=== PATIENT | female | born 1985 | race Caucasian/White ===

== ENCOUNTER → 2018-05-11 21:24 | Outpatient (CLI) | payer MEDICAID, SELFPAY ==
[2018-05-11 23:01] LABS: Chlamydia Trachomatis by PCR Negative (Negative); Neisserai gonorrhoeae by PCR Negative (Negative); Probe Check PASS; Sample Adequacy Control PASS; Specimen Processing Control PASS
[2018-05-18 15:44] LABS: HPV APTIMA, High Risk Positive (Negative)
== END ==
PROVIDERS: Family Provider Internal Medicine; PCP Internal Medicine; Referring Provider Obstetrics & Gynecology; Visit Provider Obstetrics & Gynecology
DX: Z11.3 Encounter for screening for infections with a predominantly sexual mode of transmission (principal); Z12.4 Encounter for screening for malignant neoplasm of cervix
CPT/HCPCS: 87491; 87591; 88175; G0145

== ENCOUNTER → 2018-05-16 16:24 | Outpatient (CLI) | payer MEDICAID, SELFPAY ==
[2018-05-16 18:26] LABS: HIV - WCH Non-Reactive (Nonreactive)
[2018-05-18 20:07] LABS: HCV Quant. RNA PCR HCV Not Detected IU/mL (.)
[2018-05-19 05:27] LABS: Rapid Plasmin Reagin (RPR) NONREACTIVE (NONREACTIVE)
[2018-05-19 09:08] LABS: HEPATITIS B SURFACE AG Negative (Negative); HSV 1 IgG < 0.91 index (0.00-0.90); HSV 2 IgG < 0.91 index (0.00-0.90)
== END ==
PROVIDERS: Family Provider Internal Medicine; PCP Internal Medicine; Referring Provider Obstetrics & Gynecology; Visit Provider Obstetrics & Gynecology
DX: Z11.3 Encounter for screening for infections with a predominantly sexual mode of transmission (principal)
CPT/HCPCS: 36415; 86592; 86695; 86696; 86703; 87340; 87522

== ENCOUNTER → 2018-06-01 15:20 | Outpatient (CLI) | payer MEDICAID, SELFPAY ==
[2018-06-01 16:40] LABS: Absolute Lymphocyte Count 1.81 X10^3/ul (0.83-4.51); Absolute Neutrophil Count 2.8 X10^3/uL (2.0-7.7); Basophil# 0.02 X10^3/uL; Basophil% 0.4 % (0-1); Eosinophil# 0.08 X10^3/uL; Eosinophils% 1.6 % (0-5); Hematocrit 42.6 % (37-47); Hemoglobin 13.8 g/dl (12.0-15.0); Lymphocyte # 1.81 X10^3/ul (4.0); Lymphocyte % 35.8 % (19-41); Mean Corp Hgb Conc 32.4 g/gl (32-36); Mean Corpuscular Hgb 30.8 pg (27.0-32.0); Mean Corpuscular Volume 95.1 fL (81-99); Mean Platelet Vol. 10.9 fl (6.2-12.0); Monocyte# 0.38 X10^3/uL; Monocyte% 7.5 % (0-10); Neutrophil # 2.76 X10^3/uL (2.7-7.7); Neutrophil % 54.5 % (47-70); Platelet Count 245 K/mm3 (150-450); RBC Distribution Width CV 12.5 % (11.6-14.6); RBC Distribution Width SD 42.5 fl (35.1-43.9); Red Blood Count 4.48 M/mm3 (4.2-5.4); White Blood Count 5.1 K/mm3 (4.4-11.0)
[2018-06-01 16:46] LABS: POSITIVE COUNT NO; POSITIVE DIFFERENTIAL NO; POSITIVE MORPHOLOGY NO
[2018-06-01 16:51] LABS: Thyroid Stim Hormone (TSH) 1.43 uIU/mL (0.358-3.74)
== END ==
PROVIDERS: Family Provider Internal Medicine; PCP Internal Medicine; Referring Provider Internal Medicine; Visit Provider Obstetrics & Gynecology
DX: N93.9 Abnormal uterine and vaginal bleeding, unspecified (principal)
CPT/HCPCS: 36415; 84443; 85025

== ENCOUNTER → 2018-11-22 | Outpatient (CLI) | payer MEDICAID, SELFPAY ==
[2018-11-22 08:09] VITALS: BMI 23.4
--- NOTE | 2018-11-22 08:20 | RAD_ITS ---
STUDY: X-RAY - LEFT WRIST REASON FOR EXAM: Female, 33 years old. Pain, decreased range of motion TECHNIQUE: 3 view(s) of the wrist were obtained. COMPARISON: None. FINDINGS: Normal visualized distal radius and ulna. Normal radiocarpal articulation. Normal distal radioulnar articulation. Normal carpal bones. Normal carpal articulations. Normal carpometacarpal articulation of the thumb. Normal second through fifth carpometacarpal articulations. Normal visualized metacarpal bones. The soft tissue structures are unremarkable. RAD/Wrist min 3 Views IMPRESSION: Normal x-ray examination of the wrist. Electronically Signed: Stew Soriano MD at 8:51 EDT , Service support ,
--- NOTE | 2018-11-22 08:20 | RAD_ITS ---
STUDY: X-RAY - CERVICAL SPINE REASON FOR EXAM: Female, 33 years old. Neck pain and headache TECHNIQUE: 6 view(s) of the cervical spine were obtained. COMPARISON: None FINDINGS: Normal anterior atlantoaxial articulation. Normal odontoid process. Normal cervical lordosis. Normal vertebral bodies and endplates. Normal disc space heights. Normal visualized intervertebral neuroforamina. The soft tissue structures are unremarkable. RAD/Cerv Spine 4 or 5 Views IMPRESSION: Normal x-ray examination of the visualized cervical spine. Electronically Signed: Stew Soriano MD at 8:52 EDT , Service support ,
== END | disposition home or self-care (01) ==
LOC: HPRAD 08:19
PROVIDERS: Family Provider Internal Medicine; PCP Internal Medicine; Referring Provider Physician Assistant; Visit Provider Physician Assistant
DX: M54.12 Radiculopathy, cervical region (principal); M25.512 Pain in left shoulder
CPT/HCPCS: 72050; 73110

== ENCOUNTER → 2019-05-28 16:31 | Outpatient (CLI) | payer MEDICAID, SELFPAY ==
[2019-05-28 16:04] VITALS: BMI 24.3
[2019-06-02 13:43] LABS: HPV APTIMA, High Risk Negative (Negative)
== END ==
PROVIDERS: Family Provider Internal Medicine; PCP Internal Medicine; Referring Provider Obstetrics & Gynecology; Visit Provider Obstetrics & Gynecology
DX: R30.0 Dysuria (principal); R87.810 Cervical high risk human papillomavirus (HPV) DNA test positive; N89.8 Other specified noninflammatory disorders of vagina
CPT/HCPCS: 87070; 87077; 87086; 87205; 87624; 88175; G0145

== ENCOUNTER → 2020-10-22 07:23 | Outpatient (CLI) | payer MEDICAID, SELFPAY ==
--- NOTE | 2020-10-22 07:24 | MRI_ITS ---
STUDY: MRI LEFT KNEE REASON FOR EXAM: Medial knee pain, twisting injury in August, prior surgery in 2010. TECHNIQUE: Standardized fat and water weighted pulse sequences were obtained in all 3 orthogonal planes. COMPARISON: Radiographs 08/25/2020 and MRI report 09/04/2010. FINDINGS: There is mild intrasubstance myxoid degeneration posterior horn of the meniscus without discrete medial meniscal tear. Normal hyaline cartilage of the medial femorotibial compartment. Normal medial femoral condyle and tibial plateau. Normal medial collateral ligamentous complex (MCL). Normal distal semimembranosus, gracilis and semitendinosus tendons. Normal lateral meniscus. There are postoperative changes from microfracture of the lateral femoral condyle (proton-density sagittal image 29) with mild irregularity of the overlying fibrocartilage (T2 sagittal images 17). Normal proximal tibiofibular articulation. Normal lateral collateral (fibular) ligament. Normal popliteus tendon. Normal biceps femoris tendon. Normal anterior cruciate ligament (ACL). Normal posterior cruciate ligament (PCL). There is mild lateral subluxation of the patella (T2 axial image 12). Normal hyaline cartilage of the patellofemoral compartment. Normal medial and lateral patellar retinaculum. Normal quadriceps tendon. Normal patellar tendon. Normal Hoffa''s fat pad. There is a minimal volume of fluid in the knee joint. There is a very small popliteal cyst (T2 coronal image 6). The otherwise visualized osseous structures are unremarkable. MRI/Lower Ext Joint Only (Routine) IMPRESSION: Mild irregularity of the overlying fibrocartilage of the lateral femoral condyle status post microfracture. Mild lateral subluxation of the patella. Very small popliteal cyst. No demonstrated meniscal or ligamentous injury. Electronically Signed: John Paul Aguilar MD at 8:55 EDT Tel , Service support ,
== END ==
PROVIDERS: PCP Internal Medicine; Referring Provider Orthopaedic Surgery; Visit Provider Orthopaedic Surgery
DX: S83.412A Sprain of medial collateral ligament of left knee, initial encounter (principal); M25.562 Pain in left knee
CPT/HCPCS: 73721

== ENCOUNTER → 2020-12-09 17:17 | Outpatient (CLI) | payer MEDICAID, SELFPAY ==
[2020-12-09 16:04] VITALS: BMI 25.4
[2020-12-15 12:29] LABS: HPV APTIMA, High Risk Negative (Negative)
== END ==
PROVIDERS: PCP Internal Medicine; Referring Provider Obstetrics & Gynecology; Visit Provider Obstetrics & Gynecology
DX: Z12.4 Encounter for screening for malignant neoplasm of cervix (principal)
CPT/HCPCS: 87624; 88175; G0145

== ENCOUNTER → 2021-01-15 07:00 | Outpatient (CLI) | payer MEDICAID, SELFPAY ==
[2020-12-09 16:04] VITALS: BMI 25.4
--- NOTE | 2021-01-15 07:05 | CT_ITS ---
STUDY: CT ABDOMEN AND PELVIS WITH CONTRAST REASON FOR EXAM: Female, 35 years old. Left upper quadrant and left flank pain for 2 months. RADIATION DOSAGE (If Supplied By Facility): CTDIvol = ( 11.91 ) mGy, DLP = ( 522.04 ) mGycm TECHNIQUE: Transaxial images were obtained from the dome of the diaphragm to the symphysis pubis with oral contrast. Oral and amp; IV Readi-CAT and amp; 100mL Isovue-300 was administered. Sagittal and coronal images were reconstructed. Individualized dose optimization techniques were used for this CT. COMPARISON: None. FINDINGS: There is a 6.9 mm calcified granuloma in the anterior aspect of the right middle lobe. The visualized portions of the heart are within normal limits. Normal liver. Normal gallbladder and extrahepatic biliary system. Borderline splenomegaly. Normal pancreas. Normal bilateral adrenal glands. Normal right kidney. Normal left kidney. Normal visualized stomach. Normal small intestine. Large amount of fecal material is seen throughout the colon. The appendix is visualized and appears normal. Normal abdominal aorta. Normal inferior vena cava. Normal retroperitoneum. Normal urinary bladder. There is a 3.1 cm x 1.7 cm right ovarian cyst. There is a small umbilical hernia containing fat. Normal osseous structures. CT/Abdomen/Pelvis WITH Contrast IMPRESSION: Large amount of fecal material is seen in the colon. Borderline splenomegaly. 3.1 cm x 1.7 cm right ovarian cyst. Electronically Signed: Marcello Mascorro MD at 9:03 EDT , Service support ,
== END ==
PROVIDERS: PCP Internal Medicine
DX: R10.9 Unspecified abdominal pain (principal)
CPT/HCPCS: 74177; Q9967

== ENCOUNTER 2021-01-24 14:43 | Emergency (ER) | payer MEDICAID, SELFPAY ==
[2020-12-09 16:04] VITALS: BMI 25.4
[2021-01-24 14:43] VITALS: BP 133/88; PULSE 108; RESP 15; TEMP 35.9; O2SAT 97; BMI 24.5
--- NOTE | 2021-01-24 16:01 | EX.ED.DYSGE1 ---
HPI History of Present Illness Chief Complaint: Abd Pain Informant: patient Narrative Narrative: Patient is a 35-year-old female who presents to the emergency department for left upper quadrant abdominal pain. This has been going on since Tuesday intermittently. She states over the past week it has becoming more constant. She has had a large work-up done at the [facility]. This included ultrasounds, lab work. She was seen 1 week ago had a CT scan of her abdomen. She describes the pain as a 7 out of 10. It goes around to the left side of her abdominal wall. She states that lying on her right side does seem to relieve this. She has not been vomiting. She denies any change in bowel movements. She denies any urinary symptoms or vaginal bleeding/discharge. She is not sure if she could be at this point. No previous abdominal surgeries. [facility] Medical History (Updated 01/24/21 @ 19:[address] Jayy Sandoval DO) Abdominal pain Cervical high risk HPV (human papillomavirus) test positive History of abnormal cervical Pap smear history of ANANT Knee pain Home Medications multivitamin 1 cap PO DAILY 04/17/18 [History Last Taken Unknown] fluticasone propionate 50 mcg/actuation nasal spray,suspension 1 spray INTRANASAL DAILY 01/22/20 [History Last Taken Unknown] etonogestrel 68 mg subdermal implant 1 implant SUBDERMAL ONCE 12/09/20 [History Last Taken Unknown] loratadine 10 mg tablet 10 mg PO DAILY 12/09/20 [History Last Taken Unknown] dicyclomine 20 mg PO BID PRN #20 tab 01/24/21 [Rx Last Taken Unknown] Allergy/AdvReac Type Severity Reaction Status Date / Time morphine AdvReac Other Verified 10/28/20 08:45 Family History Father Hypertension Surgical History History of knee surgery Social History Smoking Status: Never smoker second hand exposure: No alcohol intake: current details: social substance use type: does not use caffeine: Yes what type of physical activity do you participate in: none and walking frequency: 3-4 times per week duration: 15-30 minutes/day seatbelt use: always do you feel safe at home: Yes additional social history: single- babysitting ROS ROS ED Constitutional Constitutional ED: Denies chills or fever(s) Eyes Eyes: Denies change in vision ENT ENT ED: Denies epistaxis or rhinorrhea Cardiovascular Cardiovascular: Denies chest pain or palpitations Respiratory/Chest Respiratory/Chest: Denies cough, dyspnea or dyspnea on exertion Gastrointestinal Gastrointestinal: Reports abdominal pain and melena; Denies diarrhea, nausea or vomiting Genitourinary Genitourinary ED: Denies dysuria, hematuria or urinary frequency Musculoskeletal Musculoskeletal: Denies back pain or neck pain Integumentary Denies rash Neurologic Neurologic: Denies dizziness, headache(s) or weakness EXAM Physical Exam Const Vital Signs: 01/24/21 14:43 01/24/21 16:24 Temperature 96.7 F L Temperature Source Temporal Pulse Rate 108 H 84 Respiratory Rate 15 16 Blood Pressure 133/88 H 118/74 Blood Pressure Mean 103 88 Pulse Ox 97 100 Oxygen Delivery Method Room Air Room Air Positive well nourished and well developed General Appearance ED: well developed and NAD HEENT Reports normocephalic, head/scalp atraumatic and moist mucous membranes Eyes PERRL and EOMs intact bilaterally Neck no lymphadenopathy and supple General: Negative for tenderness Chest Wall inspection of chest normal Resp normal respiratory effort and clear to auscultation bilaterally Auscultation: Negative for rales, rhonchi or wheezes Cardio regular rate, regular rhythm and no murmurs GI normal to inspection, nondistended, normoactive bowel sounds GI Narrative: Tenderness on the left upper quadrant. Palpation: soft; Negative for guarding or rebound tenderness present Back/Spine no CVA tenderness Extremity normal to inspection General Extremety ED: Negative for edema or tenderness General Extremity: Negative for edema Neuro CN's II-XII intact bilaterally and no sensory deficits noted Sensorium / Orientation: alert Motor Exam: strength 5/5 throughout Psych mental status grossly normal Skin no rashes or lesions noted MDM MDM MDM Narrative Medical decision making narrative: Patient presents to the emerge department for acute on chronic exacerbation of left upper quadrant abdominal pain. Upon arrival to the emergency department she is mildly tachycardic. She has tenderness of the left upper quadrant. She did recently have a CT scan of her abdomen/pelvis. Will repeat basic lab work here and treat with Bentyl. Patient's lab work was very unremarkable. She does not have a high white blood cell count. No electrolyte disturbance. Liver enzymes within normal limits. Lipase is normal. Urine does not show any signs of infection. test is negative. On repeat examination she is crying holding her upper abdomen. Due to this we did perform a CT scan. This did show granulomatous calcifications of the spleen, intrarenal stones without any evidence of obstruction. This was all described to her. Given the fact this has been going on for multiple months I do feel she is appropriate for outpatient follow-up. She has been try to get into see a GI doctor and has been having difficulties will make a social work referral to help her with this. We will write a prescription for Bentyl for home treatment. Return precautions are reviewed with her including any worsening pain, developing fever/chills. She understands and is agreeable this plan. Discharged home in stable condition. All questions were answered. Lab Data Labs: Laboratory Results - last 24 hr 01/24/21 01/24/21 01/24/21 16:15 16:15 16:35 WBC 5.6 RBC 4.66 Hgb 14.2 Hct 44.1 MCV 94.6 MCH 30.5 MCHC 32.2 RDW Std Deviation 43.1 RDW Coeff of Ruthy 12.4 Plt Count 257 MPV 10.2 Immature Gran % (Auto) 0.200 Neut % (Auto) 58.8 Lymph % (Auto) 32.9 [place] % (Auto) 6.6 Eos % (Auto) 1.1 Baso % (Auto) 0.4 Absolute Neuts (auto) 3.3 Absolute Lymphs (auto) 1.84 Nucleated RBC % 0 Sodium 141 Potassium 3.6 Chloride 106 Carbon Dioxide 30.0 Anion Gap 5 BUN 12 Creatinine 0.83 Estim Creat Clear Calc 83.25 Est GFR (MDRD) Af Amer 102 Est GFR (MDRD) Non-Af 84 BUN/Creatinine Ratio 14.5 Glucose 96 Calcium 9.2 Total Bilirubin 0.60 AST 14 L ALT 27 Alkaline Phosphatase 105 Total Protein 7.7 Albumin 4.2 Globulin 3.5 Albumin/Globulin Ratio 1.2 Lipase 100 Urine Color Yellow Urine Clarity Clear Urine pH 7.0 Ur Specific [place] 1.010 Urine Protein Negative Urine Glucose (UA) Normal Urine Ketones Negative Urine Occult Blood Negative Urine Nitrite Negative Urine Bilirubin Negative Urine Urobilinogen Normal Ur Leukocyte Esterase 25 H Urine RBC 0-5 SEEN Urine WBC 0-5 SEEN Ur Squamous Epith Cells 0-5 SEEN Urine Bacteria 0 SEEN Urine Mucus 0 SEEN Urine Test Negative Radiography Diagnostic Testing: Radiology Impression Abdomen/Pelvis CT 01/24/21 17:59 IMPRESSION: Bilateral nephrolithiasis without hydronephrosis. Electronically Signed: Iker Singh MD ([place]) at 18:57 EDT , Service support , Discharge Plan Triage Chief Complaint: Abd Pain ED Provider: Jayy Sandoval Dx/Rx/DC Orders Clinical Impression: Abdominal pain Instructions: Abdominal Pain Prescriptions: New dicyclomine 20 mg tablet 20 mg PO BID PRN (Reason: pain) Qty: 20 RF: 0 No Action multivitamin capsule capsule 1 cap PO DAILY RF: 0 loratadine [Claritin] 10 mg tablet 10 mg PO DAILY RF: 0 Nexplanon 68 mg implant 1 implant subdermal ONCE RF: 0 fluticasone propionate 50 mcg/actuation spray,suspension 1 spray INTRANASAL DAILY RF: 0 Primary Care Provider: Elly Rosa Referrals: Elly Rosa MD [Primary Care Provider] - 2 Days Activity Restrictions/Additional Instructions: Social work consult has been made to help schedule your appointment with GI specialty. Disposition Disposition: Home, Self Care Discharge Date/Time: 01/24/21 19:41
[2021-01-24 16:24] VITALS: BP 118/74; PULSE 84; RESP 16; O2SAT 100
[2021-01-24] MEDS: Dicyclomine 20 MG/2 ML Vial IM (16:27)
[2021-01-24 16:42] LABS: Bacteria 0 SEEN /hpf (None Seen); Mucous, Urine 0 SEEN /hpf (<or=2+)
[2021-01-24 16:52] LABS: Color, Urine Yellow (Yellow); Glucose, Dipstick Normal (Normal); Ketone-Dipstick Negative (Negative); Leukocyte Esterase-Dipstick 25 /ul (Negative); Nitrite-Dipstick Negative (Negative); Occult Blood-Urine Negative /ul (Negative); Protein-Dipstick Negative (Negative); Urine Bilirubin Dipstick Negative (Negative); Urine Clarity Clear (Clear); Urine Urobilinogen Normal (Normal)
[2021-01-24 16:58] LABS: Internal QC Validated? YES +Cl - CLEAR BKGD; Pregnancy, Urine Negative Negative
[2021-01-24 17:01] LABS: Absolute Lymphocyte Count 1.84 X10^3/uL (0.83-4.51); Absolute Neutrophil Count 3.3 X10^3/uL (2.0-7.7); Basophil# 0.02 X10^3/uL; Basophil% 0.4 % (0-1); Eosinophil# 0.06 X10^3/uL; Eosinophils% 1.1 % (0-5); Hematocrit 44.1 % (37-47); Hemoglobin 14.2 g/dL (12.0-15.0); Lymphocyte # 1.84 X10^3/ul (0.83-4.51); Lymphocyte % 32.9 % (19-41); Mean Corp Hgb Conc 32.2 g/dL (32-36); Mean Corpuscular Hgb 30.5 pg (27.0-32.0); Mean Corpuscular Volume 94.6 fL (81-99); Mean Platelet Vol. 10.2 fl (6.2-12.0); Monocyte# 0.37 X10^3/uL; Monocyte% 6.6 % (0-10); NRBC Flagged by Analyzer 0 % (0-5); Neutrophil # 3.29 X10^3/uL (2.7-7.7); Neutrophil % 58.8 % (47-70); Platelet Count 257 K/mm3 (150-450); RBC Distribution Width CV 12.4 % (11.6-14.6); RBC Distribution Width SD 43.1 fl (35.1-43.9); Red Blood Count 4.66 M/mm3 (4.2-5.4); White Blood Count 5.6 K/mm3 (4.4-11.0)
[2021-01-24 17:01] LABS: Squamous Epithelial Cells - UA 0-5 SEEN /hpf (5-10)
[2021-01-24 17:02] LABS: Red Blood Cells-Urine 0-5 SEEN /hpf (0-5); White Blood Cells 0-5 SEEN /hpf (0-5)
[2021-01-24 17:09] LABS: ALB/GLOB Ratio 1.2 RATIO (0.9-2.4); AST(SGOT) 14 U/L (15-37); Alanine Aminotransfer ALT/SGPT 27 U/L (13-56); Albumin, Serum 4.2 g/dL (3.2-5.0); Alkaline Phosphatase 105 U/L (45-117); Anion Gap 5 (5-15); BUN 12 mg/dL (7-18); BUN/Creat Ratio 14.5 RATIO (10-20); Calcium,Total 9.2 mg/dL (8.5-10.1); Chloride 106 mmol/L (98-107); Creatinine, Serum 0.83 mg/dL (0.55-1.02); EST Glomerular Filtration Rate 84 mL/min (>60); Est Glom Filt Rate - Afr Amer 102 mL/min (>60); Estimated Creatinine Clearance 83.25 ml/min; Globulin 3.5 g/dL (2.2-4.2); Glucose 96 mg/dL (74-106); Lipase 100 U/L (73-393); Potassium 3.6 mmol/L (3.5-5.1); Protein, Total 7.7 g/dL (6.4-8.2); Sodium Level 141 mmol/L (136-145)
--- NOTE | 2021-01-24 17:59 | CT_ITS ---
EXAM: CT ABDOMEN AND PELVIS WITH INTRAVENOUS CONTRAST CLINICAL INDICATION: LUQ pain x 2 months TECHNIQUE: Helically acquired images were obtained of the abdomen and pelvis with intravenous contrast. This CT exam was performed using one or more of the following dose reduction techniques: automated exposure control, adjustment of the mA and/or kV according to patient size, and/or use of iterative reconstruction technique. This report was created using [employer] report generation technology. CONTRAST: IV 100mL Isovue-300 COMPARISON: 01/15/2021 FINDINGS: LOWER THORAX: Benign granuloma in the right lower lobe. No cardiomegaly. No significant pericardial effusion. ABDOMEN: LIVER: Unremarkable. Homogeneous. No focal mass. GALLBLADDER AND BILE DUCTS: Unremarkable. No calcified gallstones. No gallbladder distention or wall edema. No intra- or extrahepatic biliary ductal dilation. PANCREAS: Unremarkable. No focal cystic or solid mass. SPLEEN: Granulomatous calcifications of the spleen. No perisplenic fluid collection/stranding. ADRENALS: Unremarkable. No nodules. KIDNEYS AND URETERS: Nonobstructing 4 mm calculus of the left kidney is stable. Punctate calcification of the right kidney is stable. Normal renal size and position. STOMACH AND BOWEL: Unremarkable. No stomach or bowel distention. No focal inflammatory change. PELVIS: APPENDIX: No evidence of acute appendicitis. BLADDER: Unremarkable. REPRODUCTIVE: Unremarkable as visualized. No mass. ABDOMEN and PELVIS: INTRAPERITONEAL SPACE: Partial involution of right ovarian follicle/cyst. No pelvic free fluid. No free air. BONES/JOINTS: Unremarkable. No suspicious lytic or blastic abnormality. SOFT TISSUES: Unremarkable. No discrete abdominal or pelvic wall hernia. VASCULATURE: Unremarkable. Abdominal aorta is non-dilated. LYMPH NODES: Unremarkable. No enlarged lymph nodes. CT/Abdomen/Pelvis W IV Cont ONLY IMPRESSION: Bilateral nephrolithiasis without hydronephrosis. Electronically Signed: Iker Singh MD ([place]) at 18:57 EDT , Service support ,
[2021-01-24] MEDS: Ketorolac 15 MG/ML Vial IV (18:20)
--- NOTE | 2021-01-26 10:28 | CASEMGMT ---
ANITA PEREZ Referral Follow-up: Phone call placed to patient this AM. Pt explained that she has undergone a work-up at [facility] regarding her abd pain. Pt's next scheduled appointment is on 02/10/21 with [facility] Sandra who works under the GI physician. Pt was unable to recall Sandra's last name or the GI physician's name. Pt states her abd pain has been increasing which necessitated her visit to the ED on Tuesday. During that visit she noted the MSO4 did not relieve her pain but the Bentyl that she has been taking since discharge has been keeping it under control. Pt notes her pain to be constant and rates her pain currently at a 4-5 but without the medication it increases to a 10. Pt states the ED physician felt a colonoscopy earlier rather than later would be beneficial and recommended f/u with the [facility]. Pt states she would prefer to receive her care locally and would like to get scheduled with one of the surgeons from [facility] as any procedure needed she would prefer to have done at [facility]. This RN CM explained to pt that there is not currently a GI physician locally but that one will be coming later this summer which pt states she was aware. This RN CM explained that depending on her needs, she may need to follow-up with a GI physician. Pt expressed understanding. This RN CM called [facility] and spoke with Anne who states that Dr. Ziegler does have availability to see pt this week. Anne explained that depending on findings, pt may need to follow-up with GI but that Dr. Ziegler would be able to do the colonoscopy prior to 02/10/21. Pt name provided to Anne who states an office staff member will contact pt to schedule an appointment with Dr. Ziegler. This RN CM called pt to explain plan following discussion with Anne at [facility]. Pt agreeable to plan and was able to reiterate that depending on findings, she may need to follow-up with a GI physician. Pt denies any further needs at this time. Rocio Mejia RN CM
== END 2021-01-24 19:41 | disposition home or self-care (01) ==
PROVIDERS: Emergency Provider Emergency Medicine; PCP Internal Medicine
DX: R10.12 Left upper quadrant pain (principal); D73.89 Other diseases of spleen
CPT/HCPCS: 74177; 80053; 81001; 81025; 83690; 85025; 96372; 96374; 99283; Q9967; A4216

== ENCOUNTER 2021-01-30 09:12 | Emergency (ER) | payer MEDICAID, SELFPAY ==
[2021-01-27 08:39] VITALS: BMI 24.5
[2021-01-30 09:13] VITALS: BP 123/99; PULSE 127; RESP 20; TEMP 36.6; O2SAT 98; BMI 25.4
--- NOTE | 2021-01-30 09:24 | ED.VIS.DYS ---
HPI History of Present Illness Chief Complaint: Constipation Informant: patient Onset/Context/Timing Onset: Weeks Context: gradual Timing: Intermittent Current Severity: Mild Maximum Severity: Mild Narrative Narrative: 35-year-old female no significant past medical history prior knee scopes. She is never had any abdominal surgeries. She is currently on implanted control. States basically since this past Easter she has had intermittent abdominal complaints including constipation and diarrhea. She has been worked up and has had several CAT scans and has upcoming colonoscopy with Dr. Rosario Ziegler. She denies any fever or chills. She denies any weight loss. Prior similar symptoms: Yes Recent Illness/Hospitalization: No PFSH PFSH Medical History Abdominal pain Alcohol use Back pain Cervical high risk HPV (human papillomavirus) test positive Heartburn History of abnormal cervical Pap smear history of ANANT History of stress test Hx of constipation Knee pain Migraine headache Non-smoker Wears glasses Home Medications multivitamin 1 cap PO DAILY 04/17/18 [History Last Taken Unknown] fluticasone propionate 50 mcg/actuation nasal spray,suspension 1 spray INTRANASAL DAILY 01/22/20 [History Last Taken Unknown] etonogestrel 68 mg subdermal implant 1 implant SUBDERMAL ONCE 12/09/20 [History Last Taken Unknown] loratadine 10 mg tablet 10 mg PO DAILY 12/09/20 [History Last Taken Unknown] dicyclomine 20 mg PO BID PRN #20 tab 01/24/21 [Rx Last Taken Unknown] pantoprazole 40 mg tablet,delayed release 40 mg PO DAILY #30 tab 01/27/21 [Rx Last Taken Unknown] potassium chloride 10 mEq tablet,extended release 10 meq PO DAILY tab 01/27/21 [History Last Taken Unknown] ondansetron 4 mg PO Q6H PRN #10 tab 01/30/21 [Rx Last Taken Unknown] Allergy/AdvReac Type Severity Reaction Status Date / Time No Known Allergies Allergy Verified 01/30/21 09:15 Family History Father Hypertension Grandmother Colon cancer Thyroid disorder Diabetes Surgical History History of knee surgery Social History Smoking Status: Never smoker second hand exposure: No alcohol intake: current details: social substance use type: does not use caffeine: Yes what type of physical activity do you participate in: none and walking frequency: 3-4 times per week duration: 15-30 minutes/day seatbelt use: always do you feel safe at home: Yes additional social history: single- babysitting ROS ROS ED ROS Narrative GI symptoms such as intermittent cramping, diarrhea and constipation. Review of Systems ROS Unobtainable: Denies due to encephalopathy Constitutional Constitutional ED: Denies fever(s) Eyes Eyes: Denies change in vision ENT ENT ED: Denies ear pain Cardiovascular Cardiovascular: Denies chest pain Respiratory/Chest Respiratory/Chest: Denies cough or dyspnea Gastrointestinal Gastrointestinal: Reports abdominal pain, constipation, diarrhea, nausea and vomiting; Denies melena Genitourinary Genitourinary ED: Denies dysuria Musculoskeletal Musculoskeletal: Denies myalgias Integumentary Denies rash Neurologic Neurologic: Denies headache(s) Psychiatric Psychiatric: Denies depression Endocrine Endocrinology: Denies polyuria Hematologic/Lymphatic Hematologic/Lymphatic: Denies easy bruising Allergic/Immunologic Allergic/Immunologic ED: Denies urticaria EXAM Physical Exam Narrative Exam Narrative: Young female no acute distress vital signs stable afebrile. Exam benign. Moist mucous membranes. Abdomen soft, nontender. Nondistended. Normal bowel sounds no peritoneal signs. No hernias or masses. Const Vital Signs: 01/30/21 09:13 Temperature 97.9 F Temperature Source Temporal Pulse Rate 127 H Respiratory Rate 20 H Blood Pressure 123/99 H Blood Pressure Mean 107 Pulse Ox 98 Oxygen Delivery Method Room Air Positive well nourished and well developed General Appearance ED: well developed HEENT Reports moist mucous membranes atraumatic; Negative for trauma or tenderness Eyes PERRL and EOMs intact bilaterally Neck no lymphadenopathy, supple, no meningeal signs and no JVD General: Negative for tenderness Resp normal respiratory effort and clear to auscultation bilaterally Cardio regular rate, regular rhythm, S1 normal heart sound, S2 normal heart sound and no murmurs GI non-tender, non-distended and no masses Auscultation: normoactive bowel sounds; Negative for hyperactive bowel sounds Palpation: soft; Negative for tender, guarding or rebound tenderness present Back/Spine no CVA tenderness and normal to inspection Extremity normal to inspection General Extremety ED: Negative for edema or tenderness General Extremity: Negative for edema Neuro oriented x3 Sensorium / Orientation: alert, oriented to person and oriented to place; Negative for orientation impaired Psych mental status grossly normal Skin Lesions: no lesions Rashes: no rashes MDM MDM MDM Narrative Medical decision making narrative: 35-year-old female with recent GI symptoms. She has had extensive evaluation including CAT scans and has upcoming endoscopy. Should be treated IV fluids. KUB will be obtained to see if she is significantly constipated. We will check a CBC and a chemistry. Repeat exam patient is doing well at 10:57 AM. I spoke to her general surgeon. Patient be discharged home with [facility] with outpatient follow-up. Lab Data Attestation: I reviewed the patient's lab results. Lab results narrative: CBC normal white count 9. Hemoglobin 14.7. Chemistries normal gap of 8 creatinine 0.84. Glucose normal. Labs: Laboratory Results - last 24 hr 01/30/21 01/30/21 09:56 09:56 WBC 9.1 RBC 4.71 Hgb 14.7 Hct 43.9 MCV 93.2 MCH 31.2 MCHC 33.5 RDW Std Deviation 42.6 RDW Coeff of Ruthy 12.3 Plt Count 224 MPV 10.3 Immature Gran % (Auto) 0.100 Neut % (Auto) 91.2 H Lymph % (Auto) 2.5 L Reagan % (Auto) 6.0 Eos % (Auto) 0.0 Baso % (Auto) 0.2 Absolute Neuts (auto) 8.3 H Absolute Lymphs (auto) 0.23 L Nucleated RBC % 0 Differential Comment SCANNED Sodium 140 Potassium 3.6 Chloride 106 Carbon Dioxide 26.0 Anion Gap 8 BUN 17 Creatinine 0.84 Estim Creat Clear Calc 82.26 Est GFR (MDRD) Af Amer 101 Est GFR (MDRD) Non-Af 83 BUN/Creatinine Ratio 20.3 H Glucose 126 H Calcium 9.3 Radiography Diagnostic Testing: Radiology Impression KUB X-Ray 01/30/21 09:30 IMPRESSION: Moderate amount of fecal material is seen in the colon. Electronically Signed: Marcello Mascorro MD at 10:01 EDT , Service support , KUB 2 films both AP view. She has no constipation whatsoever. Normal bowel gas pattern. Limited to almost no stool. No signs of obstruction. Interpreted by myself. Discharge Plan Triage Chief Complaint: Constipation ED Provider: Adam Morgan Dx/Rx/DC Orders Clinical Impression: Abdominal pain, Vomiting Instructions: Abdominal Pain, ED Vomiting (Adult) Prescriptions: New ondansetron 4 mg tablet,disintegrating 4 mg PO Q6H PRN (Reason: nausea and vomiting) Qty: 10 RF: 0 No Action multivitamin capsule capsule 1 cap PO DAILY RF: 0 loratadine [Claritin] 10 mg tablet 10 mg PO DAILY RF: 0 Nexplanon 68 mg implant 1 implant subdermal ONCE RF: 0 fluticasone propionate 50 mcg/actuation spray,suspension 1 spray INTRANASAL DAILY RF: 0 potassium chloride 10 mEq tablet extended release 10 meq PO DAILY RF: 0 pantoprazole 40 mg tablet,delayed release (DR/EC) 40 mg PO DAILY Qty: 30 RF: 3 dicyclomine 20 mg tablet 20 mg PO BID PRN (Reason: pain) Qty: 20 RF: 0 Primary Care Provider: Elly Rosa Referrals: Elly Rosa MD [Primary Care Provider] - 3-5 Days if not improving Activity Restrictions/Additional Instructions: Plenty of fluids and rest. Increase your diet slowly as tolerated. Zofran as needed for nausea. You can either swallow it or let it dissolve underneath your tongue. Follow-up with your doctor if not improving return if you are feeling a lot worse. Your labs and x-ray today were unremarkable. There is no signs and off constipation. Disposition Disposition: Home, Self Care
--- NOTE | 2021-01-30 09:30 | RAD_ITS ---
STUDY: X-RAY - ABDOMEN/PELVIS REASON FOR EXAM: Female, 35 years old. Constipation TECHNIQUE: Single AP view of the abdomen / pelvis. COMPARISON: None. FINDINGS: There is a moderate amount of colonic fecal material. The visualized liver, spleen and kidneys are grossly normal in size and morphology. Normal soft tissue structures. Normal visualized osseous structures. RAD/Abdomen Single View IMPRESSION: Moderate amount of fecal material is seen in the colon. Electronically Signed: Marcello Mascorro MD at 10:01 EDT , Service support ,
[2021-01-30] MEDS: Ondansetron 4 MG/2 ML Vial IV (09:55)
[2021-01-30] MEDS: 0.9% Normal Saline 1,000 ML 1000 ML IV (09:55)
[2021-01-30 10:08] LABS: Absolute Lymphocyte Count 0.23 X10^3/uL (0.83-4.51); Absolute Neutrophil Count 8.3 X10^3/uL (2.0-7.7); Basophil# 0.02 X10^3/uL; Basophil% 0.2 % (0-1); Hematocrit 43.9 % (37-47); Hemoglobin 14.7 g/dL (12.0-15.0); Lymphocyte # 0.23 X10^3/ul (0.83-4.51); Lymphocyte % 2.5 % (19-41); Mean Corp Hgb Conc 33.5 g/dL (32-36); Mean Corpuscular Hgb 31.2 pg (27.0-32.0); Mean Corpuscular Volume 93.2 fL (81-99); Mean Platelet Vol. 10.3 fl (6.2-12.0); Monocyte# 0.54 X10^3/uL; NRBC Flagged by Analyzer 0 % (0-5); Neutrophil # 8.25 X10^3/uL (2.7-7.7); Neutrophil % 91.2 % (47-70); POSITIVE DIFFERENTIAL YES; Platelet Count 224 K/mm3 (150-450); RBC Distribution Width CV 12.3 % (11.6-14.6); RBC Distribution Width SD 42.6 fl (35.1-43.9); Red Blood Count 4.71 M/mm3 (4.2-5.4); White Blood Count 9.1 K/mm3 (4.4-11.0)
[2021-01-30 10:15] LABS: Anion Gap 8 (5-15); BUN 17 mg/dL (7-18); BUN/Creat Ratio 20.3 RATIO (10-20); Calcium,Total 9.3 mg/dL (8.5-10.1); Chloride 106 mmol/L (98-107); Creatinine, Serum 0.84 mg/dL (0.55-1.02); EST Glomerular Filtration Rate 83 mL/min (>60); Est Glom Filt Rate - Afr Amer 101 mL/min (>60); Estimated Creatinine Clearance 82.26 ml/min; Glucose 126 mg/dL (74-106); Potassium 3.6 mmol/L (3.5-5.1); Sodium Level 140 mmol/L (136-145)
[2021-01-30 10:18] LABS: Differential Indicated SCAN CRITERIA MET
[2021-01-30 10:30] LABS: Differential Comment SCANNED
== END 2021-01-30 11:13 | disposition home or self-care (01) ==
LOC: ED 10:12
PROVIDERS: Emergency Provider Emergency Medicine; PCP Internal Medicine
DX: R10.9 Unspecified abdominal pain (principal); R11.2 Nausea with vomiting, unspecified
CPT/HCPCS: 74018; 80048; 85025; 96361; 96374; 99283; A4216; J2405

== ENCOUNTER 2021-02-03 10:55 | Day surgery (SDC) | payer MEDICAID, SELFPAY ==
[2021-01-27 08:39] VITALS: BMI 24.5
[2021-02-03] VITALS (7 sets, daily range): BP systolic 109–133; BP diastolic 75–80; PULSE 62–85; RESP 16; TEMP 36.3–36.7; O2SAT 99–100; BMI 23.5
--- NOTE | 2021-02-03 | GASB_PTH ---
PATIENT: SHAMAR HSIEH LOC: EN U#:[id number] AGE/SX: 35/F ROOM: RE02/03/[address]: Dr. Donna Ziegler MD : 1985 BED: DIS: 02/03/2021 SPEC #: [id number] RECD: 02/03/21 13:37 STATUS: NATHAN YOLANDA #: [id number] REZA: 02/03/21 00:[address]: Donna Ziegler DEPT: SURGICAL PATHOLOGY RECD BY: Saeid Benjamin ENTERED: 02/04/21 08:53 SP TYPE: Gastric Bx OTHR DR: Dr. Elly Rosa MD Tissues: A - Gastric mucous membrane B - Gastric mucous membrane Procedures: Special Stain Group II Surgery Specimen Level IV Alcian Blue/PAS (control) HEADER OPERATION: Colonoscopy, EGD [place] PRE-OP DIAGNOSIS: LUQ abdomen pain, constipation TISSUE SUBMITTED: A ? Antrum biopsy for histo and H. pylori, B ? GE junction biopsy MICROSCOPIC DIAGNOSIS A. Gastric antrum, biopsy: Chronic gastritis. See comment. B. Gastroesophageal junction, biopsy: Gastric mucosa with mild chronic inflammation. No evidence of goblet cell metaplasia. See comment. AM:debra 02/05/2021 COMMENT A. The results of immunohistochemistry for Helicobacter pylori will be reported separately ([id number]). B. Alcian blue/PAS stain with matched control supports the above diagnosis. MICROSCOPIC DESCRIPTION Slides are reviewed. GROSS DESCRIPTION A - Received in fixative is one container labeled with the patient's name and designated antrum biopsy. The specimen consists of one irregular fragment of light bacon soft tissue that measures 0.2 x 0.2 x 0.1 cm. The specimen is totally submitted in one cassette. B - Received in fixative is one container labeled with the patient's name and designated GE junction biopsy. The specimen consists of one irregular fragment of light bacon soft tissue that measures 0.2 x 0.2 x 0.1 cm. The specimen is totally submitted in one cassette. / AM:debra 02/04/21 TC:3 CPT: 63343 x2 , 36355
[2021-02-03 11:29] LABS: Internal QC Validated? YES +Cl - CLEAR BKGD
[2021-02-03 11:30] LABS: Pregnancy, Urine Negative Negative
--- NOTE | 2021-02-03 11:37 | PCM.HP.BLA ---
History and Physical Date of Admission: 02/03/21 Date of Service: 01/27/21 MR#:[id number] Acct:[id number] Name: SHAMAR HSIEH :1985 Age/Sex: 35/F Rep #:[id number] Provider:Dr. Donna Ziegler MD Location:[facility] Status:Signed Intake Vital Signs 01/27/21 08:39 Height 5 ft 4 in Weight: 143 lb BMI 24.5 BP 115/72 Blood Pressure Location Rt brachial Position Sitting Respiration 20 H Pulse 96 Pulse Source NIBP Temp 98.4 F Temp Source Temporal Pulse Oximetry (%) 100 Oxygen Delivery Method room air Intake Visit Reasons: Abdominal Pain Chief Complaint: LUQ pain Final Inspector And Tester Required: No Is patient in pain?: Yes (LUQ into left back ) Pain scale (1-10): 7 Allergies morphine Adverse Reaction (Verified 01/27/21 08:42) Other Medications multivitamin 1 cap PO DAILY 04/17/18 [History Confirmed 01/27/21] fluticasone propionate 50 mcg/actuation nasal spray,suspension 1 spray INTRANASAL DAILY 01/22/20 [History Confirmed 01/27/21] etonogestrel 68 mg subdermal implant 1 implant SUBDERMAL ONCE 12/09/20 [History Confirmed 01/27/21] loratadine 10 mg tablet 10 mg PO DAILY 12/09/20 [History Confirmed 01/27/21] dicyclomine 20 mg PO BID PRN #20 tab 01/24/21 [Rx Confirmed 01/27/21] omeprazole 20 mg capsule,delayed release 40 mg PO DAILY cap 01/27/21 [History Confirmed 01/27/21] pantoprazole 40 mg tablet,delayed release 40 mg PO DAILY #30 tab 01/27/21 [Rx Confirmed 01/27/21] potassium chloride 10 mEq tablet,extended release 10 meq PO DAILY tab 01/27/21 [History Confirmed 01/27/21] Is last menstrual period known: No Post menopausal: No Patient : No PFSH Medical History Abdominal pain Cervical high risk HPV (human papillomavirus) test positive History of abnormal cervical Pap smear history of ANANT Knee pain Surgical History History of knee surgery Family History (Updated 01/27/21 @ 08:37 by Mamie Moore) Father Hypertension Grandmother Colon cancer Thyroid disorder Diabetes Social History Smoking Status: Never smoker second hand exposure: No alcohol intake: current details: social substance use type: does not use caffeine: Yes what type of physical activity do you participate in: none and walking frequency: 3-4 times per week duration: 15-30 minutes/day seatbelt use: always do you feel safe at home: Yes additional social history: single- babysitting HPI HPI HPI: SHAMAR HSIEH, is a 35 F who presents to the office today for an upper quadrant/flank pain. Patient states that this started on Tuesday in the left upper quadrant and moved to her back. She does give a history of recent knee surgeries which she was initially on sounds like naproxen and she had previously had a possible ulcer left upper quadrant pain in the past that she has not been on it for a while. Patient is only taken Tylenol if need be for pain. Since , patient states she has had irregular bowel movements she does mostly have a daily but occasionally she can have some diarrhea 6 episodes a day and then she will feel like she needs to go but is unable to but still have a bowel movement that day. Patient was initially started on omeprazole 20 mg daily and then she bumped up to 40 mg states that she did feel like she was about 75% better at that time however around mid December the left upper quadrant pain was little bit worse. Patient denies any burning up her esophagus but did states she could have some burning in her left upper quadrant occasionally. Patient has been tracking her water intake to make sure she is getting enough. Patient's initial CT abdomen pelvis from 01/15 did show some constipation. Patient has been taking MiraLAX a capful daily. Patient's repeat CAT scan on 01/20 report called bilateral nephrolithiasis with no obstruction did not comment on constipation however and with reviewing the film patient still has quite a bit of stool in her right and transverse colon. Patient is unsure how much fiber she gets in her diet daily. Patient was also given a prescription for dicyclomine from the ER 20 mg p.o. twice daily states this may be helping a little bit but unsure. ROS Gastro Gastrointestinal: Yes abdominal pain, Yes diarrhea, Yes constipation, No blood in stool, Yes acid reflux, Yes hemorrhoids, Yes ulcers, No gallbladder problem and No black,tarry stools Additional Details: Nausea, Denies vomiting Exam Const General: cooperative, healthy appearing, comfortable and no acute distress Neck Neck: normal visual inspection Resp Effort & Inspection: normal respiratory effort Cardio Rate: regular rate GI Inspection: non-distended Palpation: soft, no guarding and tender in the LUQ; with no rebound tenderness Skin General: no rashes or lesions noted Neuro General: patient oriented x3 Psych Affect: normal affect COVID (Procedure Consent) Procedure Criteria Procedure Criteria: Yes Elective The surgeon/proceduralist and patient have discussed in detail the risk of exposure to and/or potential harm posed by the COVID-19 virus with having a surgery/procedure at this time versus the risk of delaying the surgery/procedure. It is not possible to know either the risk of delaying the surgery or procedure or chance of getting an infection with perfect accuracy, but a joint decision was made between the patient and the surgeon/proceduralist to proceed at this time with the scheduled surgery/procedure as indicated on the consent form. Assessment and Plan Assessment and Plan (1) LUQ abdominal pain: Status: Acute (2) Constipation: Status: Acute Plan - Dr. Donna Ziegler MD: Viewed CT imaging with patient. Patient does still have a bit of constipation according to CT abdomen pelvis. Recommend patient try magnesium citrate this weekend we will plan for an EGD and colonoscopy. Also plan to switch patient from omeprazole to Protonix to see if that helps the left upper quadrant pain anymore as the omeprazole seem to work better at first. This also discussed with patient importance of hydration which sounds like patient is doing well at and then also tracking fiber intake her goal is greater than 25 g daily but recommend advancing slowly to figure out where she is at first prior to increasing fiber. I have discussed the above with the patient. I have offered the patient EGD and colonoscopy for evaluation. I have explained the risks/benefits of the procedure and described the procedure. I have discussed the risks with the patient, including but not limited to: infection, bleeding, perforation of the GI tract requiring emergency surgery, inability to complete the procedure, injury to any internal organs, complications of anesthesia, etc. - the patient understands and agrees to proceed. I have answered all the patient's questions to the patient's satisfaction and the patient has no further questions. The patient has been given instructions for the colon cleansing preparation. 2 days of clears, magnesium citrate the first day then MiraLAX Dulcolax split prep the second day. Donna Ziegler M.D. Pager: [phone] [facility] [address] [place] [address], [address] [place] [address] Office: [phone] Plan Details Other Medications: New: pantoprazole 40 mg PO DAILY 30 tabs 3RF Other Orders: Orders: Colonoscopy Today EGD Today Coding Level of Care Code Off vis,new,level 3 Diagnoses LUQ abdominal pain R10.12 Constipation K59.00 01/27/21 0936<Electronically signed by Donna Ziegler MD>Date Donna Ziegler MD
[2021-02-03] MEDS: Lactated Ringers 1,000 ML 100 ML IV (11:41)
--- NOTE | 2021-02-03 12:00 | IMM_PTH ---
PATIENT: SHAMAR HSIEH LOC: EN U#:[id number] AGE/SX: 35/F ROOM: RE02/03/[address]: Dr. Donna Ziegler MD : 1985 BED: DIS: 02/03/2021 SPEC #: [id number] RECD: 02/04/21 09:53 STATUS: NATHAN RERenea #: [id number] REZA: 02/03/21 12:[address]: Donna Ziegler DEPT: IMMUNOHISTOCHEMISTRY RECD BY: Judith Mata ENTERED: 02/04/21 09:54 SP TYPE: IMMUNO OTHR DR: Dr. Elly Rosa MD Tissues: A - Stomach, NOS Procedures: H Pylori (initial) PHYSICIAN & INSTITUTION [place] [address] SPECIMEN INFORMATION: Tissue Source: A ? Antrum biopsy Clinical Info: LUQ abdomen pain, constipation Specimen Number: [id number] CPT code: 72770 METHODOLOGY: Deparaffinized sections of prefer/formalin-fixed tissue or PAP/DQ stained slides are incubated with monoclonal/polyclonal antibodies/oligonucleotide probes. Localization is made via biotin free immunoperoxidase method. Appropriate controls are performed and reacted as expected. Results on target cell population are indicated in the following table: RESULTS: ANTIBODY / CLONE RESULT Block A H Pylori (polyclonal) negative These tests were developed and their performance characteristics determined by [facility]. They may not have been cleared or approved by the U.S. Food and Drug Administration. The FDA has determined that such clearance or approval is not necessary. INTERPRETATION: A. Antrum biopsy: Negative for Helicobacter pylori organisms. AM:debra 02/05/2021
--- NOTE | 2021-02-03 12:47 | OP.CCLET_ITS ---
02/03/2021 Elly Rosa [address] [place] [address] Re : Upper GI endoscopy procedure for Savanna Silva Dear Dr. Rosa This procedure was performed on Wednesday, February 03, 2021. My impressions and recommendations are as follows: Impressions : - Z-line variable, 40 cm from the incisors. Biopsied. - Erythematous mucosa in the antrum. Biopsied. - Normal examined duodenum. Recommendations : - Await pathology results. - Discharge patient to home. - Resume previous diet. - Continue present medications. - Use sucralfate tablets 1 gram PO QID for 2 weeks. My findings are described in the full procedure note, which is enclosed. If I can be of further assistance, please feel free to contact me at Doctor phone number(s): , Work: . Sincerely, MD Donna Hollingsworth MD 02/03/2021 12:47:12 PM This report has been signed electronically.
--- NOTE | 2021-02-03 12:47 | OP.EGD_ITS ---
Patient Name: Savanna Silva Procedure Date: 02/03/2021 11:55 AM Date of : 1985 Age: 35 Procedure: Upper GI endoscopy Indications: Abdominal pain in the left upper quadrant Providers: Donna Ziegler MD Referring MD: Elly Rosa Medicines: Monitored Anesthesia Care Patient Profile: This is a 35 year old female. Complications: No immediate complications. Procedure: Pre-Anesthesia Assessment: - Prior to the procedure, a History and Physical was performed, and patient medications and allergies were reviewed. The patient's tolerance of previous anesthesia was also reviewed. The risks and benefits of the procedure and the sedation options and risks were discussed with the patient. All questions were answered, and informed consent was obtained. Prior Anticoagulants: The patient has taken no previous anticoagulant or antiplatelet agents. ASA Grade Assessment: Per anesthesia. After reviewing the risks and benefits, the patient was deemed in satisfactory condition to undergo the procedure. After obtaining informed consent, the endoscope was passed under direct vision. Throughout the procedure, the patient's blood pressure, pulse, and oxygen saturations were monitored continuously. The gastroscope was introduced through the mouth, and advanced to the second part of duodenum. The upper GI endoscopy was accomplished without difficulty. The patient tolerated the procedure well. Scope In: 12:04:45 PM Scope Out: 12:11:20 PM Total Procedure Duration Time 0 hours 6 minutes 35 seconds Findings: The Z-line was variable and was found 40 cm from the incisors. Biopsies were taken with a cold forceps for histology. Mildly erythematous mucosa without bleeding was found in the gastric antrum. Biopsies were taken with a cold forceps for histology. Biopsies were taken with a cold forceps for Helicobacter pylori cultures. The examined duodenum was normal. The cardia and gastric fundus were normal on retroflexion. Impression: - Z-line variable, 40 cm from the incisors. Biopsied. - Erythematous mucosa in the antrum. Biopsied. - Normal examined duodenum. Recommendation: - Await pathology results. - Discharge patient to home. - Resume previous diet. - Continue present medications. - Use sucralfate tablets 1 gram PO QID for 2 weeks. Procedure Code(s): --- Professional --- 31788, Esophagogastroduodenoscopy, flexible, transoral; with biopsy, single or multiple Diagnosis Code(s): --- Professional --- K22.8, Other specified diseases of esophagus K31.89, Other diseases of stomach and duodenum R10.12, Left upper quadrant pain CPT copyright 2017 [employer]. All rights reserved. The codes documented in this report are preliminary and upon certified professional coder review may be revised to meet current compliance requirements. MD Donna Hollingsworth MD 02/03/2021 12:47:12 PM This report has been signed electronically. Number of Addenda: 0 Note Initiated On: 02/03/2021 11:55 AM
--- NOTE | 2021-02-03 12:50 | OP.COLON_ITS ---
Patient Name: Savanna Silva Procedure Date: 02/03/2021 12:12 PM Date of : 1985 Age: 35 Procedure: Colonoscopy Indications: Abdominal pain in the left upper quadrant, Constipation Providers: Donna Ziegler MD Referring MD: Elly Rosa Medicines: Monitored Anesthesia Care Patient Profile: This is a 35 year old female. Last Colonoscopy: none. The patient's first colonoscopy is today. Complications: No immediate complications. Procedure: Pre-Anesthesia Assessment: - Prior to the procedure, a History and Physical was performed, and patient medications and allergies were reviewed. The patient's tolerance of previous anesthesia was also reviewed. The risks and benefits of the procedure and the sedation options and risks were discussed with the patient. All questions were answered, and informed consent was obtained. Prior Anticoagulants: The patient has taken no previous anticoagulant or antiplatelet agents. ASA Grade Assessment: Per anesthesia. After reviewing the risks and benefits, the patient was deemed in satisfactory condition to undergo the procedure. After I obtained informed consent, the scope was passed under direct vision. Throughout the procedure, the patient's blood pressure, pulse, and oxygen saturations were monitored continuously. The pediatric colonoscope was introduced through the anus and advanced to the cecum, identified by the appendiceal orifice, ileocecal valve and palpation. The colonoscopy was technically difficult and complex due to a tortuous colon. The patient tolerated the procedure well. The quality of the bowel preparation was good. Scope In: 12:14:40 PM Scope Withdrawal Time 0 hours 11 minutes 53 seconds Scope Out: 12:38:30 PM Total Procedure Duration Time 0 hours 23 minutes 50 seconds Findings: Hemorrhoids were found on perianal exam. The entire examined colon appeared normal on direct and retroflexion views. Impression: - Hemorrhoids found on perianal exam. - The entire examined colon is normal on direct and retroflexion views. - No specimens collected. Recommendation: - Discharge patient to home. - High fiber diet. - Continue present medications. - Repeat colonoscopy [day] at age 45/50 depending on if insurance has changed the screening age to 45 as [employer] did change it to 45. Procedure Code(s): --- Professional --- 74335, Colonoscopy, flexible; diagnostic, including collection of specimen(s) by brushing or washing, when performed (separate procedure) Diagnosis Code(s): --- Professional --- K64.9, Unspecified hemorrhoids R10.12, Left upper quadrant pain K59.00, Constipation, unspecified CPT copyright 2017 [employer]. All rights reserved. The codes documented in this report are preliminary and upon digital marketing executive review may be revised to meet current compliance requirements. MD Donna Hollingsworth MD 02/03/2021 12:50:11 PM This report has been signed electronically. Number of Addenda: 0 Note Initiated On: 02/03/2021 12:12 PM
--- NOTE | 2021-02-03 12:50 | OP.CCLET_ITS ---
02/03/2021 Elly Rosa [address] [place] [address] Re : Colonoscopy procedure for Savanna Silva Dear Dr. Rosa This procedure was performed on Wednesday, February 03, 2021. My impressions and recommendations are as follows: Impressions : - Hemorrhoids found on perianal exam. - The entire examined colon is normal on direct and retroflexion views. - No specimens collected. Recommendations : - Discharge patient to home. - High fiber diet. - Continue present medications. - Repeat colonoscopy [day] at age 45/50 depending on if insurance has changed the screening age to 45 as [employer] did change it to 45. My findings are described in the full procedure note, which is enclosed. If I can be of further assistance, please feel free to contact me at Doctor phone number(s): , Work: . Sincerely, MD Donna Hollingsworth MD 02/03/2021 12:50:11 PM This report has been signed electronically.
== END 2021-02-03 13:47 ==
LOC: EN 10:56 → AC 10:56
PROVIDERS: Anesthesiology; PCP Internal Medicine; Referring Provider Internal Medicine; Visit Provider Surgery
PROC: 0DJD8ZZ Inspection of Lower Intestinal Tract, Via Natural or Artificial Opening Endoscopic (ICD-10-PCS; CPT 45378; principal; 2021-02-03 11:55)
DX: K29.50 Unspecified chronic gastritis without bleeding (principal); K59.00 Constipation, unspecified; K64.9 Unspecified hemorrhoids
CPT/HCPCS: 43239; 45378; 81025; 88305; 88313; 88342; J7120; J2405

== ENCOUNTER → 2021-12-15 | Outpatient (CLI) | payer MEDICAID, SELFPAY ==
[2021-12-17 22:07] LABS: Chlamydia By Nucleic Acid AMP Negative (Negative)
[2021-12-18 11:16] LABS: Gonococcus By Nucleic Acid AMP Negative (Negative)
== END | disposition home or self-care (01) ==
LOC: LABSPEC 16:48
PROVIDERS: PCP Internal Medicine; Referring Provider Obstetrics & Gynecology; Visit Provider Obstetrics & Gynecology
DX: Z11.3 Encounter for screening for infections with a predominantly sexual mode of transmission (principal)
CPT/HCPCS: 87491; 87591

== ENCOUNTER 2022-04-19 18:19 | Observation (INO) | payer MEDICAID, SELFPAY ==
[2022-04-19 18:19] VITALS: BP 130/85; PULSE 90; RESP 18; TEMP 36.6; O2SAT 98; BMI 27.4
[2022-04-19 18:34] LABS: Mucous, Urine 0 SEEN /hpf (<or=2+)
[2022-04-19 18:46] LABS: Color, Urine Yellow (Yellow); Glucose, Dipstick Normal (Normal); Ketone-Dipstick 5 mg/dl (Negative); Leukocyte Esterase-Dipstick Negative /ul (Negative); Nitrite-Dipstick Negative (Negative); Occult Blood-Urine 250 /ul (Negative); Protein-Dipstick Negative (Negative); Specific Gravity, Urine 1.015 (1.002-1.030); Urine Bilirubin Dipstick Negative (Negative); Urine Clarity Sl. Cloudy (Clear); Urine Urobilinogen Normal (Normal)
[2022-04-19 18:55] LABS: Bacteria RARE /hpf (None Seen); Red Blood Cells-Urine 0-5 SEEN /hpf (0-5); Squamous Epithelial Cells - UA 0-5 SEEN /hpf (5-10); White Blood Cells 0-5 SEEN /hpf (0-5)
[2022-04-19 19:02] LABS: Absolute Lymphocyte Count 2.45 X10^3/uL (0.83-4.51); Absolute Neutrophil Count 3.7 X10^3/uL (2.0-7.7); Basophil# 0.03 X10^3/uL; Basophil% 0.5 % (0-1); Eosinophil# 0.03 X10^3/uL; Eosinophils% 0.5 % (0-5); Hematocrit 45.4 % (37-47); Hemoglobin 15.1 g/dL (12.0-15.0); Lymphocyte # 2.45 X10^3/ul (0.83-4.51); Mean Corp Hgb Conc 33.3 g/dL (32-36); Mean Corpuscular Hgb 31.7 pg (27.0-32.0); Mean Corpuscular Volume 95.2 fL (81-99); Mean Platelet Vol. 9.9 fl (6.2-12.0); Monocyte# 0.41 X10^3/uL; Monocyte% 6.2 % (0-10); NRBC Flagged by Analyzer 0 % (0-5); Neutrophil % 55.6 % (47-70); Platelet Count 323 K/mm3 (150-450); RBC Distribution Width CV 12.2 % (11.6-14.6); RBC Distribution Width SD 42.7 fl (35.1-43.9); Red Blood Count 4.77 M/mm3 (4.2-5.4); White Blood Count 6.6 K/mm3 (4.4-11.0)
[2022-04-19 19:12] LABS: Internal QC Validated? YES +Cl - CLEAR BKGD; Pregnancy, Serum, hCG Quali. NEGATIVE Negative
[2022-04-19 19:17] LABS: Anion Gap 8 (5-15); BUN 12 mg/dL (7-18); BUN/Creat Ratio 14.4 RATIO (10-20); Calcium,Total 10.1 mg/dL (8.5-10.1); Chloride 104 mmol/L (98-107); Creatinine, Serum 0.83 mg/dL (0.55-1.02); EST Glomerular Filtration Rate 83 mL/min (>60); Est Glom Filt Rate - Afr Amer 100 mL/min (>60); Estimated Creatinine Clearance 78.26 ml/min; Glucose 105 mg/dL (74-106); Potassium 3.4 mmol/L (3.5-5.1); Sodium Level 141 mmol/L (136-145)
[2022-04-19 21:40] VITALS: BP 125/71; PULSE 76; RESP 18; O2SAT 95
--- NOTE | 2022-04-19 21:45 | CT_ITS ---
STUDY: CT ABDOMEN AND PELVIS WITH CONTRAST REASON FOR EXAM: Female, 37 years old. Right lower quadrant pain, anorexia, guarding RADIATION DOSAGE (If Supplied By Facility): CTDIvol = ( 9.18 ) mGy, DLP = ( 422.29 ) mGycm TECHNIQUE: Transaxial images were obtained from the dome of the diaphragm to the symphysis pubis without oral contrast. IV 100mL Isovue-370 was administered. Sagittal and coronal images were reconstructed. Individualized dose optimization techniques were used for this CT. COMPARISON: 01/24/2021 FINDINGS: The visualized lung bases are unremarkable. The visualized portions of the heart are within normal limits. Nonspecific fatty infiltrated liver without mass or torsion. Normal gallbladder and extrahepatic biliary system. Normal spleen. Normal pancreas. Normal bilateral adrenal glands. Normal right kidney. Normal left kidney. Normal visualized stomach. Normal small intestine. Diffuse fecal retention is noted throughout the colon.. There is borderline distention of the appendix approximately 8 mm in diameter. There is air within the lumen and there is no evidence for stranding in the periappendiceal fat Normal abdominal aorta. Normal inferior vena cava. Normal retroperitoneum. Incompletely distended thick-walled bladder likely of no significance Normal abdominal wall. Lumbar spine demonstrates mild spondylosis CT/Abdomen/Pelvis W IV Cont ONLY IMPRESSION: Nonspecific fecal retention in the colon without evidence for small bowel obstruction. Borderline dilatation of the appendix which can be due to very early changes of acute appendicitis however clinical correlation is recommended Electronically Signed: Gustavo Solorzano MD at 22:20 EDT ,
--- NOTE | 2022-04-19 22:16 | EDS_ITS ---
HPI HPI - GI History of Present Illness Chief Complaint: Abd Pain Detail of Chief Complaint: Migratory pain to the right lower quadrant Informant: patient Abdominal Pain/Flank Pain Onset: Today and Hours Context: Sudden Onset Timing: Continuous Quality: Aching Location: Epigastric and RLQ Current Severity: Mild Maximum Severity: Moderate Worsened by: Movement Relieved by: Nothing Nausea/Vomiting/Emesis GI Symptom: Positive for Nausea; Negative for Vomiting Diarrhea/Melena/Hematochezia GI Symptom: Negative for Diarrhea, Melena or Hematochezia Associated Symptoms Associated Symptoms: Negative for Dysuria, Frequency, Hematuria or Urgency LMP: Presently Narrative Narrative: Patient is a 37-year-old woman who presents with abdominal pain that was midline and now has migrated to the right lower quadrant. She denies history of endometriosis, ovarian cysts or STI. She denies dysuria, frequency, urgency or hematuria. Patient states she has had no appetite. She denies fever or chills. She denies intolerance to greasy or fried foods. There is no known family history cholelithiasis. She denies history of renal or ureterolithiasis. Prior similar symptoms: No Recent Illness/Hospitalization: No PFSH PFSH Medical History Abdominal pain Alcohol use Back pain Cervical high risk HPV (human papillomavirus) test positive Encounter for screening for COVID-19 Heartburn History of abnormal cervical Pap smear history of ANANT History of stress test Hx of constipation Knee pain Migraine headache Non-smoker Wears glasses Home Medications fluticasone propionate 50 mcg/actuation nasal spray,suspension 1 spray intranasal DAILY 01/22/20 [History Last Taken Unknown] etonogestrel 68 mg subdermal implant (Nexplanon) 1 implant subdermal ONCE 12/09/20 [History Last Taken Unknown] fluticasone propionate 50 mcg/actuation nasal spray,suspension (Flonase Allergy Relief) 2 spray intranasal DAILY 12/15/21 [History Last Taken Unknown] omeprazole 20 mg capsule,delayed release 20 mg PO DAILY 12/15/21 [History Last Taken Unknown] polyethylene glycol 3350 17 gram/dose oral powder (Miralax) 4 g PO DAILY 12/15/21 [History Last Taken Unknown] Allergy/AdvReac Type Severity Reaction Status Date / Time No Known Allergies Allergy Verified 04/19/22 18:23 Family History Father Hypertension Grandmother Colon cancer Thyroid disorder Diabetes Surgical History History of knee surgery Social History (Updated 04/19/22 @ 22:[address] Alexey Velasquez MD) household members: family Smoking Status: Never smoker second hand exposure: No alcohol intake: current details: social substance use type: does not use caffeine: Yes what type of physical activity do you participate in: none and walking frequency: 3-4 times per week duration: 15-30 minutes/day seatbelt use: always do you feel safe at home: Yes additional social history: single- babysitting ROS ROS ED Constitutional Constitutional ED: Denies chills, fever(s), subjective, sweats or weight loss ENT ENT ED: Denies ear pain, rhinorrhea or sore throat Cardiovascular Cardiovascular: Denies chest pain, orthopnea, palpitations, paroxysmal nocturnal dyspnea or racing heartbeat Respiratory/Chest Respiratory/Chest: Denies cough, dyspnea, dyspnea on exertion, orthopnea or paroxysmal nocturnal dyspnea Gastrointestinal Gastrointestinal: Reports abdominal pain, nausea and vomiting; Denies constipation, diarrhea or melena Genitourinary Genitourinary ED: Denies dysuria, hematuria or urinary frequency Musculoskeletal Musculoskeletal: Denies arthralgias, back pain, myalgias or neck pain Integumentary Denies Abrasions or rash Neurologic Neurologic: Denies headache(s), paresthesias or weakness Psychiatric Psychiatric: Denies anxiety or depression Endocrine Endocrinology: Denies polydipsia, polyphagia or polyuria Hematologic/Lymphatic Hematologic/Lymphatic: Denies easy bleeding or easy bruising EXAM Physical Exam Const Vital Signs: 04/19/22 18:19 04/19/22 21:40 Temperature 97.9 F Temperature Source Temporal Pulse Rate 90 76 Respiratory Rate 18 18 Blood Pressure 130/85 H 125/71 H Blood Pressure Mean 100 89 Pulse Ox 98 95 Oxygen Delivery Method Room Air Room Air Negative for well nourished, well developed or obese General Appearance ED: NAD; Negative for well developed or pallor Nutritional Appearance: Negative for obese HEENT Reports TM's clear and moist mucous membranes HEENT Narrative: Nares patent. Uvula midline. No deviation tongue with protrusion. No erythema exudate of posterior pharynx. normocephalic and atraumatic Tympanic Membrane ED: Yes TM's clear Eyes PERRL and EOMs intact bilaterally General Eye ED: Negative for pale conjunctiva or scleral icterus Neck no lymphadenopathy, supple and no JVD Resp normal respiratory effort Cardio regular rate, regular rhythm, S1 normal heart sound and S2 normal heart sound GI non-distended and no masses; Negative for non-tender Inspection: Negative for abdominal distention Auscultation: hypoactive bowel sounds Palpation: soft and tender RLQ; Negative for hepatomegaly, splenomegaly, mass or pulsatile mass Back/Spine no CVA tenderness Thoracic Spine / Upper Back: Negative for thoracic spinal tenderness Lumbar Spine / Lower Back: Negative for lumbar spinal tenderness Neuro CN's II-XII intact bilaterally, moves all extremities, no sensory deficits noted and gait normal Sensorium / Orientation: alert Motor Exam: strength 5/5 throughout Psych mental status grossly normal and thought process normal Skin no wounds General Skin Exam: Negative for jaundice or pallor Lesions: no lesions Rashes: no rashes MDM MDM MDM Narrative Medical decision making narrative: Frontal diagnosis would include appendicitis, mesenteric adenitis, Crohn's disease, gynecologic pathology. Will obtain CBC, electrolyte panel to assess renal function, UA and test. Pain assessed negative. CT of the abdomen was obtained to evaluate for appendicitis. In light of radiologist reading that this may represent early appendicitis even though there is no evidence of appendicitis will contact surgery. Plan is either observation or repeat examination in the morning at Dr. Scanlon's o ice. Based on patient's insurance and Dr. Scanlon prior experience she will observe the patient and reevaluate. If exam changes she will take the patient to the OR. Patient's been made aware of this. She understands. Lab Data Attestation: I reviewed the patient's lab results. Labs: Laboratory Results - last 24 hr 04/19/22 04/19/22 04/19/22 18:15 18:15 18:15 WBC 6.6 RBC 4.77 Hgb 15.1 H Hct 45.4 MCV 95.2 MCH 31.7 MCHC 33.3 RDW Std Deviation 42.7 RDW Coeff of [place] 12.2 Plt Count 323 MPV 9.9 Immature Gran % (Auto) 0.200 Neut % (Auto) 55.6 Lymph % (Auto) 37.0 [place] % (Auto) 6.2 Eos % (Auto) 0.5 Baso % (Auto) 0.5 Absolute Neuts (auto) 3.7 Absolute Lymphs (auto) 2.45 Nucleated RBC % 0 Sodium 141 Potassium 3.4 L Chloride 104 Carbon Dioxide 29.0 Anion Gap 8 BUN 12 Creatinine 0.83 Estim Creat Clear Calc 78.26 Est GFR (MDRD) Af Amer 100 Est GFR (MDRD) Non-Af 83 BUN/Creatinine Ratio 14.4 Glucose 105 Calcium 10.1 Serum , Qual Urine Color Yellow Urine Clarity Sl. Cloudy Urine pH 6.0 Ur Specific [place] 1.015 Urine Protein Negative Urine Glucose (UA) Normal Urine Ketones 5 H Urine Occult Blood 250 H Urine Nitrite Negative Urine Bilirubin Negative Urine Urobilinogen Normal Ur Leukocyte Esterase Negative Urine RBC 0-5 SEEN Urine WBC 0-5 SEEN Ur Squamous Epith Cells 0-5 SEEN Urine Bacteria RARE Urine Mucus 0 SEEN 04/19/22 18:15 WBC RBC Hgb Hct MCV MCH MCHC RDW Std Deviation RDW Coeff of [place] Plt Count MPV Immature Gran % (Auto) Neut % (Auto) Lymph % (Auto) [place] % (Auto) Eos % (Auto) Baso % (Auto) Absolute Neuts (auto) Absolute Lymphs (auto) Nucleated RBC % Sodium Potassium Chloride Carbon Dioxide Anion Gap BUN Creatinine Estim Creat Clear Calc Est GFR (MDRD) Af Amer Est GFR (MDRD) Non-Af BUN/Creatinine Ratio Glucose Calcium Serum , Qual NEGATIVE Urine Color Urine Clarity Urine pH Ur Specific [place] Urine Protein Urine Glucose (UA) Urine Ketones Urine Occult Blood Urine Nitrite Urine Bilirubin Urine Urobilinogen Ur Leukocyte Esterase Urine RBC Urine WBC Ur Squamous Epith Cells Urine Bacteria Urine Mucus Radiography Diagnostic Testing: Clinical Impression(s) from Imaging Studies Abdomen/Pelvis CT 04/19/22 21:45 IMPRESSION: Nonspecific fecal retention in the colon without evidence for small bowel obstruction. Borderline dilatation of the appendix which can be due to very early changes of acute appendicitis however clinical correlation is recommended Electronically Signed: Gustavo Solorzano MD at 22:20 EDT , Discharge Plan Dx/Rx/DC Orders Clinical Impression: Acute right lower quadrant pain Disposition Disposition: Acute Care Hospital [facility]
[2022-04-19] MEDS: Morphine 4 MG/ML Syringe IV (23:41)
[2022-04-19 23:42] VITALS: BP 102/76; PULSE 74; RESP 16; TEMP 36.8; O2SAT 96
[2022-04-19 23:55] VITALS: BP 115/70; PULSE 88; RESP 18; TEMP 37.1; O2SAT 99
[2022-04-20] VITALS (12 sets, daily range): BP systolic 91–111; BP diastolic 52–73; PULSE 75–101; RESP 16–18; TEMP 36.2–37; O2SAT 96–100; BMI 25.2
[2022-04-20] MEDS: 0.9% Saline Lock 10 ML Syringe IV ×2 (00:16→00:53)
[2022-04-20] MEDS: Lactated Ringers 1,000 ML 120 ML IV (00:16)
[2022-04-20] MEDS: Ondansetron 4 MG/2 ML Vial IV ×2 (00:52→07:59)
[2022-04-20 05:11] LABS: Absolute Lymphocyte Count 1.58 X10^3/uL (0.83-4.51); Absolute Neutrophil Count 4.6 X10^3/uL (2.0-7.7); Basophil# 0.01 X10^3/uL; Basophil% 0.2 % (0-1); Eosinophil# 0.01 X10^3/uL; Eosinophils% 0.2 % (0-5); Hematocrit 40.5 % (37-47); Hemoglobin 13.3 g/dL (12.0-15.0); Lymphocyte # 1.58 X10^3/ul (0.83-4.51); Lymphocyte % 23.8 % (19-41); Mean Corp Hgb Conc 32.8 g/dL (32-36); Mean Corpuscular Hgb 31.1 pg (27.0-32.0); Mean Corpuscular Volume 94.8 fL (81-99); Mean Platelet Vol. 10.1 fl (6.2-12.0); Monocyte# 0.38 X10^3/uL; Monocyte% 5.7 % (0-10); NRBC Flagged by Analyzer 0 % (0-5); Neutrophil # 4.63 X10^3/uL (2.7-7.7); Neutrophil % 69.8 % (47-70); Platelet Count 270 K/mm3 (150-450); RBC Distribution Width CV 12.3 % (11.6-14.6); RBC Distribution Width SD 42.9 fl (35.1-43.9); Red Blood Count 4.27 M/mm3 (4.2-5.4); White Blood Count 6.6 K/mm3 (4.4-11.0)
[2022-04-20 05:37] LABS: Anion Gap 7 (5-15); BUN 11 mg/dL (7-18); BUN/Creat Ratio 14.6 RATIO (10-20); Calcium,Total 9.2 mg/dL (8.5-10.1); Chloride 105 mmol/L (98-107); Creatinine, Serum 0.75 mg/dL (0.55-1.02); EST Glomerular Filtration Rate 93 mL/min (>60); Est Glom Filt Rate - Afr Amer 113 mL/min (>60); Estimated Creatinine Clearance 86.61 ml/min; Glucose 104 mg/dL (74-106); Potassium 3.8 mmol/L (3.5-5.1); Sodium Level 140 mmol/L (136-145)
--- NOTE | 2022-04-20 07:25 | PCM.HP.STD ---
HPI - General General Date of Admission: 04/19/22 HPI Narrative SHAMAR HSIEH, is a 37 F who presents to the ER due to right-sided abdominal pain. Patient states this started about noon. Patient had some nausea denies any vomiting. Patient states she had a good bowel movement yesterday before coming to the ER and has been having daily bowel movements. Patient had a CT abdomen pelvis which questioned possible borderline thickening of the gallbladder at 8 mm but also had some air in it with no obvious stranding currently. Question early appendicitis. Patient's blood counts within normal limits yesterday and today with no left shift. Patient changed states overnight the pain has been more in the right lower quadrant as to when she initially came it was more right mid abdomen. Patient states she does have chronic left-sided abdominal pain unsure of the source but the right-sided pain is new. [facility] Medical History (Updated 04/20/22 @ 07:[address] Donna Ziegler MD) Abdominal pain Cervical high risk HPV (human papillomavirus) test positive Encounter for screening for COVID-19 Heartburn History of abnormal cervical Pap smear history of ANANT History of stress test Hx of constipation Knee pain Migraine headache Non-smoker Seasonal allergies Wears glasses Home Medications fluticasone propionate 50 mcg/actuation nasal spray,suspension 1 spray intranasal BID allergies 01/22/20 [History Last Taken 04/19/22] etonogestrel 68 mg subdermal implant (Nexplanon) 1 implant subdermal ONCE control 12/09/20 [History Last Taken 08/01/19] omeprazole 20 mg capsule,delayed release 40 mg PO QHS GERD 12/15/21 [History Last Taken 04/17/22] cetirizine 10 mg capsule (Zyrtec) 10 mg PO QHS allergies 04/20/22 [History Last Taken 04/17/22] polyethylene glycol 3350 17 gram oral powder packet (Miralax) 17 g DAILY 04/20/22 [History Last Taken Unknown] Allergy/AdvReac Type Severity Reaction Status Date / Time No Known Allergies Allergy Verified 04/19/22 18:23 Family History Father Hypertension Grandmother Colon cancer Thyroid disorder Diabetes Surgical History History of knee surgery Social History (Updated 04/19/22 @ 22:[address] Alexey Velasquez MD) household members: family Smoking Status: Never smoker second hand exposure: No alcohol intake: current details: social substance use type: does not use caffeine: Yes what type of physical activity do you participate in: none and walking frequency: 3-4 times per week duration: 15-30 minutes/day seatbelt use: always do you feel safe at home: Yes additional social history: single- babysitting ROS Constitutional Constitutional: Reports anorexia; Denies chills or fever(s) ENT HEENT: Denies dizziness Cardiovascular Cardiovascular: Denies chest pain Respiratory/Chest Respiratory/Chest: Denies shortness of breath at rest Gastrointestinal Gastrointestinal: Reports abdominal pain, anorexia and nausea; Denies constipation, diarrhea, heartburn, hematemesis, melena or vomiting Genitourinary Genitourinary: Denies burning urination Musculoskeletal Musculoskeletal: Denies joint pain Integumentary Integumentary: Denies rash Neurologic Neurologic: Denies abnormal gait or focal weakness Psychiatric Psychiatric: Denies depression Endocrine Endocrinology: Denies palpitations Hematologic/Lymphatic Hematologic/Lymphatic: Denies anemia, easy bleeding or easy bruising Vital Signs Vital Signs Vital Signs: 04/19/22 18:19 04/19/22 21:40 04/19/22 23:42 Temperature 97.9 F 98.2 F Temperature Source Temporal Temporal Pulse Rate 90 76 74 Respiratory Rate 18 18 16 Respiratory Effort Respiratory Depth Respiratory Pattern Blood Pressure 130/85 H 125/71 H 102/76 Blood Pressure Mean 100 89 84 Blood Pressure Source Blood Pressure Position Blood Pressure Location Pulse Ox 98 95 96 Oxygen Delivery Method Room Air Room Air Room Air 04/19/22 23:55 04/20/22 01:06 04/19/22 23:55 Temperature 98.7 F 98.7 F Temperature Source Oral Oral Pulse Rate 88 88 Respiratory Rate 18 18 Respiratory Effort Normal Respiratory Depth Normal Respiratory Pattern Normal Blood Pressure 115/70 115/70 Blood Pressure Mean 85 85 Blood Pressure Source Monitor Blood Pressure Position Semi-Fowlers Blood Pressure Location Right Arm Pulse Ox 99 99 Oxygen Delivery Method Room Air Room Air Room Air 04/20/22 04:21 Temperature 97.9 F Temperature Source Oral Pulse Rate 85 Respiratory Rate 16 Respiratory Effort Respiratory Depth Respiratory Pattern Blood Pressure 95/63 Blood Pressure Mean 73 Blood Pressure Source Blood Pressure Position Blood Pressure Location Pulse Ox 99 Oxygen Delivery Method Room Air Weight Weight: 142 lb 13.753 oz Body Mass Index (BMI) 25.2 Physical Exam Const alert, oriented x3 and no apparent distress HEENT normocephalic and head/scalp atraumatic Resp normal respiratory effort Cardio regular rate GI soft to palpation; Negative for non-distended Palpation: tender RLQ and rebound tenderness present; Negative for guarding Extremity no clubbing, cyanosis or edema Neuro CN's II-XII intact bilaterally Psych mental status grossly normal Results Lab / Micro Data Result Diagrams: 04/20/22 04:48 04/20/22 04:48 Labs: Laboratory Results - last 24 hr 04/19/22 18:15: Urine Color Yellow, Urine Clarity Sl. Cloudy, Urine pH 6.0, Ur Specific [place] 1.015, Urine Protein Negative, Urine Glucose (UA) Normal, Urine Ketones 5 H, Urine Occult Blood 250 H, Urine Nitrite Negative, Urine Bilirubin Negative, Urine Urobilinogen Normal, Ur Leukocyte Esterase Negative, Urine RBC 0-5 SEEN, Urine WBC 0-5 SEEN, Ur Squamous Epith Cells 0-5 SEEN, Urine Bacteria RARE, Urine Mucus 0 SEEN 04/19/22 18:15: WBC 6.6, RBC 4.77, Hgb 15.1 H, Hct 45.4, MCV 95.2, MCH 31.7, MCHC 33.3, RDW Std Deviation 42.7, RDW Coeff of Ruthy 12.2, Plt Count 323, MPV 9.9, Immature Gran % (Auto) 0.200, Neut % (Auto) 55.6, Lymph % (Auto) 37.0, [place] % (Auto) 6.2, Eos % (Auto) 0.5, Baso % (Auto) 0.5, Absolute Neuts (auto) 3.7, Absolute Lymphs (auto) 2.45, Nucleated RBC % 0 04/19/22 18:15: Sodium 141, Potassium 3.4 L, Chloride 104, Carbon Dioxide 29.0, Anion Gap 8, BUN 12, Creatinine 0.83, Estim Creat Clear Calc 78.26, Est GFR (MDRD) Af Amer 100, Est GFR (MDRD) Non-Af 83, BUN/Creatinine Ratio 14.4, Glucose 105, Calcium 10.1 04/19/22 18:15: Serum , Qual NEGATIVE 04/20/22 04:48: WBC 6.6, RBC 4.27, Hgb 13.3, Hct 40.5, MCV 94.8, MCH 31.1, MCHC 32.8, RDW Std Deviation 42.9, RDW Coeff of [place]hy 12.3, Plt Count 270, MPV 10.1, Immature Gran % (Auto) 0.300, Neut % (Auto) 69.8, Lymph % (Auto) 23.8, [place] % (Auto) 5.7, Eos % (Auto) 0.2, Baso % (Auto) 0.2, Absolute Neuts (auto) 4.6, Absolute Lymphs (auto) 1.58, Nucleated RBC % 0 04/20/22 04:48: Sodium 140, Potassium 3.8, Chloride 105, Carbon Dioxide 28.0, Anion Gap 7, BUN 11, Creatinine 0.75, Estim Creat Clear Calc 86.61, Est GFR (MDRD) Af Amer 113, Est GFR (MDRD) Non-Af 93, BUN/Creatinine Ratio 14.6, Glucose 104, Calcium 9.2 Radiology Impression Abdomen/Pelvis CT 04/19/22 21:45 IMPRESSION: Nonspecific fecal retention in the colon without evidence for small bowel obstruction. Borderline dilatation of the appendix which can be due to very early changes of acute appendicitis however clinical correlation is recommended Electronically Signed: Gustavo Solorzano MD at 22:20 EDT Reading Location ID and State: [address] [place] [address] , Service support , Assessment & Plan Assessment/Plan (1) Appendicitis, acute: (2) Acute right lower quadrant pain: PLAN: Plan 1. Discussed procedure laparoscopic appendectomy, possible open along with the risk but not limited to bleeding, infection/abscess, injury to another organ (small bowel, colon, etc.), adhesion, hernia at incision sites, and anesthesia. Discussed with patient that even if her appendix appeared to be normal would plan on taking out her appendix during the procedure. Patient no further questions this time was agreeable with plan. Plan to start Zosyn IV. Patient n.p.o./IV fluids. Donna Ziegler M.D. Pager: [phone] [facility] [address] [place] [address], [address] [place] [address] Office: [phone]
[2022-04-20] MEDS: Ketorolac 15 MG/ML Vial IV (07:34)
[2022-04-20] MEDS: 0.9% Normal Saline 1,000 ML 120 ML IV (07:56)
[2022-04-20 12:15] LABS: Internal QC Validated? YES +Cl - CLEAR BKGD; Pregnancy, Urine Negative Negative
[2022-04-20] MEDS: Lactated Ringers 1,000 ML 15 ML IV (12:30)
--- NOTE | 2022-04-20 13:13 | OP.PCM_ITS ---
Report of Operation Date of Procedure: 04/20/22 Pre-Operative Diagnosis: Acute appendicitis Post-Operative Diagnosis: Same Surgery/Procedure Performed:: Laparoscopic appendectomy Surgeon: Donna Ziegler Type of Anesthesia: General/Supplemental Anesthesiologist: Thor Pierre Special Medications: Zosyn 3.375 g IV every 8 hours for acute appendicitis Specimen's removed: Appendix Estimated Blood Loss (mL): < 10 cc Description of Procedure: Indications: 37-year-old female presented to the ER with new right lower quadrant pain last night. On workup she was found to have possible acute appendicitis on CT and a normal white blood cell count. Patient was started on antibiotics this morning as she was still having right lower quadrant pain for acute appendicitis-Zosyn 3.375 g IV every 8 hours on the floor. Description of the procedure: The patient was placed on operating table in supine position. General anesthesia was induced. A timeout was completed verifying correct patient, procedure, position and special equipment prior to beginning procedure. Abdomen was prepped and draped in usual sterile fashion. Incision was made in the natural skin line below the umbilicus with a 15 blade scalpel. The fascia was elevated and incised. Entry into the peritoneum was confirmed visually and no bowel was noted in the vicinity of the incision. The Hendrickson trocar was placed under direct vision. Abdomen insufflated with a pressure of 12-15 mmHg. Patient tolerated insertion well. The scope was inserted and the abdomen inspected. No injuries from initial trocar placement were noted. Minimal amount of fluid was seen in the right lower quadrant. An direct visualization 2 -5 mm trocars were placed one above the symphysis pubis and below the hairline and one in the left lower quadrant lateral to the rectus muscle. Care is taken to avoid injury to the bladder and inferior epigastric vessels. The table was placed in Trendelenburg position with the right side elevated. The appendix was grasped with atraumatic grasper and elevated. It was noted to be minimally inflamed. A window was developed in the mesoappendix at the point between the base of the appendix and the cecum. An endoscopic 45 mm linear cutting stapler blue load was then used to divide and staple the base of the appendix. Enseal was used to divide the mesoappendix. The appendix was withdrawn into the Hendrickson trocar after being placed endoscopically retrieval bag. Appendix was sent to pathology. The appendiceal stump was then irrigated and hemostasis was assured. Fluid was suctioned no other pathology was identified. Secondary trochars were removed under direct visualization. No bleeding was no kayden trocar sites. The laparoscope withdrawn and the umbilical trocar removed. The abdomen was allowed to collapse. Local anesthesia of 20 mL of 0.25% Marcaine was used at the incision sites. The umbilical trocar site was closed with the [id number] 0 Vicryl suture. The skin was closed using sutures of 4-0 Monocryl and Steri-Strips. The patient was extubated. The patient tolerated the procedure well and was taken to the postanesthesia care unit in satisfactory condition. Complications None
--- NOTE | 2022-04-20 13:16 | DCINST_ITS ---
Discharge Instructions Diet Discharge Diet: Light diet - advance as tolerated Activity Discharge Activity: May Not Drive (while taking narcotic pain medications.) May shower in (days): 1 Lifting Restrictions: no lifting >20 lbs x 2 wks, no strenuous exercise for 4 wks Dressing / Incision Call your doctor if your incision/area has: Continuous Slow Oozing, Sudden Increased Bleeding, Increased Pain/ Swelling, Increased Redness, Foul Smelling Discharge and Swelling at the incision site Call your doctor if you observe: Fever of 101 or Higher Remove Dressing in: 2 days Cleanse incision/area with: Soap & Water Additional Dressing/Incision Instructions:: Steri-Strips will fall off in 7 to 10 days, if they do not fall off okay to remove after 10 days. Follow Up Care Please Follow Up With: Donna Ziegler MD When: Call the office for a follow-up appointment 2 weeks; after 5 PM and on the weekends call [phone] with any concerns. Test Results: Test results from this visit will be discussed in further detail at your follow- up appointment, if applicable. Discharge Plan Admission Admit Date/Time: 04/19/22 23:05 Attending Provider: Donna Ziegler Primary Care Provider: Elly Rosa Discharge Orders/Prescriptions Prescriptions: New oxycodone-acetaminophen 5-325 mg tablet 1 tab PO Q6H PRN (Reason: pain) 3 Days Qty: 10 0RF Continued Nexplanon 68 mg implant 1 implant subdermal ONCE Rx Instructions: as a single dose fluticasone propionate 50 mcg/actuation spray,suspension 1 spray INTRANASAL BID Rx Instructions: administer into each nostril omeprazole 20 mg capsule,delayed release(DR/EC) 40 mg PO QHS Zyrtec 10 mg Capsule 10 mg PO QHS polyethylene glycol 3350 [Miralax] 17 gram Powder In Packet 17 g DAILY Referrals / Follow Up: Elly Rosa MD [Primary Care Provider] - Disposition Disposition (needs filled in before D/C Order can be placed): Home, Self Care
--- NOTE | 2022-04-20 13:55 | APP_PTH ---
PATIENT: SHAMAR HSIEH LOC: [facility] U#:[id number] AGE/SX: 37/F ROOM: PR316 RE04/19/[address]: Dr. Donna Ziegler MD : 1985 BED: 1 DIS: 04/20/2022 SPEC #: [id number] RECD: 04/21/22 08:26 STATUS: NATHAN GUERRERO #: [id number] REZA: 04/20/22 13:[address]: Donna Ziegler DEPT: SURGICAL PATHOLOGY RECD BY: Kendall Fisher ENTERED: 04/21/22 10:19 SP TYPE: APPENDIX OTHR DR: Dr. Elly Rosa MD Tissues: Appendix, NOS Procedures: Surgery Specimen Level III HEADER OPERATION: Laparoscopic appendectomy PRE-OP DIAGNOSIS: Early appendicitis TISSUE SUBMITTED: Appendix MICROSCOPIC DIAGNOSIS Appendix, appendectomy: Early acute appendicitis. See comment. FABIAN:debra 04/22/2022 COMMENT Acute inflammation is noted in the lumen and superficial mucosa. Periappendiceal acute inflammation is not seen. MICROSCOPIC DESCRIPTION Slides are reviewed. GROSS DESCRIPTION Received in fixative is one container labeled with the patient's name and designated appendix. The specimen consists of a vermiform appendix measuring 7.5 cm in length and 0.7 cm in average diameter. No gross perforations are evident. Serial sections do not reveal mass lesions. Remote Sensing Technician sections are submitted in one cassette. / AM:debra 04/21/2022 TC:2 CPT: 37535
[2022-04-20] MEDS: Docusate Sodium 100 MG Capsule PO (14:47)
[2022-04-20] MEDS: oxyCODONE 5 MG Tablet PO (17:46)
== END 2022-04-20 19:42 | disposition home or self-care (01) ==
LOC: ED 23:07 → MS3 23:22
PROVIDERS: Anesthesiology; Admitting Provider Surgery; Emergency Provider Emergency Medicine; PCP Internal Medicine; Visit Provider Surgery
PROC: 0DTJ4ZZ Resection of Appendix, Percutaneous Endoscopic Approach (ICD-10-PCS; CPT 44970; principal; 2022-04-20 13:35)
DX: K35.80 Unspecified acute appendicitis (principal); K50.90 Crohn's disease, unspecified, without complications; Z79.899 Other long term (current) drug therapy
CPT/HCPCS: 44970; 00840; C1760; 36415; 74177; 80048; 81001; 81025; 84703; 85025; 88304; 96361; 96365; 96375; 96376; 99218; 99285; J7030; J7050; J7120; Q9967; A4216; G0378; J2405

== ENCOUNTER 2022-04-23 14:31 | Emergency (ER) | payer MEDICAID, SELFPAY ==
[2022-04-23 14:32] VITALS: BP 116/94; PULSE 76; RESP 18; TEMP 37.2; O2SAT 99; BMI 24.7
--- NOTE | 2022-04-23 14:48 | CT_ITS ---
INDICATION: upper abd pain, Kehr sign, recent appendectomy EXAMINATION: CT ABDOMEN AND PELVIS WITH CONTRAST - CT Abdomen And Pelvis W/ Contrast Injection TECHNIQUE: Helically acquired images were obtained of the abdomen and pelvis following IV contrast. A radiation dose optimization technique was used for this scan. IV Contrast dosage and agent: 100 mL of ISOVUE-370. Oral contrast: Yes. COMPARISON: January 18 01/18/2021 and 04/19/2022.. FINDINGS: LOWER CHEST: A 0.8 cm densely calcified nodule is visualized in the anterior inferior right upper lobe demonstrates no significant change in comparison to the prior study.. No cardiomegaly or pericardial effusion. LIVER: Homogeneous. No focal mass. GALLBLADDER AND BILIARY TREE: No calcified gallstones. No gallbladder distension or wall edema. No intra- or extrahepatic biliary ductal dilation. PANCREAS: No focal cystic or solid mass. SPLEEN: Normal size without focal cystic or solid mass. ADRENAL GLANDS: No nodules. KIDNEYS AND URETERS: Normal renal size and position. No hydronephrosis. PERITONEUM: Free air is visualized surrounding the peritoneal cavity, surgical clips visualized along the cecum consistent free air could be secondary to the appendectomy, it was not seen on the prior study. Small amount of free fluid is visualized in the cul-de-sac. Free air is visualized under the diaphragm seen anterior to the left lobe of the liver on axial series 3 image 18 this this could be contributing to the peritoneal irritation. BOWEL: The appendix is surgically absent. No stomach or bowel distension. No focal inflammatory change. Extensive stool visualized in the large bowel. LYMPH NODES: No enlarged mesenteric or retroperitoneal lymph nodes. VESSELS: Aorta is non-dilated. URINARY BLADDER: Unremarkable. REPRODUCTIVE ORGANS: No pelvic masses. Anteverted uterus is seen. ABDOMINAL WALL: No discrete abdominal or pelvic wall hernia. BONES: No lytic or blastic abnormality. CT/Abdomen/Pelvis W IV Cont ONLY IMPRESSION: Surgical clips visualized overlying the cecum, abundance of free air visualized throughout the peritoneal cavity, small amount of free fluid visualized in the cul-de-sac. All these could represent postoperative changes would recommend clinical correlation. Abundance of stool is visualized throughout the large bowel correlate for constipation status post surgery. Electronically Signed: Armando Eddy MD at 16:00 EDT ,
--- NOTE | 2022-04-23 14:48 | EKG12_ITS ---
Test Reason : ABD PAIN Blood Pressure : / mmHG Vent. Rate : 068 BPM Atrial Rate : 068 BPM P-R Int : 124 ms QRS Dur : 078 ms QT Int : 404 ms P-R-T Axes : 011 068 045 degrees QTc Int : 429 ms Normal sinus rhythm Normal ECG Confirmed by ENID ORR, MERLIN ([id number]), news videotape editor SUDHA ROLAND ([id number]) on 04/26/2022 9:35:29 AM Referred By: Confirmed By:MERLIN ROSSI MD
--- NOTE | 2022-04-23 14:48 | CT_ITS ---
EXAM: CT ANGIOGRAPHY CHEST WITHOUT AND WITH INTRAVENOUS CONTRAST CLINICAL INDICATION: pleuritic cp, sob, recent abd surgery TECHNIQUE: Helically acquired angiography images were obtained of the chest without and with intravenous contrast. This CT exam was performed using one or more of the following dose reduction techniques: automated exposure control, adjustment of the mA and/or kV according to patient size, and/or use of iterative reconstruction technique. This report was created using Desigual report generation technology. MIP reconstructed images were created and reviewed. CONTRAST: IV 100mL Isovue-370 COMPARISON: None. FINDINGS: PULMONARY ARTERIES: Normal. Normal in caliber. No evidence of pulmonary embolism. AORTA: Normal. Normal in caliber. No evidence of dissection. GREAT VESSELS OF AORTIC ARCH: Normal. Normal in caliber. No evidence of dissection. LUNGS AND PLEURAL SPACES: Normal. No mass. No consolidation or edema. No pleural effusion or thickening. No pneumothorax. HEART: Normal. Heart size is normal. No pericardial effusion. No signs of right heart strain, ratio of right ventricle to left ventricle measures less than 1. MEDIASTINUM: Normal. No mediastinal or hilar adenopathy. Esophagus is unremarkable. No hiatal hernia. THYROID: 6 and 4 mm right thyroid nodules. BONES/JOINTS: Normal. No suspicious lytic or blastic abnormality. SPLEEN: Flow artifacts noted within the spleen related to early arterial phase imaging. INTRAPERITONEAL SPACE: Pneumoperitoneum noted consistent with the history of recent abdominal surgery. CT/CTA Chest W/WO Contrast IMPRESSION: 1. No evidence of acute pulmonary embolism. 2. No acute cardiopulmonary abnormality. 3. Pneumoperitoneum related to recent surgery. Electronically Signed: Yohannes Killian MD at 15:56 EDT ,
--- NOTE | 2022-04-23 14:54 | EDS_ITS ---
HPI HPI - GI History of Present Illness Chief Complaint: Abd Pain Informant: patient Abdominal Pain/Flank Pain Onset: Yesterday Context: Gradual Onset Timing: Continuous Quality: Aching Location: Diffuse (upper abd and substernal mid-chest, and R shoulder/neck) Current Severity: Severe Maximum Severity: Severe Worsened by: Movement and - (breathing) Nausea/Vomiting/Emesis GI Symptom: Negative for Nausea or Vomiting Diarrhea/Melena/Hematochezia GI Symptom: Positive for - (first BM since surgery today, no improvement); Negative for Diarrhea, Melena or Hematochezia Associated Symptoms Associated Symptoms: Negative for Dysuria, Frequency, Hematuria or Urgency Narrative Narrative: Patient had appendectomy 3 days ago laparoscopic, she said she was taking Percocet postoperatively for residual right lower quadrant pain that has improved, but now she is having upper abdominal pain and chest pain, it started yesterday and was mild but it is worsening throughout the day today, it is making her feel little short of breath and feels like it hurts more to breathe but it is nonlateralizing until she complains of right-sided shoulder and lateral neck discomfort that is not worse to move. [facility] Medical History Abdominal pain Cervical high risk HPV (human papillomavirus) test positive Encounter for screening for COVID-19 Heartburn History of abnormal cervical Pap smear history of ANANT History of stress test Hx of constipation Knee pain Migraine headache Non-smoker Seasonal allergies Wears glasses Home Medications fluticasone propionate 50 mcg/actuation nasal spray,suspension 1 spray intranasal BID allergies 01/22/20 [History Last Taken 04/19/22] etonogestrel 68 mg subdermal implant (Nexplanon) 1 implant subdermal ONCE control 12/09/20 [History Last Taken 08/01/19] omeprazole 20 mg capsule,delayed release 40 mg PO QHS GERD 12/15/21 [History Last Taken 04/17/22] cetirizine 10 mg capsule (Zyrtec) 10 mg PO QHS allergies 04/20/22 [History Last Taken 04/17/22] oxycodone-acetaminophen 5 mg-325 mg tablet 1 tab PO Q6H PRN pain 3 days #10 tabs 04/20/22 [Rx Last Taken Unknown] polyethylene glycol 3350 17 gram oral powder packet (Miralax) 17 g DAILY 04/20/22 [History Last Taken Unknown] dicyclomine 10 mg capsule 20 mg PO Q6H PRN PRN abdominal discomfort #30 CAPSULES 04/23/22 [Rx Last Taken Unknown] Allergy/AdvReac Type Severity Reaction Status Date / Time No Known Allergies Allergy Verified 04/23/22 14:31 Family History Father Hypertension Grandmother Colon cancer Thyroid disorder Diabetes Surgical History (Updated 04/20/22 @ 13:[address] Donna Ziegler MD) History of knee surgery S/P laparoscopic appendectomy Social History household members: family Smoking Status: Never smoker second hand exposure: No alcohol intake: current details: social substance use type: does not use caffeine: Yes what type of physical activity do you participate in: none and walking frequency: 3-4 times per week duration: 15-30 minutes/day seatbelt use: always do you feel safe at home: Yes additional social history: single- babysitting ROS ROS ED Constitutional Constitutional ED: Denies chills or fever(s) Eyes Eyes: Denies change in vision or diplopia ENT ENT ED: Denies rhinorrhea or sore throat Cardiovascular Cardiovascular: Reports chest pain; Denies orthopnea or palpitations Respiratory/Chest Respiratory/Chest: Reports cough and dyspnea; Denies orthopnea Gastrointestinal Gastrointestinal: Reports abdominal pain; Denies diarrhea, melena, nausea or vomiting Genitourinary Genitourinary ED: Denies dysuria or hematuria Musculoskeletal Musculoskeletal: Reports neck pain; Denies back pain Integumentary Denies abscess or rash Neurologic Neurologic: Denies headache(s), paresthesias or weakness Psychiatric Psychiatric: Denies anxiety or suicidal thoughts EXAM Physical Exam Const Vital Signs: 04/23/22 14:32 04/23/22 14:48 Temperature 98.9 F Temperature Source Temporal Pulse Rate 76 Respiratory Rate 18 Blood Pressure 116/94 H Blood Pressure Mean 101 Pulse Ox 99 Oxygen Delivery Method Room Air Room Air Positive well nourished and well developed Constitutional Narrative: Uncomfortable, no distress General Appearance ED: well developed and NAD HEENT Reports moist mucous membranes normocephalic and atraumatic Eyes PERRL and EOMs intact bilaterally Neck full ROM and supple Resp normal respiratory effort and clear to auscultation bilaterally Resp Narrative: Uncomfortable in pain with deep breathing Cardio regular rate, regular rhythm and no murmurs GI non-distended GI Narrative: Extremely tender right upper quadrant, positive Ortega's. Also tender throughout the rest of the upper abdomen, less tender in the lower abdomen. Only guarding in the right upper quadrant. No rebound tenderness. Auscultation: normoactive bowel sounds Palpation: soft Back/Spine no CVA tenderness General Back: other FROM Extremity normal to inspection General Extremety ED: Negative for edema, pulses abnormal or tenderness General Extremity: Negative for edema or pulses abnormal Neuro oriented x3, CN's II-XII intact bilaterally and no sensory deficits noted Sensorium / Orientation: awake and alert Motor Exam: strength 5/5 throughout Skin no rashes or lesions noted and no wounds MDM MDM MDM Narrative Medical decision making narrative: Patient appear to be in a lot of discomfort, and what appears to be Kehr sign, with referred pain to the right shoulder and neck due to an abdominal process. Therefore I rescan her in order to rule out a postoperative complication, and since we are giving her IV contrast for the abdominal scan, we did CT angiography of the chest with the same bolus to rule out pulmonary embolus which is thought to be very unlikely here given the timing of her pain versus her surgery. All of this was negative for anything acute. Her EKG and troponin are also negative/normal. I gave her a GI cocktail in the meantime as well as some Zofran and morphine, she felt much better on reevaluation but still having some discomfort. She has a plethora of stool packed in her colon throughout, I suspect this is probably what is causing all of this, she is already on MiraLAX she has had chronic constipation problems since before the surgery for the last 1 or 2 years, I recommend doing a partial cleanse with MiraLAX at home with some around the cup of MiraLAX and plenty of fluids afterwards as long she is feeling up for drinking fluids, I gave her dicyclomine prior to discharge and a prescription for that use as needed and advised to continue her 40 mg of omeprazole per day and follow-up. She is comfortable with plan Lab Data Attestation: I reviewed the patient's lab results. Labs: Laboratory Results - last 24 hr 04/23/22 04/23/22 04/23/22 15:01 15:01 15:01 WBC 7.0 RBC 4.64 Hgb 14.5 Hct 43.3 MCV 93.3 MCH 31.3 MCHC 33.5 RDW Std Deviation 41.8 RDW Coeff of Ruthy 12.1 Plt Count 287 MPV 10.2 Immature Gran % (Auto) 0.100 Neut % (Auto) 65.5 Lymph % (Auto) 26.7 Johnston % (Auto) 6.3 Eos % (Auto) 1.1 Baso % (Auto) 0.3 Absolute Neuts (auto) 4.6 Absolute Lymphs (auto) 1.86 Nucleated RBC % 0 Sodium 142 Potassium 3.4 L Chloride 103 Carbon Dioxide 30.0 Anion Gap 9 BUN 9 Creatinine 0.76 Estim Creat Clear Calc 85.47 Est GFR (MDRD) Af Amer 111 Est GFR (MDRD) Non-Af 92 BUN/Creatinine Ratio 11.8 Glucose 94 Calcium 10.1 Troponin I High Sens 9 Urine Color Straw Urine Clarity Clear Urine pH 8.0 Ur Specific [place] 1.010 Urine Protein Negative Urine Glucose (UA) Normal Urine Ketones Negative Urine Occult Blood Negative Urine Nitrite Negative Urine Bilirubin Negative Urine Urobilinogen Normal Ur Leukocyte Esterase 25 H Urine RBC 0 SEEN Urine WBC 5-10 SEEN Ur Squamous Epith Cells 5-10 SEEN Urine Bacteria 2+ Urine Mucus 0 SEEN Radiography Diagnostic Testing: Clinical Impression(s) from Imaging Studies Abdomen/Pelvis CT 04/23/22 14:48 IMPRESSION: Surgical clips visualized overlying the cecum, abundance of free air visualized throughout the peritoneal cavity, small amount of free fluid visualized in the cul-de-sac. All these could represent postoperative changes would recommend clinical correlation. Abundance of stool is visualized throughout the large bowel correlate for constipation status post surgery. Electronically Signed: Armando Eddy MD at 16:00 EDT , Chest CTA 04/23/22 14:48 IMPRESSION: 1. No evidence of acute pulmonary embolism. 2. No acute cardiopulmonary abnormality. 3. Pneumoperitoneum related to recent surgery. Electronically Signed: Yohannes Killian MD at 15:56 EDT , Rhythm Strip Rhythm Strip: Sinus Rhythm Rate: 65 Ectopy: None EKG Initial EKG: Attestation: I personally reviewed and interpreted this EKG as follows: Interpretation: Sinus Rhythm and No Acute Injury Pattern Comments: normal EKG Discharge Plan Triage Chief Complaint: Abd Pain ED Provider: Carlito Alicea Dx/Rx/DC Orders Clinical Impression: Acute upper abdominal pain, Constipation, Chest pain Instructions: ED Constipation (Adult) Prescriptions: New dicyclomine 10 mg capsule 20 mg PO Q6H PRN PRN (Reason: abdominal discomfort) Qty: 30 0RF No Action Nexplanon 68 mg implant 1 implant subdermal ONCE Rx Instructions: as a single dose fluticasone propionate 50 mcg/actuation spray,suspension 1 spray INTRANASAL BID Rx Instructions: administer into each nostril omeprazole 20 mg capsule,delayed release(DR/EC) 40 mg PO QHS Zyrtec 10 mg Capsule 10 mg PO QHS polyethylene glycol 3350 [Miralax] 17 gram Powder In Packet 17 g DAILY oxycodone-acetaminophen 5-325 mg tablet 1 tab PO Q6H PRN (Reason: pain) 3 Days Qty: 10 0RF Primary Care Provider: Elly Rosa Referrals: Elly Rosa MD [Primary Care Provider] - 3-5 Days if not improving (Or your surgeon) Activity Restrictions/Additional Instructions: Avoid taking Percocet is much as you possibly can. 1 cup (8 ounces) of MiraLAX dissolved, with plenty of fluids afterwards, to see if that helps to cleanse out. Continue omeprazole as prescribed. An occasional dose of Mylanta may help if you are experiencing more discomfort in addition to the prescription as needed. Lots of Mylanta could also help constipate you so watch for that. Disposition Disposition: Home, Self Care
--- NOTE | 2022-04-23 14:54 | NURSING ---
NO OLD EKGS
[2022-04-23] MEDS: 0.9% Normal Saline 1,000 ML 999 ML IV (15:00)
[2022-04-23] MEDS: Ondansetron 4 MG/2 ML Vial IV (15:00)
[2022-04-23] MEDS: Morphine 4 MG/ML Syringe IV (15:00)
[2022-04-23 15:04] LABS: Mucous, Urine 0 SEEN /hpf (<or=2+); Red Blood Cells-Urine 0 SEEN /hpf (0-5)
[2022-04-23 15:11] LABS: Absolute Lymphocyte Count 1.86 X10^3/uL (0.83-4.51); Absolute Neutrophil Count 4.6 X10^3/uL (2.0-7.7); Basophil# 0.02 X10^3/uL; Basophil% 0.3 % (0-1); Eosinophil# 0.08 X10^3/uL; Eosinophils% 1.1 % (0-5); Hematocrit 43.3 % (37-47); Hemoglobin 14.5 g/dL (12.0-15.0); Lymphocyte # 1.86 X10^3/ul (0.83-4.51); Lymphocyte % 26.7 % (19-41); Mean Corp Hgb Conc 33.5 g/dL (32-36); Mean Corpuscular Hgb 31.3 pg (27.0-32.0); Mean Corpuscular Volume 93.3 fL (81-99); Mean Platelet Vol. 10.2 fl (6.2-12.0); Monocyte# 0.44 X10^3/uL; Monocyte% 6.3 % (0-10); NRBC Flagged by Analyzer 0 % (0-5); Neutrophil # 4.55 X10^3/uL (2.7-7.7); Neutrophil % 65.5 % (47-70); Platelet Count 287 K/mm3 (150-450); RBC Distribution Width CV 12.1 % (11.6-14.6); RBC Distribution Width SD 41.8 fl (35.1-43.9); Red Blood Count 4.64 M/mm3 (4.2-5.4)
[2022-04-23 15:18] LABS: Color, Urine Straw (Yellow); Glucose, Dipstick Normal (Normal); Ketone-Dipstick Negative (Negative); Leukocyte Esterase-Dipstick 25 /ul (Negative); Nitrite-Dipstick Negative (Negative); Occult Blood-Urine Negative /ul (Negative); Protein-Dipstick Negative (Negative); Urine Bilirubin Dipstick Negative (Negative); Urine Clarity Clear (Clear); Urine Urobilinogen Normal (Normal)
[2022-04-23 15:28] LABS: Squamous Epithelial Cells - UA 5-10 SEEN /hpf (5-10); White Blood Cells 5-10 SEEN /hpf (0-5)
[2022-04-23 15:29] LABS: Bacteria 2+ /hpf (None Seen)
[2022-04-23 15:33] LABS: Anion Gap 9 (5-15); BUN 9 mg/dL (7-18); BUN/Creat Ratio 11.8 RATIO (10-20); Calcium,Total 10.1 mg/dL (8.5-10.1); Chloride 103 mmol/L (98-107); Creatinine, Serum 0.76 mg/dL (0.55-1.02); EST Glomerular Filtration Rate 92 mL/min (>60); Est Glom Filt Rate - Afr Amer 111 mL/min (>60); Estimated Creatinine Clearance 85.47 ml/min; Glucose 94 mg/dL (74-106); Potassium 3.4 mmol/L (3.5-5.1); Sodium Level 142 mmol/L (136-145); Troponin-I HS 9 pg/mL (3.0-54.0)
[2022-04-23] MEDS: Dicyclomine 10 MG Capsule 20 MG PO (17:11)
[2022-04-23 17:14] VITALS: BP 111/72; PULSE 78; RESP 16; O2SAT 99
--- NOTE | 2022-04-23 17:15 | ED.RN ---
pt given written and verbal discharge instructions. informed not to drive for 6 hours after having morphine. pt reports she will call step dad and mother for a ride home. pt dresses self and verbalizes understanding and denies any further questions.
== END 2022-04-23 17:20 | disposition home or self-care (01) ==
PROVIDERS: Emergency Provider Emergency Medicine; PCP Internal Medicine; Visit Provider Emergency Medicine
DX: K59.00 Constipation, unspecified (principal); R10.11 Right upper quadrant pain
CPT/HCPCS: 71275; 74177; 80048; 81001; 84484; 85025; 93005; 96361; 96374; 96375; 99285; J7030; Q9967; A4216; J2405

== ENCOUNTER → 2022-07-08 | Outpatient (CLI) | payer MEDICAID, SELFPAY ==
[2022-07-08 16:54] LABS: Absolute Lymphocyte Count 2.14 X10^3/uL (0.83-4.51); Absolute Neutrophil Count 3.9 X10^3/uL (2.0-7.7); Basophil# 0.03 X10^3/uL; Basophil% 0.5 % (0-1); Eosinophil# 0.04 X10^3/uL; Eosinophils% 0.6 % (0-5); Hematocrit 44.1 % (37-47); Hemoglobin 14.6 g/dL (12.0-15.0); Lymphocyte # 2.14 X10^3/ul (0.83-4.51); Lymphocyte % 32.5 % (19-41); Mean Corp Hgb Conc 33.1 g/dL (32-36); Mean Corpuscular Hgb 31.6 pg (27.0-32.0); Mean Corpuscular Volume 95.5 fL (81-99); Mean Platelet Vol. 10.2 fl (6.2-12.0); Monocyte# 0.42 X10^3/uL; Monocyte% 6.4 % (0-10); NRBC Flagged by Analyzer 0 % (0-5); Neutrophil # 3.94 X10^3/uL (2.7-7.7); Neutrophil % 59.7 % (47-70); Platelet Count 292 K/mm3 (150-450); RBC Distribution Width CV 12.4 % (11.6-14.6); RBC Distribution Width SD 43.7 fl (35.1-43.9); Red Blood Count 4.62 M/mm3 (4.2-5.4); White Blood Count 6.6 K/mm3 (4.4-11.0)
[2022-07-08 17:22] LABS: Erythrocyte Sedimentation Rate 8 mm/hr (0-30)
[2022-07-08 17:32] LABS: ALB/GLOB Ratio 1.2 RATIO (0.9-2.4); AST(SGOT) 12 U/L (15-37); Alanine Aminotransfer ALT/SGPT 21 U/L (13-56); Albumin, Serum 4.4 g/dL (3.2-5.0); Alkaline Phosphatase 92 U/L (45-117); Anion Gap 5 (5-15); BUN 13 mg/dL (7-18); BUN/Creat Ratio 16.6 RATIO (10-20); CRP < 2.90 mg/L (0.0-3.0); Calcium,Total 9.5 mg/dL (8.5-10.1); Chloride 104 mmol/L (98-107); Creatinine, Serum 0.78 mg/dL (0.55-1.02); EST Glomerular Filtration Rate 89 mL/min (>60); Est Glom Filt Rate - Afr Amer 108 mL/min (>60); Globulin 3.8 g/dL (2.2-4.2); Glucose 95 mg/dL (74-106); Potassium 3.6 mmol/L (3.5-5.1); Protein, Total 8.2 g/dL (6.4-8.2); Sodium Level 138 mmol/L (136-145); Thyroid Stim Hormone (TSH) 1.68 uIU/mL (0.358-3.74)
[2022-07-12 16:08] LABS: Endomysial Antibody IgA Negative (Negative)
[2022-07-13 16:24] LABS: Immunoglobulin A 208 mg/dL (87-352); t-Transglutaminase IgA <2 U/mL (0-3)
== END | disposition home or self-care (01) ==
LOC: LAB 16:32
PROVIDERS: PCP Internal Medicine; Visit Provider Nurse Practitioner Adult Health
DX: R10.9 Unspecified abdominal pain (principal); K59.00 Constipation, unspecified; K29.70 Gastritis, unspecified, without bleeding
CPT/HCPCS: 36415; 80053; 82784; 83516; 84443; 85025; 85652; 86140; 86255

== ENCOUNTER 2022-07-22 18:28 | Emergency (ER) | payer MEDICAID, SELFPAY ==
[2022-07-22 18:29] VITALS: BP 123/81; PULSE 87; RESP 18; TEMP 36.3; O2SAT 99; BMI 25.9
[2022-07-22 19:23] LABS: Absolute Lymphocyte Count 1.68 X10^3/uL (0.83-4.51); Absolute Neutrophil Count 3.1 X10^3/uL (2.0-7.7); Basophil# 0.02 X10^3/uL; Basophil% 0.4 % (0-1); Eosinophil# 0.05 X10^3/uL; Hematocrit 40.2 % (37-47); Hemoglobin 13.1 g/dL (12.0-15.0); Lymphocyte # 1.68 X10^3/ul (0.83-4.51); Mean Corp Hgb Conc 32.6 g/dL (32-36); Mean Corpuscular Hgb 30.8 pg (27.0-32.0); Mean Corpuscular Volume 94.6 fL (81-99); Mean Platelet Vol. 9.9 fl (6.2-12.0); Monocyte% 7.6 % (0-10); NRBC Flagged by Analyzer 0 % (0-5); Neutrophil # 3.09 X10^3/uL (2.7-7.7); Neutrophil % 58.8 % (47-70); Platelet Count 209 K/mm3 (150-450); RBC Distribution Width SD 42.1 fl (35.1-43.9); Red Blood Count 4.25 M/mm3 (4.2-5.4); White Blood Count 5.3 K/mm3 (4.4-11.0)
[2022-07-22] MEDS: proMETHazine 25 MG/ML Syringe 12.5 MG IM (19:23)
[2022-07-22] MEDS: Ondansetron 4 MG/2 ML Vial IV (19:23)
[2022-07-22] MEDS: 0.9% Normal Saline 1,000 ML 1000 ML IV (19:23)
[2022-07-22 19:32] LABS: Internal QC Validated? YES +Cl - CLEAR BKGD; Pregnancy, Serum, hCG Quali. NEGATIVE Negative
[2022-07-22 19:39] LABS: ALB/GLOB Ratio 1.2 RATIO (0.9-2.4); AST(SGOT) 13 U/L (15-37); Alanine Aminotransfer ALT/SGPT 20 U/L (13-56); Albumin, Serum 3.7 g/dL (3.2-5.0); Alkaline Phosphatase 84 U/L (45-117); Anion Gap 2 (5-15); BUN 11 mg/dL (7-18); BUN/Creat Ratio 14.5 RATIO (10-20); Calcium,Total 8.9 mg/dL (8.5-10.1); Chloride 107 mmol/L (98-107); Creatinine, Serum 0.76 mg/dL (0.55-1.02); EST Glomerular Filtration Rate 92 mL/min (>60); Est Glom Filt Rate - Afr Amer 112 mL/min (>60); Estimated Creatinine Clearance 85.47 ml/min; Globulin 3.1 g/dL (2.2-4.2); Glucose 94 mg/dL (74-106); Lipase 291 U/L (73-393); Potassium 3.5 mmol/L (3.5-5.1); Protein, Total 6.8 g/dL (6.4-8.2); Sodium Level 140 mmol/L (136-145)
[2022-07-22 21:35] VITALS: BP 106/57; PULSE 86; RESP 15; O2SAT 99
--- NOTE | 2022-07-22 22:25 | EDS_ITS ---
HPI History of Present Illness Chief Complaint: General Illness Informant: patient Narrative Narrative: Patient states she has nausea and vomiting and just does not feel well. Her daughter was diagnosed with test positive influenza A. This patient started with symptoms Tuesday or possibly Tuesday. She was seen Tuesday. They did send off testing but she is not sure of the result. But they gave her Tamiflu. They also gave her Zofran to take. She vomited a lot Tuesday when she started the Tamiflu but since then she is only vomited once or twice but she just feels very nauseated all the time. She states she last took the Tamiflu yesterday morning and was not planning on taking it again. She comes in because she just has aches all over and does not feel well. She also states that she has a long history of nonspecific abdominal symptoms and she thinks everything she has now has just worsened her nonspecific abdominal illness. [facility] Medical History Abdominal pain Cervical high risk HPV (human papillomavirus) test positive Encounter for screening for COVID-19 Encounter to establish care Heartburn History of abnormal cervical Pap smear history of ANANT History of stress test Hx of constipation IBS (irritable bowel syndrome) Knee pain Migraine headache Non-smoker Seasonal allergies Wears glasses Home Medications fluticasone propionate 50 mcg/actuation nasal spray,suspension 1 spray intranasal BID allergies 01/22/20 [History Last Taken 04/19/22] etonogestrel 68 mg subdermal implant (Nexplanon) 1 implant subdermal ONCE control 12/09/20 [History Last Taken 08/01/19] cetirizine 10 mg capsule (Zyrtec) 10 mg PO QHS allergies 04/20/22 [History Last Taken 04/17/22] polyethylene glycol 3350 17 gram oral powder packet (Miralax) 17 g DAILY 04/20/22 [History Last Taken Unknown] pantoprazole 40 mg tablet,delayed release (Protonix) 40 mg PO DAILY #60 tabs 05/18/22 [Rx Last Taken Unknown] linaclotide 145 mcg capsule 145 mcg PO QAM #90 caps 07/02/22 [Rx Last Taken Unknown] ondansetron 4 mg disintegrating tablet 4 mg PO Q8H PRN nausea and vomiting #10 t abs 07/22/22 [Rx Last Taken Unknown] promethazine 25 mg tablet 25 mg PO TID PRN nausea and vomiting #14 tabs 07/22/22 [Rx Last Taken Unknown] Allergy/AdvReac Type Severity Reaction Status Date / Time morphine Allergy chest pain Verified 07/22/22 18:29 Family History Father Hypertension High cholesterol Suicide attempt Grandmother Colon cancer Thyroid disorder Diabetes Arthritis Myocardial infarction Hypertension High cholesterol Grandfather Myocardial infarction Hypertension High cholesterol Mother High cholesterol Surgical History History of endoscopy History of knee surgery Hx of colonoscopy S/P laparoscopic appendectomy Social History household members: family Smoking Status: Never smoker second hand exposure: No alcohol intake: current alcohol intake frequency: holidays/special occasions only details: social substance use type: does not use caffeine: Yes what type of physical activity do you participate in: walking frequency: daily duration: 15-30 minutes/day seatbelt use: always do you feel safe at home: Yes additional social history: single- babysitting ROS ROS ED Constitutional Constitutional ED: Reports fever(s) and subjective Eyes Eyes: Denies change in vision ENT ENT ED: Denies rhinorrhea or sore throat Cardiovascular Cardiovascular: Denies chest pain Respiratory/Chest Respiratory/Chest: Reports cough and other Details: She states she has a rare dry cough. Gastrointestinal Gastrointestinal: Reports abdominal pain, nausea and vomiting; Denies constipation, diarrhea or melena Genitourinary Genitourinary ED: Denies hematuria Musculoskeletal Musculoskeletal: Reports arthralgias and myalgias Integumentary Denies rash Neurologic Neurologic: Reports headache(s) Psychiatric Psychiatric: Reports anxiety Endocrine Endocrinology: Denies polydipsia or polyuria Hematologic/Lymphatic Hematologic/Lymphatic: Denies easy bleeding or easy bruising Allergic/Immunologic Allergic/Immunologic ED: Denies urticaria EXAM Physical Exam Const Vital Signs: 07/22/22 18:29 07/22/22 18:39 07/22/22 21:35 Temperature 97.4 F L Temperature Source Temporal Pulse Rate 87 86 Respiratory Rate 18 15 Respiratory Effort Normal Non-Labored Respiratory Pattern Normal Blood Pressure 123/81 H 106/57 L Blood Pressure Mean 95 73 Pulse Ox 99 99 Oxygen Delivery Method Room Air Room Air Positive well nourished and well developed General Appearance ED: well developed and NAD Eyes EOMs intact bilaterally General Eye ED: Negative for scleral icterus Neck supple Chest Wall inspection of chest normal Resp normal respiratory effort and clear to auscultation bilaterally Auscultation: Negative for rales, rhonchi or wheezes Cardio regular rate and regular rhythm GI normal to inspection, nondistended, normoactive bowel sounds and non-tender GI Narrative: Abdomen is actually benign to exam. Bowel sounds are normal. Not distended. No tenderness. Auscultation: normoactive bowel sounds Back/Spine no CVA tenderness Extremity normal to inspection General Extremety ED: Negative for edema or tenderness General Extremity: Negative for edema Neuro Sensorium / Orientation: alert Psych mental status grossly normal Skin no rashes or lesions noted MDM MDM MDM Narrative Medical decision making narrative: Patient was given IV fluids and meds. She is feeling better. Repeat exam is still benign but she feels better. is negative. White count hemoglobin platelets are all normal. Electrolytes are normal. Liver function test is normal. Lipase is normal. I think this patient likely has influenza A. She has symptoms of influenza with known exposure to influenza A and her daughter. I think she likely got increased nausea and vomiting from the Tamiflu. I will write for a few more Zofran I will also give Phenergan because that seemed to help here. Of note, she normally takes pantoprazole but has not been taking it because of the nausea. I encouraged her to try to get this down as I think it will help her. We discussed reasons to prompt return. Lab Data Attestation: I reviewed the patient's lab results. Labs: Laboratory Results - last 24 hr 07/22/22 07/22/22 07/22/22 19:16 19:16 19:16 WBC 5.3 RBC 4.25 Hgb 13.1 Hct 40.2 MCV 94.6 MCH 30.8 MCHC 32.6 RDW Std Deviation 42.1 RDW Coeff of Ruthy 12.0 Plt Count 209 MPV 9.9 Immature Gran % (Auto) 0.200 Neut % (Auto) 58.8 Lymph % (Auto) 32.0 [place] % (Auto) 7.6 Eos % (Auto) 1.0 Baso % (Auto) 0.4 Absolute Neuts (auto) 3.1 Absolute Lymphs (auto) 1.68 Nucleated RBC % 0 Sodium 140 Potassium 3.5 Chloride 107 Carbon Dioxide 31.0 Anion Gap 2 L BUN 11 Creatinine 0.76 Estim Creat Clear Calc 85.47 Est GFR (MDRD) Af Amer 112 Est GFR (MDRD) Non-Af 92 BUN/Creatinine Ratio 14.5 Glucose 94 Calcium 8.9 Total Bilirubin 0.90 AST 13 L ALT 20 Alkaline Phosphatase 84 Total Protein 6.8 Albumin 3.7 Globulin 3.1 Albumin/Globulin Ratio 1.2 Lipase 291 Serum , Qual NEGATIVE Discharge Plan Triage Chief Complaint: General Illness ED Provider: Jak Kraus Dx/Rx/DC Orders Clinical Impression: Influenza-like illness, Nausea & vomiting Instructions: ED Influenza (Adult), ED Vomiting (Adult) Prescriptions: New ondansetron 4 mg tablet,disintegrating 4 mg PO Q8H PRN (Reason: nausea and vomiting) Qty: 10 0RF promethazine 25 mg tablet 25 mg PO TID PRN (Reason: nausea and vomiting) Qty: 14 0RF No Action Nexplanon 68 mg implant 1 implant subdermal ONCE Rx Instructions: as a single dose fluticasone propionate 50 mcg/actuation spray,suspension 1 spray INTRANASAL BID Rx Instructions: administer into each nostril pantoprazole [Protonix] 40 mg tablet,delayed release (DR/EC) 40 mg PO DAILY Qty: 60 3RF Linzess 145 mcg capsule 145 mcg PO QAM Qty: 90 2RF Zyrtec 10 mg Capsule 10 mg PO QHS polyethylene glycol 3350 [Miralax] 17 gram Powder In Packet 17 g DAILY Primary Care Provider: Deb Gay Referrals: Deb Gay MD [Primary Care Provider] - 3-5 Days if not improving Disposition Disposition: Home, Self Care
== END 2022-07-22 23:05 | disposition home or self-care (01) ==
PROVIDERS: Emergency Provider Emergency Medicine; PCP Internal Medicine; Visit Provider Emergency Medicine
DX: R11.2 Nausea with vomiting, unspecified (principal)
CPT/HCPCS: 80053; 83690; 84703; 85025; 96365; 96372; 96375; 99283; J7030; A4216; J2405; J3490

== ENCOUNTER → 2022-09-30 | Outpatient (CLI) | payer MEDICAID, SELFPAY ==
--- NOTE | 2022-09-30 08:03 | US_ITS ---
STUDY: ABDOMINAL ULTRASOUND REASON FOR EXAM: Female, 37 years old. luq pain, ruq pain -- complete TECHNIQUE: Transabdominal ultrasound was performed with real-time and static macedo scale imaging. TECHNICAL QUALITY: Adequate. COMPARISON: None. FINDINGS: Liver: The liver measures 15.9 cm. There is normal echogenicity of the liver. The bile ducts are within normal limits. There is hepatic color flow. The direction of portal flow is hepatopetal. There is no demonstrated mass lesion. Gallbladder: Normal distended gallbladder. The gallbladder wall measures 2.0 mm. There is a negative sonographic Ortega''s sign. There is no pericholecystic fluid. There are no gallstones. There is a 2 mm x 2 mm x 3 mm polyp adherent to the gallbladder wall. Common Bile Duct (C.B.D.): The common bile duct measures 5.0 mm. Pancreas: Normal size of the head, body and tail of the pancreas. There is normal echogenicity of the pancreas. There is no demonstrated pancreatic mass or cyst. Spleen: Normal size of the spleen. The spleen measures 11.6 cm x 4.5 cm x 3.7 cm. Right Kidney: Normal size of the right kidney. The right kidney measures 9.6 cm x 5.6 cm x 4.5 cm. Normal renal cortex. The right cortex measures 1.3 cm. There is no demonstrated renal mass or cyst. There is no right hydronephrosis. Left Kidney: Normal size of the left kidney. The left kidney measures 10.9 cm x 4.3 cm x 5.4 cm. Normal renal cortex. The left cortex measures 1.2 cm. There is no demonstrated renal mass or cyst. There is no left hydronephrosis. Findings suggestive of a 4 mm x 3 mm x 2 mm calculus in the upper pole of the left kidney. Aorta: Unremarkable. I.V.C.: The IVC is patent. There is no ascites. US/Abdomen Complete IMPRESSION: 2 mm x 2 mm x 3 mm gallbladder polyp. Electronically Signed: Marcello Mascorro MD at 14:05 EST ,
== END | disposition home or self-care (01) ==
LOC: US 08:01
PROVIDERS: PCP Internal Medicine; Visit Provider Nurse Practitioner Adult Health
DX: R10.12 Left upper quadrant pain (principal)
CPT/HCPCS: 76700

== ENCOUNTER → 2022-10-19 | Outpatient (CLI) | payer MEDICAID, SELFPAY ==
--- NOTE | 2022-10-19 10:02 | NM_ITS ---
CLINICAL: 37-year-old female with history of epigastric pain. RADIONUCLIDE HEPATOBILIARY SCINTIGRAPHY COMPARISON: Abdominal ultrasound report 09/30/2022 FINDINGS: Following the intravenous administration of 5.5 mCi of 99m Tc Mebrofenin, hepatobiliary images reveal: 1. Relatively prompt and homogeneous radiopharmaceutical concentration is noted by a normal sized liver. No parenchymal defects are identified. 2. Gallbladder activity is identified at 30 minutes post radiopharmaceutical administration. 3. Small intestinal tract is observed at 15 minutes following tracer injection. 4. Washout of the radiopharmaceutical by the hepatic parenchyma appears qualitatively normal. Cholecystokinin (0.02 ug/kg) was administered intravenously over a 30-minute period. The post CCK gallbladder ejection fraction calculated at 20 minutes following Cholecystokinin administration was noted to be 95.0 % (normal greater than 35%). During 30 minutes of post CCK imaging, there is no scintigraphic evidence of reflux of the radiotracer into the common hepatic duct or refilling of the gallbladder. There is scintigraphic evidence of post CCK duodenal gastric reflux. NM/Hepatobilliary Img w/Pharm Int IMPRESSION: 1. A gallbladder ejection fraction calculated to be greater than 35% following the administration of Cholecystokinin makes the probability of functional hepatobiliary disease (gallbladder and/or sphincter of Oddi dyskinesia) and/or organic hepatobiliary disease (chronic acalculous cholecystitis and/or cystic duct syndrome) to be low. (Adam Pelayo et al, Journal of Nuclear Medicine 32:1695, 1990). 2. There is scintigraphic evidence of post CCK duodenal-gastric reflux as defined above. (Levon et al, Nucl Med Vijaya Janice Press pg. 35, 1980). Electronically Signed: Flavio Felipe, at 20:22 EDT ,
== END | disposition home or self-care (01) ==
LOC: NM 09:58
PROVIDERS: PCP Internal Medicine; Referring Provider Nurse Practitioner Adult Health; Visit Provider Nurse Practitioner Adult Health
DX: R10.9 Unspecified abdominal pain (principal)
CPT/HCPCS: 78227; A9537; J2805

== ENCOUNTER → 2023-01-05 | Outpatient (CLI) | payer MEDICAID, SELFPAY ==
[2023-01-07 21:08] LABS: Chlamydia By Nucleic Acid AMP Negative (Negative); Gonococcus By Nucleic Acid AMP Negative (Negative)
== END | disposition home or self-care (01) ==
LOC: LABSPEC 13:25
PROVIDERS: PCP Internal Medicine; Referring Provider Obstetrics & Gynecology; Visit Provider Obstetrics & Gynecology
DX: N89.8 Other specified noninflammatory disorders of vagina (principal); Z11.3 Encounter for screening for infections with a predominantly sexual mode of transmission
CPT/HCPCS: 87070; 87205; 87491; 87591

== ENCOUNTER 2023-02-02 06:57 | Day surgery (SDC) | payer MEDICAID, SELFPAY ==
[2023-02-02] VITALS (8 sets, daily range): BP systolic 91–101; BP diastolic 59–67; PULSE 51–76; RESP 16–18; TEMP 36.4–36.7; O2SAT 96–100; BMI 23.8
[2023-02-02 07:20] LABS: Internal QC Validated? YES +Cl - CLEAR BKGD; Pregnancy, Urine Negative Negative
[2023-02-02] MEDS: Lactated Ringers 1,000 ML 15 ML IV (07:21)
--- NOTE | 2023-02-02 07:59 | PCM.HP.BLA ---
History and Physical Date of Admission: 02/02/23 SHAMAR HSIEH, is a 37 F who presents to the office today for LUQ pain, chronic constipation, nausea. Woke up with nausea today; when this happens she tends to cough until she vomits. Zofran helps, needs a refill. No longer has throat burning. She is down to taking sucralfate just twice a day. And had decreased cholestyramine to every other day. Taking it daily seems to help with sore throat/burning, nausea. But taking it daily increases constipation. Has duodenal-gastric reflux on HIDA. Taking pantoprazole daily. Continues Linzess 290 mcg daily. She is scheduled for EGD on 02/02/23. Has chiropractic appt later today, will see if rib displacement is contributing to LUQ pain. Less muscle/joint pains on baclofen. male with recurrent episodes of upper abd pain/chest pain/diarrhea especially following greasy foods. US normal except small GB polyp. Dr Ziegler did EGD and and colonoscopy on 02/03/21 to evaluate the LUQ pain and constipation--z line variable, erythema in stomach, normal colon, biopsies chronic gastritis, negative Wood's, negative H Pylori 01/30/21 Abdomen Single View IMPRESSION: Moderate amount of fecal material is seen in the colon. 04/20/22 appendectomy ROS Const Constitutional: No fatigue ENT ENT: No difficulty swallowing Gastro GI: Positive for abdominal pain, bloating, constipation and heartburn; No belching, change in bowel habits, change in stool character, coffee ground emesis, cramping, diarrhea, difficulty swallowing, feeling full early, excessive flatus, incontinent of stools, Vomiting blood/hematemesis, Blood in stool, loose stools, Black,tarry stools, nausea/dyspepsia, pain with swallowing, vomiting or other Musc Musculoskeletal: No joint pain Skin Skin: No yellowing of the eye or itchy eyes Psych Psychiatric: No anxiety and No depression Endo Endocrine: No fatigue Aller/Imm Allergy/Immunologic: No itchy eyes Vickey/Lymp Hematologic/Lymphatic: No easy bleeding or easy bruising Exam Const General: cooperative, healthy appearing and uncomfortable (appears uncomfortable but nontoxic) Nutritional Appearance: average body habitus Orientation: alert, awake and oriented x3 HENMT Head: normal to inspection Eyes Sclera: sclerae normal Quality Reporting Tobacco Screening ([facility] 138) Smoking Status: Never smoker Assessment and Plan Assessment and Plan (1) LUQ abdominal pain: Status: Chronic Plan: Agree with Dr Gay to see chiropractor for this LUQ pain She is scheduled for EGD in January w/ /u in office after that (2) Nausea & vomiting: Status: Chronic Plan: Refill ondansetron (3) Constipation: Status: Chronic Plan: Continue Linzess 290 mcg daily Medications: Refilled ondansetron HCl 8 mg PO Q8H PRN 30 tabs 1RF nausea and vomiting Discontinued promethazine Discontinued Reason: None 25 mg PO TID PRN 14 tabs 0RF nausea and vomiting I have examined the patient and the H&P has been reviewed. There are no clinical changes since date of exam.
--- NOTE | 2023-02-02 08:00 | EGD_PTH ---
PATIENT: SHAMAR HSIEH LOC: EN U#:[id number] AGE/SX: 37/F ROOM: RE02/02/[address]: Dr. Lele Newman DO : 1985 BED: DIS: 02/02/2023 SPEC #: [id number] RECD: 02/02/23 10:14 STATUS: NATHAN YOLANDA #: [id number] REZA: 02/02/23 08:[address]: Lele Newman DEPT: SURGICAL PATHOLOGY RECD BY: Cortney Girard ENTERED: 02/02/23 13:00 SP TYPE: EGD BIOPSY OT DR: Dr. Deb Gay MD Tissues: A - Duodenum, NOS B - Gastric mucous membrane Procedures: Surgery Specimen Level IV HEADER OPERATION: EGD ([facility]) PRE-OP DIAGNOSIS: LUQ abdominal pain, nausea, vomiting, constipation TISSUE SUBMITTED: A - Duodenum biopsy, B - Antrum for H. pylori and path MICROSCOPIC DIAGNOSIS A. Duodenum, biopsy: Mild nonspecific chronic inflammation. B. Gastric antrum, biopsy: Mild chronic gastritis. See comment. AM:debra 02/03/2023 COMMENT B. The results of immunohistochemistry for Helicobacter pylori will be reported separately ([id number]). MICROSCOPIC DESCRIPTION Slides are reviewed. GROSS DESCRIPTION A - Received in fixative is one container labeled with the patient's name and designated duodenum biopsy. The specimen consists of two irregular fragments of light bacon soft tissue that in aggregate measure 0.8 x 0.6 x 0.1 cm. The specimen is totally submitted in one cassette. B - Received in fixative is one container labeled with the patient's name and designated antrum biopsy. The specimen consists of multiple irregular fragments of light bacon soft tissue that in aggregate measure 1.0 x 0.3 x 01 cm. The specimen is totally submitted in one cassette. / SJ:debra 02/02/2023 TC:3 CPT: 04256 x2
--- NOTE | 2023-02-02 08:00 | IMM_PTH ---
PATIENT: SHAMAR HSIEH LOC: EN U#:[id number] AGE/SX: 37/F ROOM: RE02/02/[address]: Dr. Lele Newman DO : 1985 BED: DIS: 02/02/2023 SPEC #: [id number] RECD: 02/02/23 13:29 STATUS: NATHAN YOLANDA #: [id number] REZA: 02/02/23 08:[address]: Lele Newman DEPT: IMMUNOHISTOCHEMISTRY RECD BY: Judith Mata ENTERED: 02/02/23 13:29 SP TYPE: IMMUNO OTHR DR: Dr. Deb Gay MD Tissues: B - Stomach, NOS Procedures: H Pylori (initial) PHYSICIAN & INSTITUTION [place] [id number] SPECIMEN INFORMATION: Tissue Source: B - Antrum biopsy Clinical Info: LUQ abdominal pain, nausea, vomiting, constipation Specimen Number: [id number] CPT code: 50185 METHODOLOGY: Deparaffinized sections of prefer/formalin-fixed tissue or PAP/DQ stained slides are incubated with monoclonal/polyclonal antibodies/oligonucleotide probes. Localization is made via biotin free immunoperoxidase method. Appropriate controls are performed and reacted as expected. Results on target cell population are indicated in the following table: RESULTS: ANTIBODY / CLONE RESULT Block B H Pylori (polyclonal) negative These tests were developed and their performance characteristics determined by [facility]. They may not have been cleared or approved by the U.S. Food and Drug Administration. The FDA has determined that such clearance or approval is not necessary. The above immunohistochemical/dualISH markers are ordered and reviewed by the Pathologist. INTERPRETATION: B. Antrum, biopsy: Negative for Helicobacter pylori organisms. AM:debra 02/03/2023
--- NOTE | 2023-02-02 08:25 | OP.EGD_ITS ---
Patient Name: Savanna Silva Procedure Date: 02/02/2023 7:58 AM Date of : 1985 Age: 37 Procedure: Upper GI endoscopy Indications: Abdominal pain in the left upper quadrant Providers: Lele Newman DO Referring MD: Lele Newman DO Medicines: Monitored Anesthesia Care Patient Profile: This is a 37 year old female. Refer to note in patient chart for documentation of history and physical. Patient has symptoms of chronic left upper quadrant abdominal pain. Complications: No immediate complications. Procedure: Pre-Anesthesia Assessment: - Prior to the procedure, a History and Physical was performed, and patient medications and allergies were reviewed. The risks and benefits of the procedure and the sedation options and risks were discussed with the patient. All questions were answered and informed consent was obtained. Patient identification and proposed procedure were verified by the physician in the pre-procedure area. Mental Status Examination: alert and oriented. CV Examination: normal. Prophylactic Antibiotics: The patient does not require prophylactic antibiotics. Prior Anticoagulants: The patient has taken no previous anticoagulant or antiplatelet agents. After reviewing the risks and benefits, the patient was deemed in satisfactory condition to undergo the procedure. The anesthesia plan was to use monitored anesthesia care (MAC). Immediately prior to administration of medications, the patient was re-assessed for adequacy to receive sedatives. The heart rate, respiratory rate, oxygen saturations, blood pressure, adequacy of pulmonary ventilation, and response to care were monitored throughout the procedure. The physical status of the patient was re-assessed after the procedure. After obtaining informed consent, the endoscope was passed under direct vision. Throughout the procedure, the patient's blood pressure, pulse, and oxygen saturations were monitored continuously. The Endoscope was introduced through the mouth, and advanced to the second part of duodenum. The upper GI endoscopy was accomplished without difficulty. The patient tolerated the procedure well. Scope In: 8:10:36 AM Scope Out: 8:13:50 AM Total Procedure Duration Time 0 hours 3 minutes 14 seconds Findings: The examined esophagus was normal. Patchy mildly erythematous mucosa without bleeding was found in the gastric antrum. Biopsies were taken with a cold forceps for histology. Verification of patient identification for the specimen was done. Estimated blood loss was minimal. Patchy mildly erythematous mucosa without active bleeding and with no stigmata of bleeding was found in the second portion of the duodenum. Impression: - Normal esophagus. - Erythematous mucosa in the antrum. Biopsied. - Erythematous duodenopathy. - passage of the endoscope into the third portion of the duodenum secondary to possible mesenteric artery syndrome. -CT scan of the abdomen pelvis with oral and IV contrast Recommendation: - Discharge patient to home. - Resume previous diet. - Continue present medications. Procedure Code(s): --- Professional --- 53047, Esophagogastroduodenoscopy, flexible, transoral; with biopsy, single or multiple CPT copyright 2017 [employer] [place] [employer]. All rights reserved. The codes documented in this report are preliminary and upon physician pediatrician review may be revised to meet current compliance requirements. Lele Newman DO 02/02/2023 8:25:01 AM This report has been signed electronically. Number of Addenda: 0 Note Initiated On: 02/02/2023 7:58 AM
--- NOTE | 2023-02-02 08:26 | OP.CCLET_ITS ---
02/02/2023 Deb Gay MD [address] [place] [address] [place] [address] Re : Upper GI endoscopy procedure for Savanna Silva Dear Dr. Gay This procedure was performed on Thursday, February 02, 2023. My impressions and recommendations are as follows: Impressions : - Normal esophagus. - Erythematous mucosa in the antrum. Biopsied. - Erythematous duodenopathy. - passage of the endoscope into the third portion of the duodenum secondary to possible mesenteric artery syndrome. -CT scan of the abdomen pelvis with oral and IV contrast Recommendations : - Discharge patient to home. - Resume previous diet. - Continue present medications. My findings are described in the full procedure note, which is enclosed. If I can be of further assistance, please feel free to contact me at . Sincerely, Lele Newman, 02/02/2023 8:25:01 AM This report has been signed electronically.
== END 2023-02-02 09:31 | disposition home or self-care (01) ==
LOC: EN 06:58 → AC 06:59
PROVIDERS: Anesthesiology; PCP Internal Medicine; Referring Provider Internal Medicine; Visit Provider Internal Medicine Gastroenterology
PROC: 0DJ08ZZ Inspection of Upper Intestinal Tract, Via Natural or Artificial Opening Endoscopic (ICD-10-PCS; CPT 43235; principal; 2023-02-02 07:55)
DX: K29.50 Unspecified chronic gastritis without bleeding (principal); R10.12 Left upper quadrant pain; K59.09 Other constipation; R11.2 Nausea with vomiting, unspecified
CPT/HCPCS: 43239; 81025; 88305; 88342; J7120; J2405

== ENCOUNTER 2023-02-11 17:09 | Emergency (ER) | payer MEDICAID, SELFPAY ==
[2023-02-11 17:10] VITALS: BP 123/80; PULSE 84; RESP 16; TEMP 36.8; O2SAT 100; BMI 23.7
--- NOTE | 2023-02-11 17:59 | CT_ITS ---
STUDY: CT ABDOMEN AND PELVIS WITH CONTRAST REASON FOR EXAM: Female, 37 years old. luq pain -- IV PO Contrast RADIATION DOSAGE (If Supplied By Facility): CTDIvol = ( 9.65 ) mGy, DLP = ( 443.90 ) mGycm TECHNIQUE: Transaxial images were obtained from the dome of the diaphragm to the symphysis pubis with oral contrast. IV 100mL Isovue-300 was administered. Sagittal and coronal images were reconstructed. Individualized dose optimization techniques were used for this CT. COMPARISON: 04/23/2022. FINDINGS: The visualized lung bases are unremarkable. The visualized portions of the heart are within normal limits. Normal liver. Normal gallbladder and extrahepatic biliary system. Normal spleen. Normal pancreas. Normal bilateral adrenal glands. No acute abnormalities of the kidneys. Stable bilateral multiple small nonobstructing renal stones. Normal visualized stomach. Normal small intestine. Normal colon. There are surgical clips in the region of the appendix consistent with a prior appendectomy. Normal abdominal aorta. Normal inferior vena cava. Normal retroperitoneum. Normal urinary bladder. Normal visualized uterus. Normal abdominal wall. Normal osseous structures. CT/Abdomen/Pelvis WITH Contrast IMPRESSION: Stable nonobstructing renal stones. No other definite acute or significant abnormality seen. Electronically Signed: Jermaine Caldwell MD at 20:24 EDT ,
[2023-02-11 18:24] LABS: Mucous, Urine 0 SEEN /hpf (<or=2+)
[2023-02-11] MEDS: 0.9% Normal Saline 1,000 ML 1000 ML IV (18:31)
[2023-02-11 18:32] LABS: Absolute Lymphocyte Count 2.25 X10^3/uL (0.83-4.51); Absolute Neutrophil Count 3.9 X10^3/uL (2.0-7.7); Basophil# 0.02 X10^3/uL; Basophil% 0.3 % (0-1); Eosinophil# 0.04 X10^3/uL; Eosinophils% 0.6 % (0-5); Hematocrit 42.1 % (37-47); Hemoglobin 13.9 g/dL (12.0-15.0); Lymphocyte # 2.25 X10^3/ul (0.83-4.51); Lymphocyte % 33.9 % (19-41); Mean Corpuscular Hgb 30.9 pg (27.0-32.0); Mean Corpuscular Volume 93.6 fL (81-99); Mean Platelet Vol. 10.6 fl (6.2-12.0); Monocyte# 0.42 X10^3/uL; Monocyte% 6.3 % (0-10); NRBC Flagged by Analyzer 0 % (0-5); Neutrophil # 3.89 X10^3/uL (2.7-7.7); Neutrophil % 58.6 % (47-70); Platelet Count 222 K/mm3 (150-450); RBC Distribution Width CV 11.9 % (11.6-14.6); RBC Distribution Width SD 40.8 fl (35.1-43.9); White Blood Count 6.6 K/mm3 (4.4-11.0)
[2023-02-11 18:33] LABS: Color, Urine Yellow (Yellow); Glucose, Dipstick Normal (Normal); Ketone-Dipstick Negative (Negative); Leukocyte Esterase-Dipstick 100 /ul (Negative); Nitrite-Dipstick Negative (Negative); Occult Blood-Urine 10 /ul (Negative); Protein-Dipstick 15 mg/dl (Negative); Urine Bilirubin Dipstick Negative (Negative); Urine Clarity Cloudy (Clear); Urine Urobilinogen Normal (Normal)
[2023-02-11 18:43] LABS: AST(SGOT) 11 U/L (15-37); Alanine Aminotransfer ALT/SGPT 15 U/L (13-56); Albumin, Serum 4.3 g/dL (3.2-5.0); Alkaline Phosphatase 93 U/L (45-117); Anion Gap 7 (5-15); BUN 17 mg/dL (7-18); BUN/Creat Ratio 22.3 RATIO (10-20); Bilirubin, Direct 0.24 mg/dL (0.00-0.30); Calcium,Total 9.5 mg/dL (8.5-10.1); Chloride 105 mmol/L (98-107); Creatinine, Serum 0.76 mg/dL (0.55-1.02); EST Glomerular Filtration Rate 92 mL/min (>60); Est Glom Filt Rate - Afr Amer 111 mL/min (>60); Estimated Creatinine Clearance 85.47 ml/min; Globulin 3.8 g/dL (2.2-4.2); Glucose 90 mg/dL (74-106); Lipase 36 U/L (13-75); Potassium 3.5 mmol/L (3.5-5.1); Protein, Total 8.1 g/dL (6.4-8.2); Sodium Level 139 mmol/L (136-145)
[2023-02-11 18:49] LABS: Bacteria 2+ /hpf (None Seen); Internal QC Validated? YES +Cl - CLEAR BKGD; Pregnancy, Urine Negative Negative; Red Blood Cells-Urine 0-5 SEEN /hpf (0-5); Squamous Epithelial Cells - UA 5-10 SEEN /hpf (5-10); White Blood Cells 0-5 SEEN /hpf (0-5)
--- NOTE | 2023-02-11 20:38 | ED.VIS.GI ---
HPI HPI - GI History of Present Illness Chief Complaint: Abd Pain Narrative Narrative: 37-year-old female with chronic left upper quadrant pain. She had this for an extended duration. She has history of constipation. She sees Dr. Newman who just did upper endoscopy on her. 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 She states that Dr. Newman wanted to get a CAT scan of the abdomen pelvis with IV and oral contrast however it has not been approved by insurance yet. Patient states that the pain is similar. It radiates from the left upper quadrant into the left lower quadrant. She has nausea. She is constipated. She has not been taking her Linzess every day because she is concerned it is causing crampy pain in her abdomen. She has had some small stools. She describes these as hard balls. No urinary or vaginal complaints. No fevers or chills. PFSH PFS Medical History Abdominal pain Cervical high risk HPV (human papillomavirus) test positive Contact with and (suspected) exposure to other viral communicable diseases Contraceptive management Encounter for screening for COVID-19 Encounter to establish care Gastroenteritis Heartburn History of abnormal cervical Pap smear history of ANANT History of stress test Hx of constipation IBS (irritable bowel syndrome) Knee pain Migraine headache Muscle pain Muscular abdominal pain in left flank Non-smoker Seasonal allergies URI (upper respiratory infection) Wears glasses Home Medications fluticasone propionate 50 mcg/actuation nasal spray,suspension 1 spray intranasal BID PRN Allergy Symptoms 01/22/20 [History Last Taken 04/19/22] etonogestrel 68 mg subdermal implant (Nexplanon) 1 implant subdermal ONCE control 12/09/20 [History Last Taken 08/01/19] cetirizine 10 mg capsule (Zyrtec) 10 mg PO QHS PRN Allergy Symptoms 04/20/22 [History Last Taken 04/17/22] linaclotide 290 mcg capsule (Linzess) 290 mcg PO QAM #90 caps 10/20/22 [Rx Last Taken Unknown] sucralfate 100 mg/mL oral suspension 10 ml PO QACHS PRN dyspepsia #1,000 mL 11/26/22 [Rx Last Taken Unknown] ondansetron HCl 8 mg tablet 8 mg PO Q8H PRN nausea and vomiting #30 tabs 12/13/22 [Rx Last Taken Unknown] colestipol 1 gram tablet 1 g PO DAILY #30 tabs 12/17/22 [Rx Last Taken Unknown] pantoprazole 40 mg tablet,delayed release (Protonix) 40 mg PO BID #180 tabs 12/28/22 [Rx Last Taken Unknown] Allergy/AdvReac Type Severity Reaction Status Date / Time morphine Allergy chest pain Verified 02/02/23 07:13 Family History Father Hypertension High cholesterol Suicide attempt Grandmother Colon cancer Thyroid disorder Diabetes Arthritis Myocardial infarction Hypertension High cholesterol Grandfather Myocardial infarction Hypertension High cholesterol Mother High cholesterol Surgical History History of endoscopy History of knee surgery Hx of colonoscopy S/P laparoscopic appendectomy Social History household members: family Smoking Status: Never smoker second hand exposure: No alcohol intake: current alcohol intake frequency: holidays/special occasions only details: social substance use type: does not use caffeine: Yes what type of physical activity do you participate in: walking, swimming and yoga frequency: daily duration: 15-30 minutes/day seatbelt use: always do you feel safe at home: Yes additional social history: single- babysitting ROS ROS ED Constitutional Constitutional ED: Denies chills or fever(s) ENT ENT ED: Denies rhinorrhea or sore throat Cardiovascular Cardiovascular: Denies chest pain or palpitations Respiratory/Chest Respiratory/Chest: Denies cough or dyspnea Gastrointestinal Gastrointestinal: Reports abdominal pain, constipation and nausea Genitourinary Genitourinary ED: Denies dysuria or hematuria Musculoskeletal Musculoskeletal: Reports back pain; Denies arthralgias Integumentary Denies abscess or Abrasions Neurologic Neurologic: Denies headache(s) Psychiatric Psychiatric: Denies anxiety or depression EXAM Physical Exam Const Vital Signs: 02/11/23 17:10 Temperature 98.3 F Temperature Source Temporal Pulse Rate 84 Respiratory Rate 16 Blood Pressure 123/80 H Blood Pressure Mean 94 Pulse Ox 100 Oxygen Delivery Method Room Air Positive well nourished General Appearance ED: NAD HEENT Reports moist mucous membranes normocephalic Eyes PERRL and EOMs intact bilaterally Resp normal respiratory effort and clear to auscultation bilaterally Cardio regular rate and regular rhythm GI Palpation: tender LLQ and LUQ Back/Spine no CVA tenderness Neuro CN's II-XII intact bilaterally and moves all extremities Sensorium / Orientation: alert Motor Exam: strength 5/5 throughout Psych mental status grossly normal MDM MDM MDM Narrative Medical decision making narrative: She mightPresenting with left-sided abdominal pain. She has had this for a very long time. She just had an endoscopy with Dr. Newman. Have a narrowing. Per the medical record it looks like she might have duodenal stenosis. She states that Dr. Newman wanted to get a CT scan of the abdomen pelvis with IV and p.o. contrast however she states the insurance company does not see an order for this. Given her pain she came to the ER for evaluation. She is tender in the left upper quadrant and left lower quadrant. She has some pain in the left flank as well. She did declines analgesia. She wants to get a CT scan performed. Differential includes colitis, constipation, diverticulitis, UTI, pyelonephritis. CBC to assess white blood cell count, hemoglobin, platelets. CMP to assess liver function, renal function, electrolytes. Urinalysis to assess for UTI. hCG to assess for . Lab work-up ultimately unremarkable. CT of the abdomen pelvis with IV and p.o. contrast was obtained and is negative for acute findings. Patient counseled on this. I recommend she follow-up with Dr. Newman for any ongoing GI issues. She acknowledged understanding of this. Impression: 1. Chronic abdominal 2. Constipation 3. Nausea Lab Data Labs: Laboratory Results - last 24 hr 02/11/23 02/11/23 18:15 18:20 WBC 6.6 RBC 4.50 Hgb 13.9 Hct 42.1 MCV 93.6 MCH 30.9 MCHC 33.0 RDW Std Deviation 40.8 RDW Coeff of Ruthy 11.9 Plt Count 222 MPV 10.6 Immature Gran % (Auto) 0.300 Neut % (Auto) 58.6 Lymph % (Auto) 33.9 Osborne % (Auto) 6.3 Eos % (Auto) 0.6 Baso % (Auto) 0.3 Absolute Neuts (auto) 3.9 Absolute Lymphs (auto) 2.25 Nucleated RBC % 0 Sodium 139 Potassium 3.5 Chloride 105 Carbon Dioxide 27.0 Anion Gap 7 BUN 17 Creatinine 0.76 Estim Creat Clear Calc 85.47 Est GFR (MDRD) Af Amer 111 Est GFR (MDRD) Non-Af 92 BUN/Creatinine Ratio 22.3 H Glucose 90 Calcium 9.5 Total Bilirubin 0.80 Direct Bilirubin 0.24 AST 11 L ALT 15 Alkaline Phosphatase 93 Total Protein 8.1 Albumin 4.3 Globulin 3.8 Lipase 36 Urine Color Yellow Urine Clarity Cloudy Urine pH 6.0 Ur Specific [place] 1.020 Urine Protein 15 H Urine Glucose (UA) Normal Urine Ketones Negative Urine Occult Blood 10 H Urine Nitrite Negative Urine Bilirubin Negative Urine Urobilinogen Normal Ur Leukocyte Esterase 100 H Urine RBC 0-5 SEEN Urine WBC 0-5 SEEN Ur Squamous Epith Cells 5-10 SEEN Urine Bacteria 2+ Urine Mucus 0 SEEN Urine Test Negative Radiography Diagnostic Testing: Clinical Impression(s) from Imaging Studies Abdomen/Pelvis CT 02/11/23 17:59 IMPRESSION: Stable nonobstructing renal stones. No other definite acute or significant abnormality seen. Electronically Signed: Jermaine Caldwell MD at 20:24 EDT , Discharge Plan Triage Chief Complaint: Abd Pain ED Provider: César Pierson Dx/Rx/DC Orders Clinical Impression: LUQ abdominal pain Instructions: ED Abdominal Pain Unkn Cause Fem Prescriptions: No Action Nexplanon 68 mg implant 1 implant subdermal ONCE Rx Instructions: as a single dose fluticasone propionate 50 mcg/actuation spray,suspension 1 spray INTRANASAL BID PRN (Reason: Allergy Symptoms) Rx Instructions: administer into each nostril ondansetron HCl 8 mg tablet 8 mg PO Q8H PRN (Reason: nausea and vomiting) Qty: 30 1RF Zyrtec 10 mg Capsule 10 mg PO QHS PRN (Reason: Allergy Symptoms) Linzess 290 mcg capsule 290 mcg PO QAM Qty: 90 3RF sucralfate 100 mg/mL suspension 10 ml PO QACHS PRN (Reason: dyspepsia) Qty: 1000 1RF colestipol 1 gram tablet 1 g PO DAILY Qty: 30 3RF pantoprazole [Protonix] 40 mg tablet,delayed release (DR/EC) 40 mg PO BID Qty: 180 1RF Primary Care Provider: Deb Gay Referrals: Deb Gay MD [Primary Care Provider] - Lele Newman DO [Med Staff - Active Staff] - 3-5 Days Disposition Disposition: Home, Self Care Discharge Date/Time: 02/11/23 20:54
== END 2023-02-11 20:54 | disposition home or self-care (01) ==
PROVIDERS: Emergency Provider Student in an Organized Health Care Education/Training Program; PCP Internal Medicine; Visit Provider Student in an Organized Health Care Education/Training Program
DX: R10.12 Left upper quadrant pain (principal); K59.00 Constipation, unspecified; G89.29 Other chronic pain; R11.0 Nausea; Z79.3 Long term (current) use of hormonal contraceptives; Z79.899 Other long term (current) drug therapy; K58.9 Irritable bowel syndrome, unspecified; K21.9 Gastro-esophageal reflux disease without esophagitis; Z90.49 Acquired absence of other specified parts of digestive tract
CPT/HCPCS: 74177; 80048; 80076; 81001; 81025; 83690; 85025; 96360; 96361; 99282; J7030; Q9967

== ENCOUNTER → 2023-02-16 | Outpatient (CLI) | payer MEDICAID, SELFPAY | END | disposition home or self-care (01) | PROVIDERS: PCP Internal Medicine; Referring Provider Obstetrics & Gynecology; Visit Provider Obstetrics & Gynecology | DX: R10.2 Pelvic and perineal pain (principal) | CPT/HCPCS: 87086 ==

== ENCOUNTER → 2023-02-23 | Outpatient (CLI) | payer MEDICAID, SELFPAY ==
--- NOTE | 2023-02-23 08:15 | RAD_ITS ---
PROCEDURE: Upper GI with Small Bowel Follow Through DATE OF EXAMINATION: February 23, 2023. INDICATION: Female, 37 years old. Left-sided abdominal pain with constipation and diarrhea. FLUOROSCOPY TIME (if supplied): (1:29) minutes/seconds. 43.88 mGy. 90 fluoroscopic images were obtained. TECHNIQUE: Radiographic and fluoroscopic images of the distal esophagus, stomach, and entire small intestine were obtained following the oral ingestion of barium. COMPARISON: None. FINDINGS: The commercial drafter film of the abdomen demonstrates a normal bowel gas pattern. There are no abnormal calcifications or organomegaly demonstrated. The visualized osseous structures are normal. There is evidence of a small hiatal hernia with gastroesophageal reflux. The remainder of the stomach and duodenum are unremarkable. A single contrast small bowel follow through exam demonstrates the small bowel to have no evidence for stricture, ulceration or mass. The transit time is normal at 30. RAD/Upper GI/w Small Bowel IMPRESSION: Small hiatal hernia with gastroesophageal reflux. Electronically Signed: Marcello Mascorro MD at 14:44 EDT ,
== END | disposition home or self-care (01) ==
LOC: RAD 07:57
PROVIDERS: PCP Internal Medicine; Referring Provider Internal Medicine Gastroenterology; Visit Provider Internal Medicine Gastroenterology
DX: K31.5 Obstruction of duodenum (principal)
CPT/HCPCS: 74246; 74248

== ENCOUNTER 2023-03-10 12:31 | Day surgery (SDC) | payer MEDICAID, SELFPAY ==
[2023-03-10 12:59] LABS: Internal QC Validated? YES +Cl - CLEAR BKGD; Pregnancy, Urine Negative Negative
[2023-03-10 13:09] VITALS: BP 112/70; PULSE 70; RESP 16; TEMP 36.9; O2SAT 100; BMI 23.4
[2023-03-10] MEDS: Lactated Ringers 1,000 ML 15 ML IV ×2 (13:14→15:52)
--- NOTE | 2023-03-10 14:55 | DCINST_ITS ---
Discharge Instructions Diet Discharge Diet: No restrictions Activity Discharge Activity: Return to Normal Activity Dressing / Incision Call your doctor if you observe: Fever of 101 or Higher, Inability to urinate and Inability to have a bowel movement Follow Up Care Please Follow Up With: Isabell Newman MD When: the office will call her to make follow up arrangements Test Results: Test results from this visit will be discussed in further detail at your follow- up appointment, if applicable. Discharge Plan Admission Attending Provider: Isabell Newman Primary Care Provider: Deb Gya Discharge Orders/Prescriptions Prescriptions: New oxycodone-acetaminophen [Percocet] 5-325 mg tablet 1 tab PO Q8H PRN (Reason: pain) 3 Days Qty: 10 0RF cephalexin [cephalexin] 500 mg capsule 500 mg PO Q12 3 Days Qty: 6 0RF phenazopyridine [Pyridium] 200 mg tablet 200 mg PO TID PRN PRN (Reason: Bladder Spasms) 7 Days Qty: 30 0RF Continued fluticasone propionate 50 mcg/actuation spray,suspension 1 spray INTRANASAL BID PRN (Reason: Allergy Symptoms) Rx Instructions: administer into each nostril ondansetron HCl 8 mg tablet 8 mg PO Q8H PRN (Reason: nausea and vomiting) Qty: 30 1RF Zyrtec 10 mg Capsule 10 mg PO QHS PRN (Reason: Allergy Symptoms) polyethylene glycol 3350 [ClearLax] 17 gram/dose powder 17 g PO DAILY Linzess 290 mcg capsule 290 mcg PO QAM Qty: 90 3RF sucralfate 100 mg/mL suspension 10 ml PO QACHS PRN (Reason: dyspepsia) Qty: 1000 1RF pantoprazole [Protonix] 40 mg tablet,delayed release (DR/EC) 40 mg PO BID Qty: 180 1RF Referrals / Follow Up: Deb Gay MD [Primary Care Provider] - Disposition Disposition (needs filled in before D/C Order can be placed): Home, Self Care
[2023-03-10] MEDS: Cefazolin 2 GM in 0.9% Normal Saline 100 ML IV (14:59)
--- NOTE | 2023-03-10 15:39 | OP.PCM_ITS ---
Report of Operation Date of Procedure: 03/10/23 Pre-Operative Diagnosis: Bilateral renal calculi Post-Operative Diagnosis: Same Surgery/Procedure Performed:: Cystoscopy, right ureteroscopy, stone basket extraction, right ureteral stent, left ureteral stent Surgeon: Isabell Newman Type of Anesthesia: General Specimen's removed: Right renal stone Description of Procedure: The patient is a 37-year-old female who presented to the office with bilateral flank pain and findings of stones on CT scan. She presents for surgical intervention, informed consent was obtained. The patient was taken to the operating room and placed on the operating room table. Anesthesia monitored the head, neck, airway, IV access and vital signs throughout the case. Once anesthesia was appropriately administered, the patient was placed into dorsolithotomy position was prepped and draped in usual sterile fashion. The cystoscope was inserted through the urethra under direct visualization into the urinary bladder. 2 separate 0.035 Glidewire's were passed through the left ureteral orifice into the renal pelvis is seen on fluoroscopic visualization. Several attempts were made on passage of the flexible ureteroscope over one of the wires, and this was unsuccessful. A 6 [place] 26 cm JJ stent was then placed over one of the wires with good positioning in the renal pelvis as well as the urinary bladder. This process was repeated on the right side with a safety wire and the ureteroscope over a Glidewire. Access was obtained to the renal pelvis without difficulty. The stone was identified in the midpole. It was grasped with a stone basket and removed without difficulty and sent for analysis. Using the safety wire, a 4.5 x 26 cm JJ stent was placed with good positioning in the renal pelvis as well as the urinary bladder. The patient's bladder was then emptied and the case was terminated. She was awakened and taken to the recovery room in good condition. There were no complications during this procedure. Grafts/Implants Used: 4.5 x 26 cm JJ stent on the right and 6 by 26 cm JJ stent on the left Complications None Admit VTE Documentation VTE Present on Admission: Yes VTE Mechan Device Prophylaxis: SCD's VTE Pharm Prophylaxis ordered?: No Reason prophylaxis not ordered:: Treatment Not Indicated
[2023-03-10 15:45] VITALS: BP 112/70; BP 112/83; PULSE 86; RESP 16; TEMP 37.3; O2SAT 99
[2023-03-10 16:00] VITALS: BP 112/70; BP 113/77; PULSE 69; RESP 16; O2SAT 100
[2023-03-10 16:16] VITALS: BP 112/70; BP 112/73; PULSE 79; RESP 16; TEMP 36.6; O2SAT 99
[2023-03-10 16:40] VITALS: BP 112/70
[2023-03-10 17:17] VITALS: BP 112/70; BP 115/64; PULSE 65; RESP 16; TEMP 36.9; O2SAT 100
[2023-03-18 16:24] LABS: Source Right Kidney
== END 2023-03-10 17:22 | disposition home or self-care (01) ==
PROVIDERS: Anesthesiology; PCP Internal Medicine; Referring Provider Urology; Visit Provider Urology
PROC: 0TJ98ZZ Inspection of Ureter, Via Natural or Artificial Opening Endoscopic (ICD-10-PCS; CPT 52352; principal; 2023-03-10 13:55)
DX: N20.0 Calculus of kidney (principal); N39.46 Mixed incontinence; K59.00 Constipation, unspecified; K21.9 Gastro-esophageal reflux disease without esophagitis
CPT/HCPCS: 52352; 00918; 76000; 81025; 82360; J7120; C2617; J2405

== ENCOUNTER → 2023-03-15 | Outpatient (CLI) | payer MEDICAID, SELFPAY ==
[2023-03-15 16:23] LABS: Mucous, Urine 0 SEEN /hpf (<or=2+)
[2023-03-15 18:11] LABS: Color, Urine Red (Yellow); Glucose, Dipstick Normal (Normal); Ketone-Dipstick Negative (Negative); Leukocyte Esterase-Dipstick Negative /ul (Negative); Nitrite-Dipstick Positive (Negative); Occult Blood-Urine 250 /ul (Negative); Protein-Dipstick 500 mg/dl (Negative); Specific Gravity, Urine 1.025 (1.002-1.030); Urine Clarity Turbid (Clear); Urine Urobilinogen 12 mg/dl (Normal); Urine pH 6.5 (5.0 - 8.0)
[2023-03-15 18:22] LABS: Urine Bilirubin Dipstick 6 mg/dL (Negative)
[2023-03-15 18:47] LABS: Red Blood Cells-Urine > 100 SEEN /hpf (0-5); White Blood Cells 5-10 SEEN /hpf (0-5)
[2023-03-15 18:48] LABS: Bacteria 1+ /hpf (None Seen); Squamous Epithelial Cells - UA 0-5 SEEN /hpf (5-10)
== END | disposition home or self-care (01) ==
PROVIDERS: PCP Internal Medicine; Visit Provider Physician Assistant
DX: R30.0 Dysuria (principal)
CPT/HCPCS: 81001; 87086

== ENCOUNTER 2023-03-31 08:14 | Day surgery (SDC) | payer MEDICAID, SELFPAY ==
[2023-03-31 08:46] VITALS: BP 100/63; PULSE 77; RESP 16; TEMP 36.9; O2SAT 99; BMI 22.6
[2023-03-31] MEDS: Lactated Ringers 1,000 ML 15 ML IV (08:56)
[2023-03-31 09:04] LABS: Internal QC Validated? YES +Cl - CLEAR BKGD; Pregnancy, Urine Negative Negative
--- NOTE | 2023-03-31 10:06 | EX.PCM.DISCH ---
Discharge Instructions Diet Discharge Diet: No restrictions Activity Discharge Activity: Return to Normal Activity Dressing / Incision Call your doctor if you observe: Fever of 101 or Higher, Inability to urinate and Inability to have a bowel movement Follow Up Care Please Follow Up With: Isabell Newman MD When: The office will call the patient to make arrangements for follow-up Test Results: Test results from this visit will be discussed in further detail at your follow-up appointment, if applicable. Discharge Plan Admission Attending Provider: Isabell Newman Primary Care Provider: Deb Gay Discharge Orders/Prescriptions Prescriptions: New oxycodone-acetaminophen [Percocet] 5-325 mg tablet 1 tab PO Q8H PRN (Reason: pain) 2 Days Qty: 6 0RF cephalexin [cephalexin] 500 mg capsule 500 mg PO Q12 3 Days Qty: 6 0RF Continued fluticasone propionate 50 mcg/actuation spray,suspension 1 spray INTRANASAL BID PRN (Reason: Allergy Symptoms) Rx Instructions: administer into each nostril Zyrtec 10 mg Capsule 10 mg PO QHS PRN (Reason: Allergy Symptoms) polyethylene glycol 3350 [ClearLax] 17 gram/dose powder 17 g PO DAILY phenazopyridine [Pyridium] 200 mg tablet 200 mg PO TID PRN PRN (Reason: Bladder Spasms) 7 Days Qty: 30 0RF Linzess 290 mcg capsule 290 mcg PO QAM Qty: 90 3RF sucralfate 100 mg/mL suspension 10 ml PO QACHS PRN (Reason: dyspepsia) Qty: 1000 1RF pantoprazole [Protonix] 40 mg tablet,delayed release (DR/EC) 40 mg PO BID Qty: 180 1RF ondansetron HCl 8 mg tablet 8 mg PO Q8H PRN (Reason: nausea and vomiting) Qty: 30 1RF Referrals / Follow Up: Deb Gay MD [Primary Care Provider] - Disposition Disposition (needs filled in before D/C Order can be placed): Home, Self Care
--- NOTE | 2023-03-31 10:07 | PCM.OPRPT ---
Problems Associated Problem List Diagnoses (1) Renal stone: Report of Operation Date of Procedure: 03/31/23 Pre-Operative Diagnosis: Bilateral renal calculi Post-Operative Diagnosis: Same Surgery/Procedure Performed:: Cystoscopy, removal of right ureteral stent, left ureteroscopy, stone basket extraction, left ureteral stent removal Surgeon: Isabell Newman Type of Anesthesia: General Specimen's removed: Left renal calculus Description of Procedure: The patient is a 37-year-old female with bilateral renal stones. She was under anesthesia 2 weeks ago for removal of the right side and ureteroscopy was unable to be performed at that time. She now presents for removal of the right-sided stent, left ureteroscopy with removal of left renal stone. Informed consent was obtained. The patient was taken to the operating room and placed on the operating room table. Anesthesia monitored the head, neck, airway, IV access and vital signs throughout the case. Once anesthesia was appropriately administered, the patient was placed into dorsolithotomy position was prepped and draped in usual sterile fashion. At this time the cystoscope was inserted through the urethra under direct visualization into the urinary bladder. The right ureteral stent was observed and removed without difficulty using a grasper. 2 separate 0.035 Glidewire's were inserted alongside the left ureteral stent which was then removed without difficulty. Over one of the glide wires the flexible ureteroscope was inserted into the ureter and easily advanced into the renal pelvis. The entire renal pelvis was visualized directly and 1 stone was identified in the midpole. This was the only stone seen. Using the basket, the stone was grasped and removed without difficulty. On removal of the ureteroscope, no ureteral injury was observed. There was no difficulty secondary to the indwelling left ureteral stent. At this time the patient's Glidewire was removed. She was awakened and taken to the recovery room in good condition. There were no complications during this procedure. Grafts/Implants Used: None Complications None Admit VTE Documentation VTE Present on Admission: Yes VTE Mechan Device Prophylaxis: SCD's VTE Pharm Prophylaxis ordered?: No Reason prophylaxis not ordered:: Treatment Not Indicated
[2023-03-31] MEDS: Cefazolin 2 GM in 0.9% Normal Saline 100 ML IV (10:14)
[2023-03-31 10:50] VITALS: BP 100/63; BP 102/69; PULSE 77; RESP 16; TEMP 36.5; O2SAT 100
[2023-03-31 11:00] VITALS: BP 100/63; BP 95/56; PULSE 73; RESP 18; O2SAT 95
[2023-03-31 11:11] VITALS: BP 100/63; BP 96/67; PULSE 70; RESP 18; TEMP 36.6; O2SAT 100
[2023-03-31 12:31] VITALS: BP 100/63; BP 105/60; PULSE 75; RESP 18; TEMP 36.1; O2SAT 100
[2023-04-09 18:24] LABS: Source LEFT KIDNEY
== END 2023-03-31 13:02 | disposition home or self-care (01) ==
LOC: SDC 08:14 → AC 08:15
PROVIDERS: Anesthesiology; PCP Internal Medicine; Referring Provider Urology; Visit Provider Urology
PROC: 0TJ98ZZ Inspection of Ureter, Via Natural or Artificial Opening Endoscopic (ICD-10-PCS; CPT 52352; principal; 2023-03-31 09:40)
DX: N20.0 Calculus of kidney (principal); N39.46 Mixed incontinence; K59.00 Constipation, unspecified
CPT/HCPCS: 52352; 52332; 00918; 76000; 81025; 82360; J7120; J2405

== ENCOUNTER → 2023-06-18 | Outpatient (CLI) | payer MEDICAID, SELFPAY ==
--- NOTE | 2023-06-18 07:49 | US_ITS ---
STUDY: SUPERFICIAL ULTRASOUND - LEFT GROIN REASON FOR EXAM: Female, 38 years old. left groin mass/ lump TECHNIQUE: A superficial ultrasound was performed with real-time and static [place]-scale imaging. COMPARISON: None. FINDINGS: Multiple longitudinal and transverse ultrasound images of the left ankle area confirm a superficial 2 x 8 mm hypoechoic mass with central increased echogenicity consistent with a normal inguinal lymph node. US/Other Unlisted US Procedure IMPRESSION: Ultrasound confirms a small superficial inguinal lymph node. Electronically Signed: Flavio Mcbride MD at 23:39 EST ,
== END | disposition home or self-care (01) ==
LOC: US 07:44
PROVIDERS: PCP Internal Medicine; Referring Provider Surgery; Visit Provider Surgery
DX: R19.09 Other intra-abdominal and pelvic swelling, mass and lump (principal)
CPT/HCPCS: 76999

== ENCOUNTER → 2023-10-14 | Outpatient (CLI) | payer MEDICAID, SELFPAY ==
--- NOTE | 2023-10-14 09:20 | NM_ITS ---
CLINICAL: 38-year-old female with history of left upper quadrant abdominal pain, bloating and chronic nausea. SEMI-SOLID PHASE 99m Tc SULFUR COLLOID GASTRIC EMPTYING STUDY COMPARISON: None available FINDINGS: The patient was administered 1.1 mCi of 99m Tc sulfur colloid mixed with oatmeal and consumed per os. Image acquisitions in the anterior-posterior projections were obtained for 66 minutes. There is prompt visualization of the stomach. There is no gastroesophageal reflux identified. The T ? raw data emptying was calculated to be 46.89 minutes, (Normal: 12-56 minutes). NM/Gastric Emptying Study IMPRESSION: 1. NORMAL 99m Tc sulfur colloid semi-solid phase (oatmeal) gastric emptying imaging examination. A. There is normal and preserved semi-solid phase gastric emptying compared to normal controls. (Jerry et al, J Nucl Med Tech 38: 186, 2010). Electronically Signed: Flavio Felipe DO at 11:35 EDT ,
--- OUTSIDE RECORDS SUMMARY | 2023-10-14 09:36 | XMS RPT_ITS | CCD ---
Author Name Unknown Address [facility] [address] [place] [address] Organization [facility] Care Team Providers Care Horse Trainer Name Role Phone Leah ORR, Gayle Liang Unavailable [phone] Aleksandra Alanis Unavailable Unavailable Moe ORR, Elly Primary Care Provider [phone] Moe ORR, Elly Primary Care Provider [phone] Moe ORR, Elly Primary Care Provider Deb Gay Primary Care Provider [phone] JUNAID DC Referring Unavailable ALOK, DAVON P Attending Unavailable GANTA, ELLY Primary Care Unavailable GANTA, ELLY Primary Care Unavailable GANTA, ELLY Primary Care Unavailable ALOK, DAVON P Attending Unavailable GANTA, ELLY Primary Care Unavailable ALOK, DAVON P Attending Unavailable ALOK, DAVON P Referring Unavailable GANTA, ELLY Primary Care Unavailable JUNAID DC Referring Unavailable [facility] Primary Care Unavailable [facility] Primary Care Unavailable Allergies Allergy Classification Reported Allergen(s) Allergy Type Date of Onset Reaction(s) Facility (3 sources) morphine Drug Allergy 7 [facility] (16 sources) Morphine; Translations: [MORPHINE] Drug Allergy 1 Other: See Comments [facility] Medications Current Medications Medication Drug Class(es) Dates Sig (Normalized) Sig (Original) acetaminophen 500 mg oral tablet (1 source) Start: 07-18-2022 End: 07-25-2022 take 1 tablet by mouth every six hours as needed acetaminophen (TYLENOL EXTRA STRENGTH) 500 mg tablet Take 1 tablet by mouth every 6 hours as needed for pain for up to 7 days. 28 tablet 0 07/18/2022 07/25/2022 Active Completed/Discontinued Medications Medication Drug Class(es) Dates Sig (Normalized) Sig (Original) [id number] 200 actuat albuterol 0.09 mg/actuat metered dose inhaler (7 sources) beta2-Adrenergic Agonist Start: 04-23-2021 End: 04-30-2022 take 2 puff(s) by inhalation every six hours as needed albuterol HFA (PROAIR HFA) 90 mcg/actuation inhaler Inhale 2 Puffs as instructed every 6 hours as needed. 8 g 0 04/23/2021 04/30/2022 Discontinued (Course of therapy completed) Problems Active Problems Problem Classification Problem Date Documented Da te Episodic/Chronic Abdominal pain (1 source) Right lower quadrant pain; Translations: [Right lower quadrant pain] Episodic Lymphadenitis (2 sources) Lymphadenopathy; Translations: [Enlarged lymph nodes, unspecified] Onset: 09-15-2023 09-15-2023 Episodic Nausea and vomiting (1 source) Nausea and vomiting; Translations: [Nausea with vomiting, unspecified] Episodic Other gastrointestinal disorders (15 sources) Irritable bowel syndrome; Translations: [Irritable bowel syndrome without diarrhea] Onset: 12-13-2014 12-13-2014 Chronic Other gastrointestinal disorders (3 sources) Groin mass; Translations: [Other intra-abdominal and pelvic swelling, mass and lump] 06-04-2023 Episodic Other injuries and conditions due to external causes (1 source) Injury of ribs; Translations: [Unspecified injury of thorax, initial encounter] 06-28-2023 Episodic Other injuries and conditions due to external causes (1 source) Unspecified injury of thorax, initial encounter; Translations: [Rib injury] Onset: 06-28-2023 Episodic Other non-traumatic joint disorders (1 source) Pain of left wrist; Translations: [Pain in left wrist] 06-28-2023 Episodic Other non-traumatic joint disorders (1 source) Pain in left wrist; Translations: [Left wrist pain] Onset: 06-28-2023 Episodic Other upper respiratory infections (3 sources) Acute upper respiratory infection; Translations: [Acute upper respiratory infection, unspecified] Episodic Unclassified (1 source) Gynecologic examination ; Translations: [Encounter for gynecological examination (general) (routine) without abnormal findings] Onset: 05-10-2017 05-10-2017 Urinary tract infections (1 source) Acute cystitis; Translations: [Acute cystitis without hematuria] Episodic Past or Other Problems Problem Classification Problem Date Documented Da te Episodic/Chronic Other gastrointestinal disorders (1 source) Other intra-abdominal and pelvic swelling, mass and lump; Translations: [Groin mass] Onset: 06-10-2023 Episodic Other screening for suspected conditions (not mental disorders or infectious disease) (3 sources) Abnormal cytology findings; Translations: [Other abnormal findings in specimens from female genital organs] Onset: 05-10-2017 05-10-2017 Episodic Residual codes; unclassified (15 sources) FH: Congenital heart disease; Translations: [Family history of other congenital malformations, deformations and chromosomal abnormalities] Onset: 02-19-2016 07-28-2021 Episodic Results Test Name Value Interpretation Reference Range Facil ity Vital Signs Date Time Vital Sign Value Performing Clinician Frances weber 06-28-2023 09:50-0500 Body temperature 98.2 [degF] Junaid Athy PA-C Work Phone: [facility] 06-28-2023 09:50-0500 Body weight 59.42 kg Junaid Athy PA-C Work Phone: [facility] 06-28-2023 09:50-0500 Diastolic blood pressure 72 mm[Hg] Junaid Athy PA-C Work Phone: [facility] 06-28-2023 09:50-0500 Heart rate 80 /min Junaid Athy PA-C Work Phone: [facility] 06-28-2023 09:50-0500 Respiratory rate 18 /min Junaid Athy PA-C Work Phone: [facility] 06-28-2023 09:50-0500 SaO2% (BldA) [Mass fraction] 100 % Junaid Athy PA-C Work Phone: [facility] 06-28-2023 09:50-0500 Systolic blood pressure 110 mm[Hg] Junaid Athy PA-C Work Phone: [facility] 06-10-2023 09:01-0500 Body height 162.6 cm Davon Carpenter MD Work Phone: [facility] 06-10-2023 09:01-0500 Body temperature 98.2 [degF] Davon Carpenter MD Work Phone: [facility] 06-10-2023 09:01-0500 Body weight 59.69 kg Davon Carpenter MD Work Phone: [facility] 06-10-2023 09:01-0500 Diastolic blood pressure 76 mm[Hg] Davon Carpenter MD Work Phone: [facility] 06-10-2023 09:01-0500 Heart rate 86 /min Davon Carpenter MD Work Phone: [facility] 06-10-2023 09:01-0500 SaO2% (BldA) [Mass fraction] 99 % Davon Carpenter MD Work Phone: [facility] 06-10-2023 09:01-0500 Systolic blood pressure 118 mm[Hg] Davon Carpenter MD Work Phone: [facility] 06-04-2023 15:37-0400 Body temperature 99.1 [degF] Junaid Athy PA-C Work Phone: [facility] 06-04-2023 15:37-0400 Body weight 58.24 kg Junaid Athy PA-C Work Phone: [facility] 06-04-2023 15:37-0400 Diastolic blood pressure 78 mm[Hg] Junaid Athy PA-C Work Phone: [facility] 06-04-2023 15:37-0400 Heart rate 95 /min Junaid Athy PA-C Work Phone: [facility] 06-04-2023 15:37-0400 Respiratory rate 18 /min Junaid Athy PA-C Work Phone: [facility] 06-04-2023 15:37-0400 SaO2% (BldA) [Mass fraction] 98 % Junaid Athy PA-C Work Phone: [facility] 06-04-2023 15:37-0400 Systolic blood pressure 110 mm[Hg] Junaid Athy PA-C Work Phone: [facility] 11-06-2022 12:20-0400 Body temperature 98.2 [degF] Junaid Athy PA-C Work Phone: [facility] 11-06-2022 12:20-0400 Body weight 62.69 kg Junaid Athy PA-C Work Phone: [facility] 11-06-2022 12:20-0400 Diastolic blood pressure 70 mm[Hg] Junaid Athy PA-C Work Phone: [facility] 11-06-2022 12:20-0400 Heart rate 82 /min Junaid Athy PA-C Work Phone: [facility] 11-06-2022 12:20-0400 Respiratory rate 16 /min Junaid Athy PA-C Work Phone: [facility] 11-06-2022 12:20-0400 SaO2% (BldA) [Mass fraction] 98 % Junaid Athy PA-C Work Phone: [facility] 11-06-2022 12:20-0400 Systolic blood pressure 122 mm[Hg] Junaid Athy PA-C Work Phone: [facility] 07-18-2022 14:24-0500 Body temperature 99.19 [degF] Kathia Moore APRN.DEVELOPMENT DIRECTOR Work Phone: [facility] 07-18-2022 14:24-0500 Body weight 65.77 kg Kathia Moore APRN.DEVELOPMENT DIRECTOR Work Phone: [facility] 07-18-2022 14:24-0500 Heart rate 114 /min Kathia Moore APRN.DEVELOPMENT DIRECTOR Work Phone: [facility] 07-18-2022 14:24-0500 Respiratory rate 18 /min Kathia Moore APRN.DEVELOPMENT DIRECTOR Work Phone: [facility] 07-18-2022 14:24-0500 SaO2% (BldA) [Mass fraction] 97 % Kathia Moore BUSINESS INTELLIGENCE DIRECTOR.DEVELOPMENT DIRECTOR Work Phone: [facility] 04-30-2022 07:23-0400 Body weight 63.96 kg Veronica Roachhokaruna BUSINESS INTELLIGENCE DIRECTOR.DEVELOPMENT DIRECTOR Work Phone: [facility] 04-30-2022 07:23-0400 Diastolic blood pressure 76 mm[Hg] Veronica Tannhof BUSINESS INTELLIGENCE DIRECTOR.DEVELOPMENT DIRECTOR Work Phone: [facility] 04-30-2022 07:23-0400 Heart rate 103 /min Veronica Tannhof BUSINESS INTELLIGENCE DIRECTOR.DEVELOPMENT DIRECTOR Work Phone: [facility] 04-30-2022 07:23-0400 Respiratory rate 16 /min Veronica Roachhof BUSINESS INTELLIGENCE DIRECTOR.DEVELOPMENT DIRECTOR Work Phone: [facility] 04-30-2022 07:23-0400 SaO2% (BldA) [Mass fraction] 97 % Veronica Roachhof BUSINESS INTELLIGENCE DIRECTOR.DEVELOPMENT DIRECTOR Work Phone: [facility] 04-30-2022 07:23-0400 Systolic blood pressure 106 mm[Hg] Veronica Roachhof BUSINESS INTELLIGENCE DIRECTOR.DEVELOPMENT DIRECTOR Work Phone: [facility] 05-10-2017 15:05-0400 BMI (Body Mass Index) 22.28 kg/m2 Gayle Lynn MD [facility] 05-10-2017 15:05-0400 Body Temperature 98.4 [degF] Gayle Lynn MD [facility] 05-10-2017 15:05-0400 BP Diastolic 64 mm[Hg] Gayle Lynn MD [facility] 05-10-2017 15:05-0400 BP Systolic 101 mm[Hg] Gayle Lynn MD [facility] 05-10-2017 15:05-0400 Height 160.02 cm Gayle Lynn MD [facility] 05-10-2017 15:05-0400 Pulse (Heart Rate) 86 /min Gayle Lynn MD [facility] 05-10-2017 15:05-0400 Respiratory Rate 16 /min Gayle Lynn MD [facility] 05-10-2017 15:05-0400 Weight 57.06 kg Gayle Lynn MD [facility] Encounters Encounter Date Encounter Type Care Provider Facility Start: 09-15-2023 End: 09-16-2023 ambulatory DAVON CARPENTER Facility:[facility] Start: 09-15-2023 End: 09-15-2023 Patient encounter procedure Davon Carpenter MD Work Phone: General Surgery Procedures Date Procedure Procedure Detail Performing Clinician Start: 11-06-2022 STREP A MOLECULAR (POC) [facility] Provider Start: 04-30-2022 Urnls dip stick/tablet rgnt auto w/o microscopy Veronica Edward APRNPaulinoDEVELOPMENT DIRECTOR Work Phone: Start: 05-10-2017 End: 05-10-2017 Documentation of current medications Gayle Lynn MD Start: 05-10-2017 Gynecologic examination Annual gynecological examination Gayle Lynn MD Plan of Treatment Date Care Activity Detail Author Start: 05-29-2032 Urine microalbumin profile DTaP,Tdap,Td Vaccine (10 - Td or Tdap) [facility] Start: 07-28-2026 Urine microalbumin profile DTAP,TDAP,TD (9 - Td or Tdap) [facility] Start: 12-09-2025 HPV TESTING HPV TESTING [facility] Start: 12-09-2025 PAP TESTING PAP TESTING [facility] Start: 12-09-2025 Screening for malignant neoplasm of cervix [facility] Start: 08-01-2023 Depression Assessment Depression Assessment [facility] Start: 04-01-2023 Covid-19 Vaccine ( season) Covid-19 Vaccine () [facility] Start: 04-01-2023 Influenza vaccination Influ[facility] Vaccine (#1) [facility] Start: 11-06-2022 End: 11-20-2022 Influenza virus A and B RNA and SARS-CoV-2 (COVID-19) N gene panel - Respiratory specimen by KENDAL with probe detection COVID WITH FLUA+B, ROUTINE Microbiology Routine Viral URI with cough Expected: 11/06/2022, Expires: 11/20/2022 [facility] Work Phone: Immunizations Immunization Date Immunization Notes Care Provider Jennifer de 05-29-2022 influenza virus vaccine, unspecified formulation Junaid Dc PA-C Work Phone: [facility] 06-06-2021 influenza, injectabl e, quadrivalent, contains preservative Sandra Batista BUSINESS INTELLIGENCE DIRECTOR.DEVELOPMENT DIRECTOR Work Phone: [facility] 12-31-2020 COVID-19 vaccine, fu ll dose (MODERNA) Sandra Batista BUSINESS INTELLIGENCE DIRECTOR.DEVELOPMENT DIRECTOR Work Phone: [facility] 12-03-2020 COVID-19 vaccine, fu ll dose (MODERNA) Sandra Batista BUSINESS INTELLIGENCE DIRECTOR.[facility] Work Phone: [facility] 06-03-2020 influenza, injectabl e, quadrivalent, contains preservative Sandra Batista BUSINESS INTELLIGENCE DIRECTOR.[facility] Work Phone: [facility] Work Phone: 07-28-2016 tetanus toxoid, redu pino diphtheria toxoid, and acellular pertussis vaccine, adsorbed Sandra Batista BUSINESS INTELLIGENCE DIRECTOR.DEVELOPMENT DIRECTOR Work Phone: [facility] 05-10-2016 influenza, injectabl e, quadrivalent, contains preservative Sandra Batista BUSINESS INTELLIGENCE DIRECTOR.[facility] Work Phone: [facility] Work Phone: 06-29-2011 influenza virus vaccine, unspecified formulation Sandra Batista BUSINESS INTELLIGENCE DIRECTOR.DEVELOPMENT DIRECTOR Work Phone: [facility] 01-27-2010 tetanus toxoid, redu pino diphtheria toxoid, and acellular pertussis vaccine, adsorbed Sandra Batista BUSINESS INTELLIGENCE DIRECTOR.DEVELOPMENT DIRECTOR Work Phone: [facility] 03-04-2008 human papilloma viru s vaccine, quadrivalent Sandra Batista BUSINESS INTELLIGENCE DIRECTOR.DEVELOPMENT DIRECTOR Work Phone: [facility] Work Phone: 11-01-2007 human papilloma viru s vaccine, quadrivalent Sandra Batista BUSINESS INTELLIGENCE DIRECTOR.DEVELOPMENT DIRECTOR Work Phone: [facility] Work Phone: 09-01-2007 human papilloma viru s vaccine, quadrivalent Sandra Batista BUSINESS INTELLIGENCE DIRECTOR.DEVELOPMENT DIRECTOR Work Phone: [facility] 05-09-2002 diphtheria and tetan us toxoids, adsorbed for pediatric use Sandra Batista BUSINESS INTELLIGENCE DIRECTOR.DEVELOPMENT DIRECTOR Work Phone: [facility] Work Phone: 09-17-2000 hepatitis B immune globulin Sandra Batista BUSINESS INTELLIGENCE DIRECTOR.DEVELOPMENT DIRECTOR Work Phone: [facility] 04-09-2000 hepatitis B immune globulin Sandra Batista BUSINESS INTELLIGENCE DIRECTOR.DEVELOPMENT DIRECTOR Work Phone: [facility] 03-05-2000 hepatitis B immune globulin Sandra Batista BUSINESS INTELLIGENCE DIRECTOR.DEVELOPMENT DIRECTOR Work Phone: [facility] 03-05-2000 measles, mumps and rubella virus vaccine Sandra Batista BUSINESS INTELLIGENCE DIRECTOR.DEVELOPMENT DIRECTOR Work Phone: [facility] 03-06-1992 diphtheria, tetanus toxoids and pertussis vaccine Sandra Batista BUSINESS INTELLIGENCE DIRECTOR.DEVELOPMENT DIRECTOR Work Phone: [facility] 03-15-1991 haemophilus influenz ae type b vaccine, conjugate unspecified formulation Sandra Batista BUSINESS INTELLIGENCE DIRECTOR.DEVELOPMENT DIRECTOR Work Phone: [facility] 08-05-1988 diphtheria, tetanus toxoids and pertussis vaccine Sandra Batista BUSINESS INTELLIGENCE DIRECTOR.DEVELOPMENT DIRECTOR Work Phone: [facility] 08-05-1988 measles, mumps and rubella virus vaccine Sandra Batista BUSINESS INTELLIGENCE DIRECTOR.DEVELOPMENT DIRECTOR Work Phone: [facility] 03-04-1988 diphtheria, tetanus toxoids and pertussis vaccine Sandra Batista BUSINESS INTELLIGENCE DIRECTOR.DEVELOPMENT DIRECTOR Work Phone: [facility] 1985 diphtheria, tetanus toxoids and pertussis vaccine Sandra Batista BUSINESS INTELLIGENCE DIRECTOR.DEVELOPMENT DIRECTOR Work Phone: [facility] 1987 diphtheria, tetanus toxoids and pertussis vaccine Sandra Abtista BUSINESS INTELLIGENCE DIRECTOR.DEVELOPMENT DIRECTOR Work Phone: [facility] Payers Date Payer Category Payer Medicaid [id number] 2022 Medicaid [id number] 2013 Medicaid [employer] [id number] 2013-Present [phone] [address] [place] [address] Medicaid [id number] 2013 Medicaid [id number] Social History Date Type Detail Facility Start: 01-14-2011 End: 04-30-2022 Tobacco smoking status NHIS Never smoked tobacco [facility] Start: 04-23-2021 End: 08-22-2023 Alcohol intake Current drinker of alcohol (finding) [facility] Start: 04-15-2011 History SDOH Alcohol Comment OCCASIONALLY, BUT NOT WHILE [facility] Start: 1985 Sex Assigned At Not on file [facility] Start: 10-23-2021 End: 11-02-2021 Exposure to SARS-CoV-2 (event) Yes [facility] Work Phone: Start: 01-14-2011 End: 04-30-2022 Tobacco use and exposure Smokeless tobacco non-user [facility] Work Phone: Start: 04-09-2022 End: 04-30-2022 Exposure to SARS-CoV-2 (event) Not sure [facility] Work Phone: Start: 04-28-2022 History SDOH Alcohol Frequency 1 [facility] Start: 04-28-2022 History SDOH Alcohol Std Drinks 0 [facility] Start: 04-28-2022 History SDOH Social Connections Phone 4 [facility] Start: 04-28-2022 History SDOH Social Connections Get Together 2 [facility] Start: 04-28-2022 History SDOH Social Connections Living 7 [facility] Start: 04-28-2022 History SDOH Physica l Activity DPW 3 [facility] Start: 04-28-2022 End: 06-06-2023 History of Social function [facility] Start: 04-28-2022 End: 06-06-2023 Social connection and isolation panel [facility] Are you now , , , , never or living with a partner? Never [facility] How often to you hav e a drink containing alcohol? Never [facility] How many standard dr inks containing alcohol do you have on a typical day? Patient does not drink [facility] How hard is it for y ou to pay for the very basics like food, housing, medical care, and heating Somewhat hard [facility] Do you feel stress - tense, restless, nervous, or anxious, or unable to sleep at night because your mind is troubled all the time - these days [OSQ] Only a little [facility] (I/We) worried wheth er (my/our) food would run out before (I/we) got money to buy more. Never true [facility] In the past 12 month s, was there a time when you were not able to pay the mortgage or rent on time? No [facility] Clinical Notes 08-10-2016 to 09-15-2023 Davon Carpenter MD - 09/15/2023 3:36 PM ESTPatient InstructionsCarolyn Carrasco LPN - 09/15/2023 3:12 PM ESTTelephone Encounter - Carolyn Carrasco LPN - 07/05/2023 9:34 AM ESTPatient Instructions Note Date & Type Note Facility 09-15-2023 Note HNO ID: [id number] Author: DAVON CARPENTER MD Service: ? Author Type: Physician Type: Progress Notes Filed: 09/15/2023 15:41 Note Text: HISTORY AND PHYSICAL Shamar Silva 1985 REFERRING PHYSICIAN: No ref. provider found CHIEF COMPLAINT: Procedure (Ultrasound Guided Needle Core Biopsy left groin lymph node ) HPI: The patient is a 38 year old female with a complaint of large mass in her left groin. Patient states that this has been going on for several weeks. She thinks some days it is larger other days it smaller. She had been having some problems with what she thought was a sciatica in her left leg. She cannot recall any difficulty with urination she is not having any vaginal discharge she is not being treated for any sexually transmitted diseases. She has not been having any problems with her skin in her left lower extremity. I attempted to do an ultrasound-guided needle core biopsy of this but I just cannot see it with any clarity with my machine. I think we will need to do an excisional biopsy of this in the OR PAST MEDICAL HISTORY Diagnosis Date Abnormal Pap smear of cervix ACUTE GASTRITIS W/O HEMORRHAGE 08/22/2005 Chlamydia 12/11/2013 Chlamydia infection affecting in first trimester 03/25/2016 Needs LOLA next visit. _JV LGSIL (low grade squamous intraepithelial dysplasia) 02/15/14 Migraine, unspecified, with intractable migraine, so stated, without mention of status migrainosus Migraine PAST SURGICAL HISTORY Procedure Laterality Date ARTHROSCOPY KNEE DIAGNOSTIC W/WO SYNOVIAL BX SPX 08/01/2004 Arthroscopy, knee right, meniscal tear COLONOSCOPY GEN ANES 02/03/2021 Repeat at the age of 45/50 EGD 02/03/2021 KNEE ARTHROSCOPY/SURGERY 08/01/2010 surgery on left knee PAST SURGICAL HISTORY OF WISDOM TEETH VAGINOSCOPY 03/22/2014 Current Outpatient Medications Medication Sig ondansetron, PF, (ZOFRAN) 4 mg/2 mL syrg Inject 2 mL intravenously every 6 hours as needed for nausea/vomiting. (Patient not taking: Reported on 08/22/2023) ondansetron (ZOFRAN) 4 mg tablet Take 4 mg by mouth every 8 hours as needed. pantoprazole DR (PROTONIX) 20 mg tablet Take 20 mg by mouth two times a day. doxycycline (VIBRA-TABS) 100 mg tablet Take 1 tablet by mouth two times a day. (Patient not taking: Reported on 06/28/2023) CREON 36,000-114,000- 180,000 unit delayed release capsule LINZESS 145 mcg capsule Take 145 mcg by mouth every morning. baclofen (LIORESAL) 10 mg tablet (Patient not taking: Reported on 06/04/2023) omeprazole (PRILOSEC) 20 mg capsule take 2 capsules by mouth once daily (Patient not taking: Reported on 08/22/2023) loratadine (CLARITIN) 10 mg tablet Take 10 mg by mouth as needed. etonogestrel (NEXPLANON) 68 mg impl subdermal implant 1 Each by SUBDERMAL route one time only for 1 dose. fluticasone (FLONASE) 50 mcg/actuation nasal spray Use 2 Sprays in each nostril once daily. Rinse mouth after use. (Patient taking differently: Use 2 Sprays in each nostril as needed. Rinse mouth after use.) No current facility-administered medications for this visit. ALLERGIES: Morphine PERSONAL HISTORY: Social History Tobacco Use Smoking status: Never Smokeless tobacco: Never Vaping Use Vaping Use: Never used Substance Use Topics Alcohol use: Yes Comment: OCCASIONALLY, BUT NOT WHILE Drug use: No FAMILY HISTORY: FAMILY HISTORY Problem Relation Age of Onset other (HTN) Father Diabetes Maternal Grandmother Thyroid Maternal Grandfather Diabetes Maternal Grandfather Colon Cancer Paternal Grandmother Diabetes Paternal Grandmother Heart Paternal Grandmother other (cystic fibrosis [Other]) Paternal Grandmother other (ovarian cysts [Other]) Paternal Grandmother REVIEW OF SYSTEMS: General: The patient denies fatigue, denies weight loss, denies weight gain, denies feeling hot, and denies feelings of cold. Eyes: The patient denies glaucoma, denies eye injury/surgery, wears glasses or contacts. Ear/Nose/Throat: The patient NOTES allergies, denies hayfever, denies ear infections, and denies bloody noses. Cardiovascular: The patient denies chest pain, denies heart disease, denies high blood pressure,denies cardiac stent, denies prior heart attack, denies irregular heart beat, denies high cholesterol, denies poor circulation, denies heart failure, other cardiac issues, denies claudication, denies cold feet, denies peripheral arterial stent. Respiratory: The patient denies tuberculosis, denies pneumonia, denies frequent cough, denies pulmonary embolism, denies shortness of breath, and denies coughing up blood. Gastrointestinal: The patient denies difficulty swallowing, NOTES acid reflux, denies ulcers, NOTES vomiting, denies jaundice/hepatitis, denies gallbladder problems, denies black or tarry stools, denies hemorrhoids, denies bleeding from rectum, denies diverticulitis, NOTES constipation, denies diarrhea, denies loss o (more content not included)... [facility] 09-15-2023 History of Presen t illness Narrative HISTORY AND PHYSICAL Shamar Silva 1985 REFERRING PHYSICIAN: No ref. provider found CHIEF COMPLAINT: Procedure (Ultrasound Guided Needle Core Biopsy left groin lymph node ) HPI: The patient is a 38 year old female with a complaint of large mass in her left groin. Patient states that this has been going on for several weeks. She thinks some days it is larger other days it smaller. She had been having some problems with what she thought was a sciatica in her left leg. She cannot recall any difficulty with urination she is not having any vaginal discharge she is not being treated for any sexually transmitted diseases. She has not been having any problems with her skin in her left lower extremity. I attempted to do an ultrasound-guided needle core biopsy of this but I just cannot see it with any clarity with my machine. I think we will need to do an excisional biopsy of this in the OR PAST MEDICAL HISTORY Diagnosis Date Abnormal Pap smear of cervix ACUTE GASTRITIS W/O HEMORRHAGE 08/22/2005 Chlamydia 12/11/2013 Chlamydia infection affecting in first trimester 03/25/2016 Needs LOLA next visit. _JV LGSIL (low grade squamous intraepithelial dysplasia) 02/15/14 Migraine, unspecified, with intractable migraine, so stated, without mention of status migrainosus Migraine PAST SURGICAL HISTORY Procedure Laterality Date ARTHROSCOPY KNEE DIAGNOSTIC W/WO SYNOVIAL BX SPX 08/01/2004 Arthroscopy, knee right, meniscal tear COLONOSCOPY GEN ANES 02/03/2021 Repeat at the age of 45/50 EGD 02/03/2021 KNEE ARTHROSCOPY/SURGERY 08/01/2010 surgery on left knee PAST SURGICAL HISTORY OF WISDOM TEETH VAGINOSCOPY 03/22/2014 Current Outpatient Medications Medication Sig ondansetron, PF, (ZOFRAN) 4 mg/2 mL syrg Inject 2 mL intravenously every 6 hours as needed for nausea/vomiting. (Patient not taking: Reported on 08/22/2023) ondansetron (ZOFRAN) 4 mg tablet Take 4 mg by mouth every 8 hours as needed. pantoprazole DR (PROTONIX) 20 mg tablet Take 20 mg by mouth two times a day. doxycycline (VIBRA-TABS) 100 mg tablet Take 1 tablet by mouth two times a day. (Patient not taking: Reported on 06/28/2023) CREON 36,000-114,000- 180,000 unit delayed release capsule LINZESS 145 mcg capsule Take 145 mcg by mouth every morning. baclofen (LIORESAL) 10 mg tablet (Patient not taking: Reported on 06/04/2023) omeprazole (PRILOSEC) 20 mg capsule take 2 capsules by mouth once daily (Patient not taking: Reported on 08/22/2023) loratadine (CLARITIN) 10 mg tablet Take 10 mg by mouth as needed. etonogestrel (NEXPLANON) 68 mg impl subdermal implant 1 Each by SUBDERMAL route one time only for 1 dose. fluticasone (FLONASE) 50 mcg/actuation nasal spray Use 2 Sprays in each nostril once daily. Rinse mouth after use. (Patient taking differently: Use 2 Sprays in each nostril as needed. Rinse mouth after use.) No current facility-administered medications for this visit. ALLERGIES: Morphine PERSONAL HISTORY: Social History Tobacco Use Smoking status: Never Smokeless tobacco: Never Vaping Use Vaping Use: Never used Substance Use Topics Alcohol use: Yes Comment: OCCASIONALLY, BUT NOT WHILE Drug use: No FAMILY HISTORY: FAMILY HISTORY Problem Relation Age of Onset other (HTN) Father Diabetes Maternal Grandmother Thyroid Maternal Grandfather Diabetes Maternal Grandfather Colon Cancer Paternal Grandmother Diabetes Paternal Grandmother Heart Paternal Grandmother other (cystic fibrosis [Other]) Paternal Grandmother other (ovarian cysts [Other]) Paternal Grandmother REVIEW OF SYSTEMS: General: The patient denies fatigue, denies weight loss, denies weight gain, denies feeling hot, and denies feelings of cold. Eyes: The patient denies glaucoma, denies eye injury/surgery, wears glasses or contacts. Ear/Nose/Throat: The patient NOTES allergies, denies hayfever, denies ear infections, and denies bloody noses. Cardiovascular: The patient denies chest pain, denies heart disease, denies high blood pressure,denies cardiac stent, denies prior heart attack, denies irregular heart beat, denies high cholesterol, denies poor circulation, denies heart failure, other cardiac issues, denies claudication, denies cold feet, denies peripheral arterial stent. Respiratory: The patient denies tuberculosis, denies pneumonia, denies frequent cough, denies pulmonary embolism, denies shortness of breath, and denies coughing up blood. Gastrointestinal: The patient denies difficulty swallowing, NOTES acid reflux, denies ulcers, NOTES vomiting, denies jaundice/hepatitis, denies gallbladder problems, denies black or tarry stools, denies hemorrhoids, denies bleeding from rectum, denies diverticulitis, NOTES constipation, denies diarrhea, denies loss of stool control, and NOTES hernias. Kidney/Bladder: The patient NOTES kidney stones, denies urine infections, and denies bloody urine. Skin: The patient denies a history of skin cancer, denies bleeding/changing moles, and denies a history of skin rash. Neurologic: The patient denies a history of epilepsy/convulsions, NOTES headaches, denies head/spinal injuries, and denies stroke/TIA. Psychiatric: The patient denies psychiatric medications, denies depression, and denies voices, denies substance abuse. Endocrine: The patient denies thyroid disorders, denies diabetes, and denies hormonal problems. Hematologic: The patient denies a history of bruising, denies bleeding, and denies anemia, denies blood clots. Infections: The patient denies a history of measles and mumps, denies rheumatic fever, and denies sexually transmitted diseases. Musculoskeletal: The patient denies back pain/injury, NOTES back problems, denies sciatica, denies knee/foot trouble, denies arthritis, or denies gout. When was patient's last Mammogram screening? Never Last Colonoscopy: never PHYSICAL EXAMINATION: General: The patient is 38 year old female, well nourished, well hydrated in no acute distress. The patient is oriented to time, place, and person. VITALS: currently . HEENT: Normal cephalic, ataumatic, pupils are equally round, sclera are anicteric, mucous membranes are moist, oropharynx is clear. Neck has no masses, asymmetry or lymphadenopathy. Thyroid is unremarkable. Respiratory: Clear to auscultation and percussion. Normal respiratory excursion and pattern. Cardiac: Examination is regular rate and rhythm. Abdominal exam: Soft, nontender, with no palpable masses. No hepatosplenomegaly. No palpable hernias. Rectal exam: exam deferred Extremities: no clubbing, cyanosis or edema. No adenopathy. Other: Left groin the lateral aspect and the inferior aspect of the inguinal ligament. Is a soft mobile subcutaneous mass. It is not in the location you would expect a hernia to be located such as a femoral hernia. It is clearly not an inguinal hernia. It is slightly tender to touch. He has all the characteristics of a enlarged lymph node. Palpation of the right groin she also has shotty lymphadenopathy there as well. LABORATORY VALUES: As Noted RADIOLOGIC STUDIES: As Noted Assessment IMPRESSION: Enlarged lymph nodes (primary encounter diagnosis) Groin mass PLAN: Will plan for an excisional biopsy of this lymph node in the left groin. The planned surgical procedure was discussed extensively with the patient. The risks, benefits, anticipated outcomes and possible complications were mentioned. My staff has also explained the procedure in understandable terms and the patient was given the option to take printed material concerning the planned procedure. The patient had the opportunity to ask questions concerning the planned procedure. The patient freely consents to the planned procedure. Diagnoses: (R59.9) Enlarged lymph nodes (primary encounter diagnosis) (R19.09) Groin mass Return to Clinic: The patient is instructed to follow-up with me 1 week post operatively. Davon Carpenter III, MD documented in this encounter [facility] 09-15-2023 Instructions Carolyn Carrasco LPN - 09/15/2023 3:26 PM EST . documented in this encounter [facility] 09-15-2023 Nurse Note UNIVERSAL PROTOCOL / SAFETY CHECKLIST Procedure to be Performed: Ultrasound Guided Needle Core Biopsy left groin lymph node Sign In: A Moment of CARE was completed. Personnel directly involved with the procedure wore the appropriate PPE (Personal Protective Equipment). Special equipment: 14g bard max core disposable core biopsy instrument Patient/Surrogate Stated/Verified: PATIENT VERIFIED(optional for EMERGENT procedures): Patient name, Date of , Relevant allergies, and The intended procedure Time Out Communication: Intended patient and procedure match the source documents. Consent documented and matches the intended procedure. Relevant labs, photos, and/or imaging studies have been reviewed. Correct side/site marked and visible. No medications required for procedure. No fire risk assessment and interventions applicable. No implant(s) inserted. Sign Out: SIGN OUT (optional for EMERGENT procedures): All specimen containers correctly labeled. No instruments, equipment or retained foreign bodies applicable. Post-procedure follow-up management communicated and Plan of Care Visit completed when applicable. Carolyn Carrasco LPN documented in this encounter [facility] 08-23-2023 Note HNO ID: [id number] Author: DAVON CARPENTER MD Service: ? Author Type: Physician Type: Progress Notes Filed: 08/23/2023 08:12 Note Text: Patient is status post an ultrasound of the area in her left groin. Shows a small lymph node. Patient has been experiencing some fevers off and on. Objective:Blood pressure 118/62, pulse 88, temperature 36.6 ?C (97.9 ?F), height 162.6 cm (5' 4 ), weight 60.8 kg (134 lb), SpO2 99%, currently . Small 2 cm lymph node in the left groin area. It feels soft no signs of cellulitis there is no firmness to it. Assessment:Enlarged lymph nodes (primary encounter diagnosis) Plan: Going to do a needle core biopsy of this in the office. [facility] 07-05-2023 Miscellaneous Notes Called patient and LVM to call our office back regarding phone call last week. Carolyn Carrasco LPN Patient called. Verified name and date of . Patient was prescribed prednisone. The pharmacist advised patient to call to verify it is okay to take due to lymph node and possibly masking the edema. Please review and advise. The lymph node is a tiny bit smaller than previously but pharmacist is concerned the prednisone will cause it to get smaller and mask what is actually going on. Carlita Betts LPN documented in this encounter [facility] 06-28-2023 Note HNO ID: [id number] Author: Junaid Dc PA-C Service: ? Author Type: Physician Election Assistant Type: Progress Notes Filed: 06/28/2023 10:40 AM Note Text: This note was created using NoteWriter. Subjective Shamar N Ricardo is a 38 year old female. HPI Patient presents with a chief complaint of left rib and wrist pain over the past 4 to 5 days. States she slipped in her bathroom landing on her left side. No head or neck injury. She states that it hurts to breathe and when she sneezes or coughs in her ribs. She has been using heat and ice on the area. She states she also has some pain in her left wrist when she moves it periodically. Review of Systems Cardiovascular: Left rib pain Musculoskeletal: Left wrist pain All other systems reviewed and are negative. PAST MEDICAL HISTORY Diagnosis Date Abnormal Pap smear of cervix ACUTE GASTRITIS W/O HEMORRHAGE 08/22/2005 Chlamydia 12/11/2013 Chlamydia infection affecting in first trimester 03/25/2016 Needs LOLA next visit. 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 14 Each 0 ondansetron (ZOFRAN) 4 mg tablet Take 4 mg by mouth every 8 hours as needed. pantoprazole DR (PROTONIX) 20 mg tablet Take 20 mg by mouth two times a day. CREON 36,000-114,000- 180,000 unit delayed release capsule LINZESS 145 mcg capsule Take 145 mcg by mouth every morning. loratadine (CLARITIN) 10 mg tablet Take 10 mg by mouth once daily. etonogestrel (NEXPLANON) 68 mg impl subdermal implant 1 Each by SUBDERMAL route one time only for 1 dose. 1 Each 0 fluticasone (FLONASE) 50 mcg/actuation nasal spray Use 2 Sprays in each nostril once daily. Rinse mouth after use. 1 Bottle 0 predniSONE (DELTASONE) 20 mg tablet Take 2 tablets by mouth once daily for 5 days. 10 tablet 0 doxycycline (VIBRA-TABS) 100 mg tablet Take 1 tablet by mouth two times a day. (Patient not taking: Reported on 06/28/2023) 20 tablet 0 baclofen (LIORESAL) 10 mg tablet (Patient not taking: Reported on 06/04/2023) omeprazole (PRILOSEC) 20 mg capsule take 2 capsules by mouth once daily (Patient not taking: Reported on 11/06/2022) 60 capsule 0 No current facility-administered medications for this visit. PAST SURGICAL HISTORY Procedure Laterality Date ARTHROSCOPY KNEE DIAGNOSTIC W/WO SYNOVIAL BX SPX 08/01/2004 Arthroscopy, knee right, meniscal tear COLONOSCOPY GEN ANES 02/03/2021 Repeat at the age of 45/50 EGD 02/03/2021 KNEE ARTHROSCOPY/SURGERY 08/01/2010 surgery on left knee PAST SURGICAL HISTORY OF WISDOM TEETH VAGINOSCOPY 03/22/2014 FAMILY HISTORY Problem Relation Age of Onset other (HTN) Father Diabetes Maternal Grandmother Thyroid Maternal Grandfather Diabetes Maternal Grandfather Colon Cancer Paternal Grandmother Diabetes Paternal Grandmother Heart Paternal Grandmother other (cystic fibrosis [Other]) Paternal Grandmother other (ovarian cysts [Other]) Paternal Grandmother Social History Tobacco Use Smoking status: Never Smokeless tobacco: Never Vaping Use Vaping Use: Never used Substance Use Topics Alcohol use: Yes Comment: OCCASIONALLY, BUT NOT WHILE Drug use: No Objective BP 110/72 Pulse 80 Temp 36.8 ?C (98.2 ?F) Resp 18 Wt 59.4 kg (131 lb) LMP (LMP Unknown) SpO2 100% BMI 22.49 kg/m? Physical Exam Vitals reviewed. Constitutional: Appearance: Normal appearance. HENT: Head: Normocephalic and atraumatic. Pulmonary: Comments: Patient tender along the anterior and lateral left ribs. No bruising or swelling. Pain with taking a deep breath. Lungs are clear. Musculoskeletal: Comments: Patient tender along the radial side of the left wrist. Some pain with flexion and extension. No tenderness to the hand. Normal hand dining room captain strength. Radial pulse 2+. Skin: General: Skin is warm and dry. Neurological: Mental Status: She is alert. Assessment and Plan ASSESSMENT/PLAN: 1. Rib injury - ICD9: 959.11, ICD10: S29.9XXA (primary diagnosis) Rib and wrist show no fractures. I feel she does have a strain of the wrist and contusion of her ribs. I did send prednisone for pain. May continue Tylenol, heat or ice. Follow-up with PCP if not improving. - XR RIBS/CHEST 3V AP RIB/OBLS/CXR LEFT - PREDNISONE 20 MG TABLET 2. Left wrist pain - ICD9: 719.43, ICD10: M25.532 - XR WRIST INJURY 4V PA/LAT/OBL/SCAPH LEFT Junaid Dc PA-C [facility] 06-28-2023 Note HNO ID: [id number] Author: Alma Rosa Jay RT(R) Service: Radiology Author Type: Technologist Type: Progress Notes Filed: 06/28/2023 10:12 AM Note Text: Radiology Service Progress Note PATIENT NAME: Shamar Silva DATE OF SERVICE: June 28, 2023 TIME: 10:02 AM PATIENT IDENTITY VERIFICATION COMPLETED USING TWO (2) IDENTIFIERS: Name and Date of confirmed by patient verbally. FALL SCREENING: Has the patient had 2 falls in the last year or 1 fall with injury or currently using an Ambulatory Assistive Device (Walker, Cane, Wheelchair, Crutches, etc.)? No PATIENT GENDER DATA: Female. status: : No status: NO. PATIENT RELEVANT IMPLANT DATA REVIEWED: Not Applicable RADIOLOGY DEPARTMENT: General X-ray: Exam(s) Completed: Rib X-Ray: Left Upper Extremity X-Ray(s): Wrist, left PERIPHERAL IV DATA: Not applicable SIGNED BY: RT Saundra(R) June 28, 2023 10:02 AM [facility] 06-28-2023 History of Presen t illness Narrative This note was created using Crowdneticriter. Subjective hSamar Silva is a 38 year old female. HPI Patient presents with a chief complaint of left rib and wrist pain over the past 4 to 5 days. States she slipped in her bathroom landing on her left side. No head or neck injury. She states that it hurts to breathe and when she sneezes or coughs in her ribs. She has been using heat and ice on the area. She states she also has some pain in her left wrist when she moves it periodically. Review of Systems Cardiovascular: Left rib pain Musculoskeletal: Left wrist pain All other systems reviewed and are negative. PAST MEDICAL HISTORY Diagnosis Date Abnormal Pap smear of cervix ACUTE GASTRITIS W/O HEMORRHAGE 08/22/2005 Chlamydia 12/11/2013 Chlamydia infection affecting in first trimester 03/25/2016 Needs LOLA next visit. 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 14 Each 0 ondansetron (ZOFRAN) 4 mg tablet Take 4 mg by mouth every 8 hours as needed. pantoprazole DR (PROTONIX) 20 mg tablet Take 20 mg by mouth two times a day. CREON 36,000-114,000- 180,000 unit delayed release capsule LINZESS 145 mcg capsule Take 145 mcg by mouth every morning. loratadine (CLARITIN) 10 mg tablet Take 10 mg by mouth once daily. etonogestrel (NEXPLANON) 68 mg impl subdermal implant 1 Each by SUBDERMAL route one time only for 1 dose. 1 Each 0 fluticasone (FLONASE) 50 mcg/actuation nasal spray Use 2 Sprays in each nostril once daily. Rinse mouth after use. 1 Bottle 0 predniSONE (DELTASONE) 20 mg tablet Take 2 tablets by mouth once daily for 5 days. 10 tablet 0 doxycycline (VIBRA-TABS) 100 mg tablet Take 1 tablet by mouth two times a day. (Patient not taking: Reported on 06/28/2023) 20 tablet 0 baclofen (LIORESAL) 10 mg tablet (Patient not taking: Reported on 06/04/2023) omeprazole (PRILOSEC) 20 mg capsule take 2 capsules by mouth once daily (Patient not taking: Reported on 11/06/2022) 60 capsule 0 No current facility-administered medications for this visit. PAST SURGICAL HISTORY Procedure Laterality Date ARTHROSCOPY KNEE DIAGNOSTIC W/WO SYNOVIAL BX SPX 08/01/2004 Arthroscopy, knee right, meniscal tear COLONOSCOPY GEN ANES 02/03/2021 Repeat at the age of 45/50 EGD 02/03/2021 KNEE ARTHROSCOPY/SURGERY 08/01/2010 surgery on left knee PAST SURGICAL HISTORY OF WISDOM TEETH VAGINOSCOPY 03/22/2014 FAMILY HISTORY Problem Relation Age of Onset other (HTN) Father Diabetes Maternal Grandmother Thyroid Maternal Grandfather Diabetes Maternal Grandfather Colon Cancer Paternal Grandmother Diabetes Paternal Grandmother Heart Paternal Grandmother other (cystic fibrosis [Other]) Paternal Grandmother other (ovarian cysts [Other]) Paternal Grandmother Social History Tobacco Use Smoking status: Never Smokeless tobacco: Never Vaping Use Vaping Use: Never used Substance Use Topics Alcohol use: Yes Comment: OCCASIONALLY, BUT NOT WHILE Drug use: No Objective BP 110/72 Pulse 80 Temp 36.8 C (98.2 F) Resp 18 Wt 59.4 kg (131 lb) LMP (LMP Unknown) SpO2 100% BMI 22.49 kg/m Physical Exam Vitals reviewed. Constitutional: Appearance: Normal appearance. HENT: Head: Normocephalic and atraumatic. Pulmonary: Comments: Patient tender along the anterior and lateral left ribs. No bruising or swelling. Pain with taking a deep breath. Lungs are clear. Musculoskeletal: Comments: Patient tender along the radial side of the left wrist. Some pain with flexion and extension. No tenderness to the hand. Normal hand dining room captain strength. Radial pulse 2+. Skin: General: Skin is warm and dry. Neurological: Mental Status: She is alert. Assessment and Plan ASSESSMENT/PLAN: 1. Rib injury - ICD9: 959.11, ICD10: S29.9XXA (primary diagnosis) Rib and wrist show no fractures. I feel she does have a strain of the wrist and contusion of her ribs. I did send prednisone for pain. May continue Tylenol, heat or ice. Follow-up with PCP if not improving. - XR RIBS/CHEST 3V AP RIB/OBLS/CXR LEFT - PREDNISONE 20 MG TABLET 2. Left wrist pain - ICD9: 719.43, ICD10: M25.532 - XR WRIST INJURY 4V PA/LAT/OBL/SCAPH LEFT Junaid Dc PA-C documented in this encounter [facility] 06-10-2023 Note HNO ID: [id number] Author: Karin Larios LPN Service: ? Author Type: LICENSED NURSE Type: Progress Notes Filed: 06/10/2023 10:29 AM Note Text: Note area of concern. Pended. Karin Larios LPN [facility] 06-10-2023 Note HNO ID: [id number] Author: Gail Epstein, ANITA Service: ? Author Type: Registered Nurse Type: Progress Notes Filed: 06/10/2023 10:29 AM Note Text: [facility] 06-10-2023 Note HNO ID: [id number] Author: Davon Carpenter MD Service: ? Author Type: Physician Type: Progress Notes Filed: 06/10/2023 10:29 AM Note Text: HISTORY AND PHYSICAL Shamar Silva 1985 REFERRING PHYSICIAN: Junaid Dc PA-C CHIEF COMPLAINT: Consult (Left groin mass) HPI: The patient is a 38 year old female with a complaint of an large mass in her left groin. Patient states that this has been going on for several weeks. She thinks some days it is larger other days it smaller. She had been having some problems with what she thought was a sciatica in her left leg. She cannot recall any difficulty with urination she is not having any vaginal discharge she is not being treated for any sexually transmitted diseases. She has not been having any problems with her skin in her left lower extremity. The patient is being seen by me today at the request of Dr. Dc for my opinion and advice regarding Groin mass PAST MEDICAL HISTORY Diagnosis Date Abnormal Pap smear of cervix ACUTE GASTRITIS W/O HEMORRHAGE 08/22/2005 Chlamydia 12/11/2013 Chlamydia infection affecting in first trimester 03/25/2016 Needs LOLA next visit. 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 pantoprazole DR (PROTONIX) 20 mg tablet Take 20 mg by mouth two times a day. CREON 36,000-114,000- 180,000 unit delayed release capsule LINZESS 145 mcg capsule Take 145 mcg by mouth every morning. loratadine (CLARITIN) 10 mg tablet Take 10 mg by mouth once daily. etonogestrel (NEXPLANON) 68 mg impl subdermal implant 1 Each by SUBDERMAL route one time only for 1 dose. fluticasone (FLONASE) 50 mcg/actuation nasal spray Use 2 Sprays in each nostril once daily. Rinse mouth after use. baclofen (LIORESAL) 10 mg tablet (Patient not taking: Reported on 06/04/2023) omeprazole (PRILOSEC) 20 mg capsule take 2 capsules by mouth once daily (Patient not taking: Reported on 11/06/2022) No current facility-administered medications for this visit. ALLERGIES: Morphine PERSONAL HISTORY: Social History Tobacco Use Smoking status: Never Smokeless tobacco: Never Vaping Use Vaping Use: Never used Substance Use Topics Alcohol use: Yes Comment: OCCASIONALLY, BUT NOT WHILE Drug use: No FAMILY HISTORY: FAMILY HISTORY Problem Relation Age of Onset other (HTN) Father Diabetes Maternal Grandmother Thyroid Maternal Grandfather Diabetes Maternal Grandfather Colon Cancer Paternal Grandmother Diabetes Paternal Grandmother Heart Paternal Grandmother other (cystic fibrosis [Other]) Paternal Grandmother other (ovarian cysts [Other]) Paternal Grandmother REVIEW OF SYMPTOMS: The review of systems data was entered by the nurse and reviewed by me Nursing Notes: Carolyn Carrasco LPN 06/10/2023 9:03 AM Signed REVIEW OF SYSTEMS: General: The patient denies fatigue, denies weight loss, denies weight gain, denies feeling hot, and denies feelings of cold. Eyes: The patient denies glaucoma, denies eye injury/surgery, wears glasses or contacts. Ear/Nose/Throat: The patient NOTES allergies, denies hayfever, denies ear infections, and denies bloody noses. Cardiovascular: The patient denies chest pain, denies heart disease, denies high blood pressure,denies cardiac stent, denies prior heart attack, denies irregular heart beat, denies high cholesterol, denies poor circulation, denies heart failure, other cardiac issues, denies claudication, denies cold feet, denies peripheral arterial stent. Respiratory: The patient denies tuberculosis, denies pneumonia, denies frequent cough, denies pulmonary embolism, denies shortness of breath, and denies coughing up blood. Gastrointestinal: The patient denies difficulty swallowing, NOTES acid reflux, denies ulcers, NOTES vomiting, denies jaundice/hepatitis, denies gallbladder problems, denies black or tarry stools, denies hemorrhoids, denies bleeding from rectum, denies diverticulitis, NOTES constipation, denies diarrhea, denies loss of stool control, and NOTES hernias. Kidney/Bladder: The patient NOTES kidney stones, denies urine infections, and denies bloody urine. Skin: The patient denies a history of skin cancer, denies bleeding/changing moles, and denies a history of skin rash. Neurologic: The patient denies a history of epilepsy/convulsions, NOTES h (more content not included)... [facility] 06-10-2023 History of Presen t illness Narrative Note area of concern. Pended. Karin Larios LPN us HISTORY AND PHYSICAL Shamar Silva 1985 REFERRING PHYSICIAN: Junaid Dc PA-C CHIEF COMPLAINT: Consult (Left groin mass) HPI: The patient is a 38 year old female with a complaint of an large mass in her left groin. Patient states that this has been going on for several weeks. She thinks some days it is larger other days it smaller. She had been having some problems with what she thought was a sciatica in her left leg. She cannot recall any difficulty with urination she is not having any vaginal discharge she is not being treated for any sexually transmitted diseases. She has not been having any problems with her skin in her left lower extremity. The patient is being seen by me today at the request of Dr. Dc for my opinion and advice regarding Groin mass PAST MEDICAL HISTORY Diagnosis Date Abnormal Pap smear of cervix ACUTE GASTRITIS W/O HEMORRHAGE 08/22/2005 Chlamydia 12/11/2013 Chlamydia infection affecting in first trimester 03/25/2016 Needs LOLA next visit. 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 pantoprazole DR (PROTONIX) 20 mg tablet Take 20 mg by mouth two times a day. CREON 36,000-114,000- 180,000 unit delayed release capsule LINZESS 145 mcg capsule Take 145 mcg by mouth every morning. loratadine (CLARITIN) 10 mg tablet Take 10 mg by mouth once daily. etonogestrel (NEXPLANON) 68 mg impl subdermal implant 1 Each by SUBDERMAL route one time only for 1 dose. fluticasone (FLONASE) 50 mcg/actuation nasal spray Use 2 Sprays in each nostril once daily. Rinse mouth after use. baclofen (LIORESAL) 10 mg tablet (Patient not taking: Reported on 06/04/2023) omeprazole (PRILOSEC) 20 mg capsule take 2 capsules by mouth once daily (Patient not taking: Reported on 11/06/2022) No current facility-administered medications for this visit. ALLERGIES: Morphine PERSONAL HISTORY: Social History Tobacco Use Smoking status: Never Smokeless tobacco: Never Vaping Use Vaping Use: Never used Substance Use Topics Alcohol use: Yes Comment: OCCASIONALLY, BUT NOT WHILE Drug use: No FAMILY HISTORY: FAMILY HISTORY Problem Relation Age of Onset other (HTN) Father Diabetes Maternal Grandmother Thyroid Maternal Grandfather Diabetes Maternal Grandfather Colon Cancer Paternal Grandmother Diabetes Paternal Grandmother Heart Paternal Grandmother other (cystic fibrosis [Other]) Paternal Grandmother other (ovarian cysts [Other]) Paternal Grandmother REVIEW OF SYMPTOMS: The review of systems data was entered by the nurse and reviewed by me Nursing Notes: Carolyn Carrasco LPN 06/10/2023 9:03 AM Signed REVIEW OF SYSTEMS: General: The patient denies fatigue, denies weight loss, denies weight gain, denies feeling hot, and denies feelings of cold. Eyes: The patient denies glaucoma, denies eye injury/surgery, wears glasses or contacts. Ear/Nose/Throat: The patient NOTES allergies, denies hayfever, denies ear infections, and denies bloody noses. Cardiovascular: The patient denies chest pain, denies heart disease, denies high blood pressure,denies cardiac stent, denies prior heart attack, denies irregular heart beat, denies high cholesterol, denies poor circulation, denies heart failure, other cardiac issues, denies claudication, denies cold feet, denies peripheral arterial stent. Respiratory: The patient denies tuberculosis, denies pneumonia, denies frequent cough, denies pulmonary embolism, denies shortness of breath, and denies coughing up blood. Gastrointestinal: The patient denies difficulty swallowing, NOTES acid reflux, denies ulcers, NOTES vomiting, denies jaundice/hepatitis, denies gallbladder problems, denies black or tarry stools, denies hemorrhoids, denies bleeding from rectum, denies diverticulitis, NOTES constipation, denies diarrhea, denies loss of stool control, and NOTES hernias. Kidney/Bladder: The patient NOTES kidney stones, denies urine infections, and denies bloody urine. Skin: The patient denies a history of skin cancer, denies bleeding/changing moles, and denies a history of skin rash. Neurologic: The patient denies a history of epilepsy/convulsions, NOTES headaches, denies head/spinal injuries, and denies stroke/TIA. Psychiatric: The patient denies psychiatric medications, denies depression, and denies voices, denies substance abuse. Endocrine: The patient denies thyroid disorders, denies diabetes, and denies hormonal problems. Hematologic: The patient denies a history of bruising, denies bleeding, and denies anemia, denies blood clots. Infections: The patient denies a history of measles and mumps, denies rheumatic fever, and denies sexually transmitted diseases. Musculoskeletal: The patient denies back pain/injury, NOTES back problems, denies sciatica, denies knee/foot trouble, denies arthritis, or denies gout. When was patient's last Mammogram screening? Never Last Colonoscopy: never Carolyn Carrasco LPN PHYSICAL EXAMINATION: General: The patient is 38 year old female, well nourished, well hydrated in no acute distress. The patient is oriented to time, place, and person. VITALS: Blood pressure 118/76, pulse 86, temperature 36.8 C (98.2 F), height 162.6 cm (5' 4 ), weight 59.7 kg (131 lb 9.6 oz), SpO2 99 %, currently . HEENT: Normal cephalic, ataumatic, pupils are equally round, sclera are anicteric, mucous membranes are moist, oropharynx is clear. Neck has no masses, asymmetry or lymphadenopathy. Thyroid is unremarkable. Respiratory: Clear to auscultation and percussion. Normal respiratory excursion and pattern. Cardiac: Examination is regular rate and rhythm. Abdominal exam: Soft, nontender, with no palpable masses. No hepatosplenomegaly. No palpable hernias. Rectal exam: exam deferred Extremities: no clubbing, cyanosis or edema. No adenopathy. Other: Left groin the lateral aspect and the inferior aspect of the inguinal ligament. Is a soft mobile subcutaneous mass. It is not in the location you would expect a hernia to be located such as a femoral hernia. It is clearly not an inguinal hernia. It is slightly tender to touch. He has all the characteristics of a enlarged lymph node. Palpation of the right groin she also has shotty lymphadenopathy there as well. LABORATORY VALUES: As Noted RADIOLOGIC STUDIES: As Noted Assessment IMPRESSION: Groin mass PLAN: Going to obtain an ultrasound of the left groin. I am going to give her a short course of antibiotics and I will see her back in 1 month to see if this is changed if it has not we will do an ultrasound-guided needle core biopsy of this. Diagnoses: (R19.09) Groin mass My findings have been communicated to Dr. Dc via shared medical record. This note will be forwarded to Dr. Elly Rosa MD. Return to Clinic: The patient is instructed to follow-up with me after the testing has been completed. Davon Carpenter III, MD documented in this encounter [facility] 06-10-2023 Nurse Note REVIEW OF SYSTEMS: General: The patient denies fatigue, denies weight loss, denies weight gain, denies feeling hot, and denies feelings of cold. Eyes: The patient denies glaucoma, denies eye injury/surgery, wears glasses or contacts. Ear/Nose/Throat: The patient NOTES allergies, denies hayfever, denies ear infections, and denies bloody noses. Cardiovascular: The patient denies chest pain, denies heart disease, denies high blood pressure,denies cardiac stent, denies prior heart attack, denies irregular heart beat, denies high cholesterol, denies poor circulation, denies heart failure, other cardiac issues, denies claudication, denies cold feet, denies peripheral arterial stent. Respiratory: The patient denies tuberculosis, denies pneumonia, denies frequent cough, denies pulmonary embolism, denies shortness of breath, and denies coughing up blood. Gastrointestinal: The patient denies difficulty swallowing, NOTES acid reflux, denies ulcers, NOTES vomiting, denies jaundice/hepatitis, denies gallbladder problems, denies black or tarry stools, denies hemorrhoids, denies bleeding from rectum, denies diverticulitis, NOTES constipation, denies diarrhea, denies loss of stool control, and NOTES hernias. Kidney/Bladder: The patient NOTES kidney stones, denies urine infections, and denies bloody urine. Skin: The patient denies a history of skin cancer, denies bleeding/changing moles, and denies a history of skin rash. Neurologic: The patient denies a history of epilepsy/convulsions, NOTES headaches, denies head/spinal injuries, and denies stroke/TIA. Psychiatric: The patient denies psychiatric medications, denies depression, and denies voices, denies substance abuse. Endocrine: The patient denies thyroid disorders, denies diabetes, and denies hormonal problems. Hematologic: The patient denies a history of bruising, denies bleeding, and denies anemia, denies blood clots. Infections: The patient denies a history of measles and mumps, denies rheumatic fever, and denies sexually transmitted diseases. Musculoskeletal: The patient denies back pain/injury, NOTES back problems, denies sciatica, denies knee/foot trouble, denies arthritis, or denies gout. When was patient's last Mammogram screening? Never Last Colonoscopy: never Carolyn Crarasco LPN documented in this encounter [facility] 06-05-2023 Note HNO ID: [id number] Author: Junaid Dc PA-C Service: ? Author Type: Physician Election Assistant Type: Progress Notes Filed: 06/05/2023 8:48 AM Note Text: This note was created using Spotlime. Subjective Shamar Silva is a 38 year old female. HPI Presents with left groin pain over the past 2 days. She states she is also had some low back pain rating down her leg. She denies fever or chills. No vomiting. No chronic back issues previously. She noticed a bulge in her groin that gets worse when she stands up. No history of a hernia. Review of Systems Genitourinary: Left groin pain All other systems reviewed and are negative. PAST MEDICAL HISTORY Diagnosis Date Abnormal Pap smear of cervix ACUTE GASTRITIS W/O HEMORRHAGE 08/22/2005 Chlamydia 12/11/2013 Chlamydia infection affecting in first trimester 03/25/2016 Needs LOLA next visit. 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 loratadine (CLARITIN) 10 mg tablet Take 10 mg by mouth once daily. etonogestrel (NEXPLANON) 68 mg impl subdermal implant 1 Each by SUBDERMAL route one time only for 1 dose. 1 Each 0 fluticasone (FLONASE) 50 mcg/actuation nasal spray Use 2 Sprays in each nostril once daily. Rinse mouth after use. 1 Bottle 0 baclofen (LIORESAL) 10 mg tablet (Patient not taking: Reported on 06/04/2023) omeprazole (PRILOSEC) 20 mg capsule take 2 capsules by mouth once daily (Patient not taking: Reported on 11/06/2022) 60 capsule 0 No current facility-administered medications for this visit. PAST SURGICAL HISTORY Procedure Laterality Date ARTHROSCOPY KNEE DIAGNOSTIC W/WO SYNOVIAL BX SPX 08/01/2004 Arthroscopy, knee right, meniscal tear COLONOSCOPY GEN ANES 02/03/2021 Repeat at the age of 45/50 EGD 02/03/2021 KNEE ARTHROSCOPY/SURGERY 08/01/2010 surgery on left knee PAST SURGICAL HISTORY OF WISDOM TEETH VAGINOSCOPY 03/22/2014 FAMILY HISTORY Problem Relation Age of Onset other (HTN) Father Diabetes Maternal Grandmother Thyroid Maternal Grandfather Diabetes Maternal Grandfather Colon Cancer Paternal Grandmother Diabetes Paternal Grandmother Heart Paternal Grandmother other (cystic fibrosis [Other]) Paternal Grandmother other (ovarian cysts [Other]) Paternal Grandmother Social History Tobacco Use Smoking status: Never Smokeless tobacco: Never Substance Use Topics Alcohol use: Yes Comment: OCCASIONALLY, BUT NOT WHILE Drug use: No Objective BP 110/78 Pulse 95 Temp 37.3 ?C (99.1 ?F) (Tympanic) Resp 18 Wt 58.2 kg (128 lb 6.4 oz) LMP (LMP Unknown) SpO2 98% BMI 22.19 kg/m? Physical Exam Vitals reviewed. Constitutional: Appearance: Normal appearance. HENT: Head: Normocephalic and atraumatic. Abdominal: Comments: Patient has a mass in the left inguinal area. Minimally tender on palpation. Could be lipoma versus possible hernia. Skin: General: Skin is warm and dry. Neurological: Mental Status: She is alert. Assessment and Plan ASSESSMENT/PLAN: 1. Groin mass - ICD9: 789.39, ICD10: R19.09 Discussed with patient I do not have the resources here at [facility] to fully diagnose if it is a hernia versus fatty tumor. Discussed however if the bulge seems to be getting stuck in that area or if she is having any change in bowel movements, lack of passing gas, fever or chills really needs seen in the ER to rule out that its not incarcerated or strangulated. Otherwise follow-up with general surgery if the symptoms are not happening happening. - CONSULT TO GENERAL SURGERY Junaid Dc PA-C [facility] 06-05-2023 History of Presen t illness Narrative Images from the original note were not included. This note was created using NoteWriter. Subjective Shamar Silva is a 38 year old female. HPI Presents with left groin pain over the past 2 days. She states she is also had some low back pain rating down her leg. She denies fever or chills. No vomiting. No chronic back issues previously. She noticed a bulge in her groin that gets worse when she stands up. No history of a hernia. Review of Systems Genitourinary: Left groin pain All other systems reviewed and are negative. PAST MEDICAL HISTORY Diagnosis Date Abnormal Pap smear of cervix ACUTE GASTRITIS W/O HEMORRHAGE 08/22/2005 Chlamydia 12/11/2013 Chlamydia infection affecting in first trimester 03/25/2016 Needs LOLA next visit. 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 loratadine (CLARITIN) 10 mg tablet Take 10 mg by mouth once daily. etonogestrel (NEXPLANON) 68 mg impl subdermal implant 1 Each by SUBDERMAL route one time only for 1 dose. 1 Each 0 fluticasone (FLONASE) 50 mcg/actuation nasal spray Use 2 Sprays in each nostril once daily. Rinse mouth after use. 1 Bottle 0 baclofen (LIORESAL) 10 mg tablet (Patient not taking: Reported on 06/04/2023) omeprazole (PRILOSEC) 20 mg capsule take 2 capsules by mouth once daily (Patient not taking: Reported on 11/06/2022) 60 capsule 0 No current facility-administered medications for this visit. PAST SURGICAL HISTORY Procedure Laterality Date ARTHROSCOPY KNEE DIAGNOSTIC W/WO SYNOVIAL BX SPX 08/01/2004 Arthroscopy, knee right, meniscal tear COLONOSCOPY GEN ANES 02/03/2021 Repeat at the age of 45/50 EGD 02/03/2021 KNEE ARTHROSCOPY/SURGERY 08/01/2010 surgery on left knee PAST SURGICAL HISTORY OF WISDOM TEETH VAGINOSCOPY 03/22/2014 FAMILY HISTORY Problem Relation Age of Onset other (HTN) Father Diabetes Maternal Grandmother Thyroid Maternal Grandfather Diabetes Maternal Grandfather Colon Cancer Paternal Grandmother Diabetes Paternal Grandmother Heart Paternal Grandmother other (cystic fibrosis [Other]) Paternal Grandmother other (ovarian cysts [Other]) Paternal Grandmother Social History Tobacco Use Smoking status: Never Smokeless tobacco: Never Substance Use Topics Alcohol use: Yes Comment: OCCASIONALLY, BUT NOT WHILE Drug use: No Objective BP 110/78 Pulse 95 Temp 37.3 C (99.1 F) (Tympanic) Resp 18 Wt 58.2 kg (128 lb 6.4 oz) LMP (LMP Unknown) SpO2 98% BMI 22.19 kg/m Physical Exam Vitals reviewed. Constitutional: Appearance: Normal appearance. HENT: Head: Normocephalic and atraumatic. Abdominal: Comments: Patient has a mass in the left inguinal area. Minimally tender on palpation. Could be lipoma versus possible hernia. Skin: General: Skin is warm and dry. Neurological: Mental Status: She is alert. Assessment and Plan ASSESSMENT/PLAN: 1. Groin mass - ICD9: 789.39, ICD10: R19.09 Discussed with patient I do not have the resources here at [facility] to fully diagnose if it is a hernia versus fatty tumor. Discussed however if the bulge seems to be getting stuck in that area or if she is having any change in bowel movements, lack of passing gas, fever or chills really needs seen in the ER to rule out that its not incarcerated or strangulated. Otherwise follow-up with general surgery if the symptoms are not happening happening. - CONSULT TO GENERAL SURGERY Junaid Dc PA-C documented in this encounter [facility] 11-06-2022 Note HNO ID: [id number] Author: Junaid Dc PA-C Service: ? Author Type: Physician Election Assistant Type: Progress Notes Filed: 11/06/2022 1:16 PM Note Text: This note was created using NoteWriter. Subjective Shamar Silva is a 37 year old female. HPI Patient presents with a chief complaint of bilateral ear pain, neck soreness, sore throat, congestion and headache over 1 day. She was exposed to strep throat. 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 Her daughter is not feeling well today either. No fever that she knows of but she did take ibuprofen today. No diarrhea but has felt nauseous. She did a home COVID test but she does not think it was correct. It did come out negative. She states the test did not seem to be working correctly. Review of Systems Constitutional: Positive for fatigue. HENT: Positive for congestion, ear pain and sore throat. Respiratory: Negative for cough. Gastrointestinal: Positive for nausea. Negative for abdominal pain and diarrhea. Genitourinary: Negative. Musculoskeletal: Positive for myalgias. Skin: Negative. Neurological: Positive for headaches. All other systems reviewed and are negative. PAST MEDICAL HISTORY Diagnosis Date Abnormal Pap smear of cervix ACUTE GASTRITIS W/O HEMORRHAGE 08/22/2005 Chlamydia 12/11/2013 Chlamydia infection affecting in first trimester 03/25/2016 Needs LOLA next visit. 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 baclofen (LIORESAL) 10 mg tablet loratadine (CLARITIN) 10 mg tablet Take 10 mg by mouth once daily. etonogestrel (NEXPLANON) 68 mg impl subdermal implant 1 Each by SUBDERMAL route one time only for 1 dose. 1 Each 0 fluticasone (FLONASE) 50 mcg/actuation nasal spray Use 2 Sprays in each nostril once daily. Rinse mouth after use. 1 Bottle 0 omeprazole (PRILOSEC) 20 mg capsule take 2 capsules by mouth once daily (Patient not taking: Reported on 11/06/2022) 60 capsule 0 No current facility-administered medications for this visit. PAST SURGICAL HISTORY Procedure Laterality Date ARTHROSCOPY KNEE DIAGNOSTIC W/WO SYNOVIAL BX SPX 08/01/2004 Arthroscopy, knee right, meniscal tear COLONOSCOPY GEN ANES 02/03/2021 Repeat at the age of 45/50 EGD 02/03/2021 KNEE ARTHROSCOPY/SURGERY 08/01/2010 surgery on left knee PAST SURGICAL HISTORY OF WISDOM TEETH VAGINOSCOPY 03/22/2014 FAMILY HISTORY Problem Relation Age of Onset other (HTN) Father Diabetes Maternal Grandmother Thyroid Maternal Grandfather Diabetes Maternal Grandfather Colon Cancer Paternal Grandmother Diabetes Paternal Grandmother Heart Paternal Grandmother other (cystic fibrosis [Other]) Paternal Grandmother other (ovarian cysts [Other]) Paternal Grandmother Social History Tobacco Use Smoking status: Never Smokeless tobacco: Never Substance Use Topics Alcohol use: Yes Comment: OCCASIONALLY, BUT NOT WHILE Drug use: No Objective BP 122/70 Pulse 82 Temp 36.8 ?C (98.2 ?F) (Tympanic) Resp 16 Wt 62.7 kg (138 lb 3.2 oz) LMP (LMP Unknown) SpO2 98% BMI 23.89 kg/m? Physical Exam Vitals reviewed. Constitutional: Appearance: Normal appearance. HENT: Head: Normocephalic and atraumatic. Right Ear: Tympanic membrane, ear canal and external ear normal. Left Ear: Tympanic membrane, ear canal and external ear normal. Nose: Nose normal. Mouth/Throat: Mouth: Mucous membranes are moist. Pharynx: Oropharynx is clear. Cardiovascular: Rate and Rhythm: Normal rate and regular rhythm. Heart sounds: Normal heart sounds. Pulmonary: Effort: Pulmonary effort is normal. Breath sounds: Normal breath sounds. Musculoskeletal: Cervical back: Neck supple. Lymphadenopathy: Cervical: No cervical adenopathy. Skin: General: Skin is warm and dry. Neurological: General: No focal deficit present. Mental Status: She is alert. Assessment and Plan ASSESSMENT/PLAN: 1. Sore throat - ICD9: 462, ICD10: J02.9 (primary diagnosis) - Alere Strep Test neg, no culture pending 2. Viral URI with cough - ICD9: 465.9, ICD10: J06.9 - Discussed viral etiology and rationale for treatment. - Symptomatic treatment with prn analgesia - Supportive care with fluids and rest - COVID WITH FLUA+B, ROUTINE Junaid Dc PA-C [facility] 11-06-2022 History of Presen t illness Narrative This note was created using NoteWriter. Subjective Shamar Silva is a 37 year old female. HPI Patient presents with a chief complaint of bilateral ear pain, neck soreness, sore throat, congestion and headache over 1 day. She was exposed to strep throat. 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 Her daughter is not feeling well today either. No fever that she knows of but she did take ibuprofen today. No diarrhea but has felt nauseous. She did a home COVID test but she does not think it was correct. It did come out negative. She states the test did not seem to be working correctly. Review of Systems Constitutional: Positive for fatigue. HENT: Positive for congestion, ear pain and sore throat. Respiratory: Negative for cough. Gastrointestinal: Positive for nausea. Negative for abdominal pain and diarrhea. Genitourinary: Negative. Musculoskeletal: Positive for myalgias. Skin: Negative. Neurological: Positive for headaches. All other systems reviewed and are negative. PAST MEDICAL HISTORY Diagnosis Date Abnormal Pap smear of cervix ACUTE GASTRITIS W/O HEMORRHAGE 08/22/2005 Chlamydia 12/11/2013 Chlamydia infection affecting in first trimester 03/25/2016 Needs LOLA next visit. 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 baclofen (LIORESAL) 10 mg tablet loratadine (CLARITIN) 10 mg tablet Take 10 mg by mouth once daily. etonogestrel (NEXPLANON) 68 mg impl subdermal implant 1 Each by SUBDERMAL route one time only for 1 dose. 1 Each 0 fluticasone (FLONASE) 50 mcg/actuation nasal spray Use 2 Sprays in each nostril once daily. Rinse mouth after use. 1 Bottle 0 omeprazole (PRILOSEC) 20 mg capsule take 2 capsules by mouth once daily (Patient not taking: Reported on 11/06/2022) 60 capsule 0 No current facility-administered medications for this visit. PAST SURGICAL HISTORY Procedure Laterality Date ARTHROSCOPY KNEE DIAGNOSTIC W/WO SYNOVIAL BX SPX 08/01/2004 Arthroscopy, knee right, meniscal tear COLONOSCOPY GEN ANES 02/03/2021 Repeat at the age of 45/50 EGD 02/03/2021 KNEE ARTHROSCOPY/SURGERY 08/01/2010 surgery on left knee PAST SURGICAL HISTORY OF WISDOM TEETH VAGINOSCOPY 03/22/2014 FAMILY HISTORY Problem Relation Age of Onset other (HTN) Father Diabetes Maternal Grandmother Thyroid Maternal Grandfather Diabetes Maternal Grandfather Colon Cancer Paternal Grandmother Diabetes Paternal Grandmother Heart Paternal Grandmother other (cystic fibrosis [Other]) Paternal Grandmother other (ovarian cysts [Other]) Paternal Grandmother Social History Tobacco Use Smoking status: Never Smokeless tobacco: Never Substance Use Topics Alcohol use: Yes Comment: OCCASIONALLY, BUT NOT WHILE Drug use: No Objective BP 122/70 Pulse 82 Temp 36.8 C (98.2 F) (Tympanic) Resp 16 Wt 62.7 kg (138 lb 3.2 oz) LMP (LMP Unknown) SpO2 98% BMI 23.89 kg/m Physical Exam Vitals reviewed. Constitutional: Appearance: Normal appearance. HENT: Head: Normocephalic and atraumatic. Right Ear: Tympanic membrane, ear canal and external ear normal. Left Ear: Tympanic membrane, ear canal and external ear normal. Nose: Nose normal. Mouth/Throat: Mouth: Mucous membranes are moist. Pharynx: Oropharynx is clear. Cardiovascular: Rate and Rhythm: Normal rate and regular rhythm. Heart sounds: Normal heart sounds. Pulmonary: Effort: Pulmonary effort is normal. Breath sounds: Normal breath sounds. Musculoskeletal: Cervical back: Neck supple. Lymphadenopathy: Cervical: No cervical adenopathy. Skin: General: Skin is warm and dry. Neurological: General: No focal deficit present. Mental Status: She is alert. Assessment and Plan ASSESSMENT/PLAN: 1. Sore throat - ICD9: 462, ICD10: J02.9 (primary diagnosis) - Alere Strep Test neg, no culture pending 2. Viral URI with cough - ICD9: 465.9, ICD10: J06.9 - Discussed viral etiology and rationale for treatment. - Symptomatic treatment with prn analgesia - Supportive care with fluids and rest - COVID WITH FLUA+B, ROUTINE Junaid Dc PA-C documented in this encounter [facility] 07-18-2022 History of Presen t illness Narrative CC: Patient presents with: Headache: nausea, vomiting x this am HPI: Shamar Silva is a 37 year old female who presents to the office with complaint of headache since this morning. Symptoms are staying the same. Associated symptoms includes not sleeping well, nausea, and vomiting . Denies fever, dyspnea, and diarrhea. Treatments tried include nothing so far. with no relief of symptoms. Sick contacts: unknown. History of asthma, frequent episodes of bronchitis, chronic bronchitis, bronchiectasis or COPD: No Smoker: No Seasonal/environmental allergies: No The ROS is otherwise negative. The patient's pmh, medications, allergies, and past visits are reviewed. PHYSICAL EXAM: Pulse 114 Temp 37.3 C (99.2 F) Resp 18 Wt 65.8 kg (145 lb) LMP 10/20/2020 (Approximate) SpO2 97% BMI 25.06 kg/m General appearance: alert, cooperative, pleasant, in no acute distress Head: Normocephalic Eyes: EOM's intact, conjunctiva pink and moist, no icterus, sclera white, non-injected Ears: Right ear: External ear/canal- Normal, TM - clear with good landmarks. Left ear: External ear/canal- Normal, TM - clear with good landmarks Oropharynx:moist without lesions, No erythema, exudates or tonsillar hypertrophy. Heart: Negative. RRR without obvious murmur, gallop, or rubs. No ectopy. Lungs: clear to auscultation, without rales or wheeze, good air exchange PAST MEDICAL HISTORY Diagnosis Date Abnormal Pap smear of cervix ACUTE GASTRITIS W/O HEMORRHAGE 08/22/2005 Chlamydia 12/11/2013 Chlamydia infection affecting in first trimester 03/25/2016 Needs LOLA next visit. _JV LGSIL (low grade squamous intraepithelial dysplasia) 02/15/14 Migraine, unspecified, with intractable migraine, so stated, without mention of status migrainosus Migraine PAST SURGICAL HISTORY Procedure Laterality Date ARTHROSCOPY KNEE DIAGNOSTIC W/WO SYNOVIAL BX SPX 08/01/2004 Arthroscopy, knee right, meniscal tear COLONOSCOPY GEN ANES 02/03/2021 Repeat at the age of 45/50 EGD 02/03/2021 KNEE ARTHROSCOPY/SURGERY 08/01/2010 surgery on left knee PAST SURGICAL HISTORY OF WISDOM TEETH VAGINOSCOPY 03/22/2014 ALLERGIES Morphine MEDICATIONS omeprazole (PRILOSEC) 20 mg capsule^take 2 capsules by mouth once daily^Disp: 60 capsule^Rfl: 0 loratadine (CLARITIN) 10 mg tablet^Take 10 mg by mouth once daily.^Disp: ^Rfl: etonogestrel (NEXPLANON) 68 mg impl subdermal implant^1 Each by SUBDERMAL route one time only for 1 dose.^Disp: 1 Each^Rfl: 0 fluticasone (FLONASE) 50 mcg/actuation nasal spray^Use 2 Sprays in each nostril once daily. Rinse mouth after use.^Disp: 1 Bottle^Rfl: 0 oseltamivir (TAMIFLU) 75 mg capsule^Take 1 capsule by mouth twice daily for 5 days.^Disp: 10 capsule^Rfl: 0 ondansetron orally disintegrating (ZOFRAN ODT) 4 mg disintegrating tablet^Take 1 tablet by mouth every 8 hours as needed for nausea/vomiting for up to 4 days.^Disp: 12 tablet^Rfl: 0 FAMILY HISTORY Problem Relation Age of Onset other (HTN) Father Diabetes Maternal Grandmother Thyroid Maternal Grandfather Diabetes Maternal Grandfather Colon Cancer Paternal Grandmother Diabetes Paternal Grandmother Heart Paternal Grandmother other (cystic fibrosis [Other]) Paternal Grandmother other (ovarian cysts [Other]) Paternal Grandmother Social History Tobacco Use Smoking status: Never Smokeless tobacco: Never Substance Use Topics Alcohol use: Yes Comment: OCCASIONALLY, BUT NOT WHILE Drug use: No ASSESSMENT/PLAN: 1. Nausea and vomiting, unspecified vomiting type - ICD9: 787.01, ICD10: R11.2 (primary diagnosis) - ONDANSETRON 4 MG DISINTEGRATING TABLET - ONDANSETRON 8 MG DISINTEGRATING TABLET 2. URI, acute - ICD9: 465.9, ICD10: J06.9 Tamiflu, tylenol PRN Prescription instructions reviewed with patient as applicable. Potential red flag symptoms discussed with the patient. Reviewed appropriate action plan to take if red flag symptoms occur. Patient agreeable to treatment plan. Kathia Moore APRN.ELVIA documented in this encounter [facility] 05-05-2022 Miscellaneous Notes phoned patient to let her know a annual follow up appt is needed and to go over CT scan results. left message to call back to make an appt Zarina Massey LPN documented in this encounter [facility] 04-30-2022 Instructions Veronica Edward APRN.CNP - 04/30/2022 7:34 AM EDT 1.) Start Macrobid, take with food. 2.) Urine will be sent off for culture. 3.) Increase water intake, may use Azo if needed for urinary burning. 4.) Changes in symptoms recommend follow up. 5.) Follow up pending test results or sooner as needed. documented in this encounter [facility] 04-30-2022 History of Presen t illness Narrative This is a 37 year old female who presents today with: Patient presents with: UTI: Possible UTI HISTORY OF PRESENT ILLNESS: Shamar Silva is a 37 year old female. Patient presents with: UTI: Possible UTI Patient of Dr. Rosa here in the office for concerns for UTI. Dysuria started about 2 days ago. Increase in urinary frequency. Lower abdominal discomfort. No fever/chills or flank pain. PAST MEDICAL HISTORY: PAST MEDICAL HISTORY Diagnosis Date Abnormal Pap smear of cervix ACUTE GASTRITIS W/O HEMORRHAGE 08/22/2005 Chlamydia 12/11/2013 Chlamydia infection affecting in first trimester 03/25/2016 Needs LOLA next visit. _JV LGSIL (low grade squamous intraepithelial dysplasia) 02/15/14 Migraine, unspecified, with intractable migraine, so stated, without mention of status migrainosus Migraine PAST SURGICAL HISTORY Procedure Laterality Date COLONOSCOPY GEN ANES 02/03/2021 Repeat at the age of 45/50 EGD 02/03/2021 KNEE ARTHROSCOPY/SURGERY 08/01/2010 surgery on left knee KNEE SCOPE,DIAGNOSTIC 08/01/2004 Arthroscopy, knee right, meniscal tear PAST SURGICAL HISTORY OF WISDOM TEETH VAGINOSCOPY 03/22/2014 ALLERGIES Morphine MEDICATIONS Current Outpatient Medications Medication Sig omeprazole (PRILOSEC) 20 mg capsule take 2 capsules by mouth once daily benzonatate (TESSALON PERLES) 100 mg capsule Take 1 capsule by mouth three times daily as needed for cough. albuterol HFA (PROAIR HFA) 90 mcg/actuation inhaler Inhale 2 Puffs as instructed every 6 hours as needed. loratadine (CLARITIN) 10 mg tablet Take 10 mg by mouth once daily. etonogestrel (NEXPLANON) 68 mg impl subdermal implant 1 Each by SUBDERMAL route one time only for 1 dose. fluticasone (FLONASE) 50 mcg/actuation nasal spray Use 2 Sprays in each nostril once daily. Rinse mouth after use. No current facility-administered medications for this visit. FAMILY HISTORY Problem Relation Age of Onset other (HTN) Father Diabetes Maternal Grandmother Thyroid Maternal Grandfather Diabetes Maternal Grandfather Colon Cancer Paternal Grandmother Diabetes Paternal Grandmother Heart Paternal Grandmother other (cystic fibrosis [Other]) Paternal Grandmother other (ovarian cysts [Other]) Paternal Grandmother Social History Tobacco Use Smoking status: Never Smokeless tobacco: Never Substance Use Topics Alcohol use: Yes Comment: OCCASIONALLY, BUT NOT WHILE Drug use: No REVIEW OF SYSTEMS GENERAL: No weight loss, malaise or fevers/chills HEENT: Negative for frequent or significant headaches, No changes in hearing or vision. NECK: Negative for lumps, goiter, pain and significant neck swelling RESPIRATORY: Negative for cough, hemoptysis, wheezing, dyspnea or shortness of breath CARDIOVASCULAR: Negative for chest pain, leg swelling, orthopnea, or palpitations GI: No nausea, vomiting, or diarrhea/constipation. No hematochezia/melena. No heartburn or reflux symptoms. : + Dysuria MUSCULOSKELETAL: Negative for joint pain or swelling. SKIN: Negative for lesions, rash, and itching ENDOCRINE: Negative for cold or heat intolerance, polyuria, polydipsia and goiter NEURO: No history of headaches, syncope, paralysis, seizures or tremors MOOD: Negative for depression, anxiety, or suicidal ideation. EXAM: BP 106/76 Pulse 103 Resp 16 Wt 64 kg (141 lb) LMP 10/20/2020 (Approximate) SpO2 97% BMI 24.37 kg/m PHYSICAL EXAM: General Appearance: Well appearing, alert, in no acute distress, well-hydrated, well nourished. Skin: Skin color, texture, turgor normal, no suspicious rashes or lesions. Head: Normocephalic, no masses, lesions, tenderness or abnormalities. Eyes: Anicteric sclera. Extraocular movements are intact. Lungs: Lungs clear to auscultation. No wheezing, rhonchi, rales. Heart: RRR without murmur, gallop, or rubs. No ectopy. Abdomen: Abdomen soft. Bowel sounds normal. No masses, organomegaly, Negative CVA tenderness. + Suprapubic fullness with palpation. Extremities: No deformities, edema, skin discoloration, clubbing or cyanosis. Good capillary refill. Peripheral Pulses: Normal, Capillary refill <2secs, strong peripheral pulses, Pulses palpable. Neurologic: Gait normal. Sensation grossly intact.. UA: WNL ASSESSMENT/PLAN: 1. Acute cystitis without hematuria - ICD9: 595.0, ICD10: N30.00 - Will treat for UTI with macribid. - Send urine off for culture. - Increase water intake. - URINE CULTURE - NITROFURANTOIN MONOHYDRATE & MACROCRYSTAL 100 MG ORAL CAP Follow-up pending test results or sooner as needed. Discussed treatment plan and patient voices understanding. Patient's questions answered appropriately. Medications and potential side effects were discussed and patient voices understanding. Veronica Edward APRN.CNP This note was partially generated using [employer] voice recognition system. Note was reviewed for accuracy. There may be minor misspellings or grammar miscues with [employer] voice recognition. documented in this encounter [facility] 04-28-2022 Miscellaneous Notes Patient was established with Sandra and is unable to travel is why request is made. Patient is scheduled with Veronica Clayton Tuesday. Patient has not been seen in almost a year and a half and not by PCP office in over 3.5 years. She would need an appointment to discuss this. Thank you Dianna Caldwell APRN.CNP Spoke with patient, was established with Sandra Batista but she is no longer in [place], patient would like new referral to be sent to Dr Newman. Patient calling asking for a referral to a Gastro doctor with [facility] since Sandra Batista is no longer in [place]. documented in this encounter [facility] 04-28-2022 Miscellaneous Notes Patient notified. Could possibly be. Cut down the prilosec to 20 mgs and see Pt called in and reports she had her appendix removed recently, and states she is off all the highly potent medication. She reports she still feels 'floaty' and tired. She was asking if it could be the Omeprazole 40 mg causing that and if she should decrease the does. She reports the only other medication she take is Zyrtec. Please call and advise. documented in this encounter [facility] 04-19-2022 Miscellaneous Notes Noted and agree Patient calling she began this morning with nausea, dry heaves, feels like motion sickness,riding rosey car to long, not dizzy, pain in her head not a full blown headache, right sided abdominal discomfort that has moved up under the rib cage area, loose stool, fever. She has been able to keep water down just does not feel like eating anything. Advised to go to [facility] care for evaluation. documented in this encounter [facility] 04-19-2022 History of Presen t illness Narrative Express Care Triage Note: Patient presents to the express care with complaint of nausea and RLQ abdominal pain. It hurts to bounce or take deep breaths. She is teary and uncomfortable walking. She will go to [facility] ER for further evaluation of symptoms suspicious for appendicitis. documented in this encounter [facility] 01-26-2022 Miscellaneous Notes RX INSTRUCTIONS: Patient aware RX will be sent to pharmacy. No need to notify patient. Last OV: 03/26/21 Last refill: 11/18/21 With 60 and 1 refills Follow up: No F/U appt scheduled at this time Cherelle Chandler MA documented in this encounter [facility] 11-18-2021 Miscellaneous Notes PATIENT NOTIFIED OF SAME. Please call patient the Nexium is not cover by her insurance - I reordered the omeprazole 20mg ( take 2 capsules ) for a total dose omeprazole 40mg once daily on empty stomach wait 30 min before eating. Hope she feels better - let me know if there is a problem with this script and insurance. Sandra Batista APRN.CNP Patient calls to ask provider recommendation on medication to take for stomach inflammation and burning sensation of stomach up into the middle of chest (patient reports it feels like indigestion). Patient reports that often when she gets ill it results with a flare up of indigestion . Denies chest pain or SOB. She has been off work for 2 weeks d/t Covid and she is asking for a prescription be sent in to [facility]. She usually gets OTC Nexium but right now can't afford it and won't have a paycheck for another two weeks to be able to. Please review and advise, Karen Weems RN documented in this encounter [facility] documented as of this encounter (statuses as of 11/18/2021) [facility] History of Past illness Narrative* Problem Noted Date Resolved Date Encounter for supervision of normal 11/03/2020 Overview: Girl on us- Chlamydia infection affecting in first trimester 03/25/2016 11/03/2020 Overview: Needs LOLA next visit. _JV Patient requested diagnostic testing 02/19/2016 07/28/2016 Overview: 02/19/2016Pt desires nuchal ultrasound with sequential testing.TKRN Small for gestational age 0411/10/20112011 Overview: SM- weekly NSTs, kick counts, fu growth 3 weeks Normal 11/10/2011 01/14/2012 Unspecified high-risk 04/28/2011 10/21/2011 Acute gastritis without mention of hemorrhage 11/10/2011 Irregular menstrual cycle 08/22/20052011 documented as of this encounter (statuses as of 01/26/2022) [facility] History of Past illness Narrative* Problem Noted Date Resolved Date Encounter for supervision of normal 11/03/2020 Overview: Girl on us- Chlamydia infection affecting in first trimester 03/25/2016 11/03/2020 Overview: Needs LOLA next visit. _JV Patient requested diagnostic testing 02/19/2016 07/28/2016 Overview: 02/19/2016Pt desires nuchal ultrasound with sequential testing.TKRN Small for gestational age 0411/10/20112011 Overview: SM- weekly NSTs, kick counts, fu growth 3 weeks Normal 11/10/2011 01/14/2012 Unspecified high-risk 04/28/2011 10/21/2011 Acute gastritis without mention of hemorrhage 11/10/2011 Irregular menstrual cycle 08/22/20052011 documented as of this encounter (statuses as of 04/19/2022) [facility] History of Past illness Narrative* Problem Noted Date Resolved Date Encounter for supervision of normal 11/03/2020 Overview: Girl on us- Chlamydia infection affecting in first trimester 03/25/2016 11/03/2020 Overview: Needs LOLA next visit. _JV Patient requested diagnostic testing 02/19/2016 07/28/2016 Overview: 02/19/2016Pt desires nuchal ultrasound with sequential testing.TKRN Small for gestational age 0411/10/20112011 Overview: SM- weekly NSTs, kick counts, fu growth 3 weeks Normal 11/10/2011 01/14/2012 Unspecified high-risk 04/28/2011 10/21/2011 Acute gastritis without mention of hemorrhage 11/10/2011 Irregular menstrual cycle 08/22/20052011 documented as of this encounter (statuses as of 04/28/2022) [facility] History of Past illness Narrative* Problem Noted Date Resolved Date Encounter for supervision of normal 11/03/2020 Overview: Girl on us- Chlamydia infection affecting in first trimester 03/25/2016 11/03/2020 Overview: Needs LOLA next visit. _JV Patient requested diagnostic testing 02/19/2016 07/28/2016 Overview: 02/19/2016Pt desires nuchal ultrasound with sequential testing.TKRN Small for gestational age 0411/10/20112011 Overview: SM- weekly NSTs, kick counts, fu growth 3 weeks Normal 11/10/2011 01/14/2012 Unspecified high-risk 04/28/2011 10/21/2011 Acute gastritis without mention of hemorrhage 11/10/2011 Irregular menstrual cycle 08/22/20052011 documented as of this encounter (statuses as of 04/30/2022) [facility] History of Past illness Narrative* Problem Noted Date Resolved Date Encounter for supervision of normal 11/03/2020 Overview: Girl on us- Chlamydia infection affecting in first trimester 03/25/2016 11/03/2020 Overview: Needs LOLA next visit. _JV Patient requested diagnostic testing 02/19/2016 07/28/2016 Overview: 02/19/2016Pt desires nuchal ultrasound with sequential testing.TKRN Small for gestational age 0411/10/20112011 Overview: SM- weekly NSTs, kick counts, fu growth 3 weeks Normal 11/10/2011 01/14/2012 Unspecified high-risk 04/28/2011 10/21/2011 Acute gastritis without mention of hemorrhage 11/10/2011 Irregular menstrual cycle 08/22/20052011 documented as of this encounter (statuses as of 04/30/2022) [facility] History of Past illness Narrative* Problem Noted Date Resolved Date Encounter for supervision of normal 11/03/2020 Overview: Girl on us- Chlamydia infection affecting in first trimester 03/25/2016 11/03/2020 Overview: Needs LOLA next visit. _JV Patient requested diagnostic testing 02/19/2016 07/28/2016 Overview: 02/19/2016Pt desires nuchal ultrasound with sequential testing.TKRN Small for gestational age 0411/10/20112011 Overview: SM- weekly NSTs, kick counts, fu growth 3 weeks Normal 11/10/2011 01/14/2012 Unspecified high-risk 04/28/2011 10/21/2011 Acute gastritis without mention of hemorrhage 11/10/2011 Irregular menstrual cycle 08/22/20052011 documented as of this encounter (statuses as of 05/03/2022) [facility] History of Past illness Narrative* Problem Noted Date Resolved Date Encounter for supervision of normal 11/03/2020 Overview: Girl on us- Chlamydia infection affecting in first trimester 03/25/2016 11/03/2020 Overview: Needs LOLA next visit. _JV Patient requested diagnostic testing 02/19/2016 07/28/2016 Overview: 02/19/2016Pt desires nuchal ultrasound with sequential testing.TKRN Small for gestational age 0411/10/20112011 Overview: SM- weekly NSTs, kick counts, fu growth 3 weeks Normal 11/10/2011 01/14/2012 Unspecified high-risk 04/28/2011 10/21/2011 Acute gastritis without mention of hemorrhage 11/10/2011 Irregular menstrual cycle 08/22/20052011 documented as of this encounter (statuses as of 06/15/2022) [facility] History of Past illness Narrative* Problem Noted Date Resolved Date Encounter for supervision of normal 11/03/2020 Overview: Girl on us- Chlamydia infection affecting in first trimester 03/25/2016 11/03/2020 Overview: Needs LOLA next visit. _JV Patient requested diagnostic testing 02/19/2016 07/28/2016 Overview: 02/19/2016Pt desires nuchal ultrasound with sequential testing.TKRN Small for gestational age 0411/10/20112011 Overview: SM- weekly NSTs, kick counts, fu growth 3 weeks Normal 11/10/2011 01/14/2012 Unspecified high-risk 04/28/2011 10/21/2011 Acute gastritis without mention of hemorrhage 11/10/2011 Irregular menstrual cycle 08/22/20052011 documented as of this encounter (statuses as of 07/18/2022) [facility] History of Past illness Narrative* Problem Noted Date Resolved Date Encounter for supervision of normal 11/03/2020 Overview: Girl on us- Chlamydia infection affecting in first trimester 03/25/2016 11/03/2020 Overview: Needs LOLA next visit. _JV Patient requested diagnostic testing 02/19/2016 07/28/2016 Overview: 02/19/2016Pt desires nuchal ultrasound with sequential testing.TKRN Small for gestational age 0411/10/20112011 Overview: SM- weekly NSTs, kick counts, fu growth 3 weeks Normal 11/10/2011 01/14/2012 Unspecified high-risk 04/28/2011 10/21/2011 Acute gastritis without mention of hemorrhage 11/10/2011 Irregular menstrual cycle 08/22/20052011 documented as of this encounter (statuses as of 11/06/2022) [facility] History of Past illness Narrative* Problem Noted Date Diagnosed Date Resolved Date Encounter for supervision of normal 08/10/19 17 11/03/2020 Overview: Girl on us- Chlamydia infection affectin g in first trimester 03/25/2016 11/03/2020 Overview: Needs LOLA next visit. _JV Patient requested diagnostic testing 02/19/2016 07/28/2016 Overview: 02/19/2016Pt desires nuchal ultrasound with sequential testing.TKRN Small for gestational age 0411/10/2011 Overview: SM- weekly NSTs, kick counts, fu growth 3 weeks Normal 11/10/2011 01/14/2012 Unspecified high-risk 04/28/2011 10/21/2011 Acute gastritis without mention of hemorrhage 08/22/19 06 11/10/2011 Irregular menstrual cycle 08/22/2005 documented as of this encounter (statuses as of 06/06/2023) [facility] History of Past illness Narrative* Problem Noted Date Diagnosed Date Resolved Date Encounter for supervision of normal 08/10/19 17 11/03/2020 Overview: Girl on us- Chlamydia infection affectin g in first trimester 03/25/2016 11/03/2020 Overview: Needs LOLA next visit. _JV Patient requested diagnostic testing 02/19/2016 07/28/2016 Overview: 02/19/2016Pt desires nuchal ultrasound with sequential testing.TKRN Small for gestational age 0411/10/2011 Overview: SM- weekly NSTs, kick counts, fu growth 3 weeks Normal 11/10/2011 01/14/2012 Unspecified high-risk 04/28/2011 10/21/2011 Acute gastritis without mention of hemorrhage 08/22/19 06 11/10/2011 Irregular menstrual cycle 08/22/2005 documented as of this encounter (statuses as of 06/10/2023) [facility] History of Past illness Narrative* Problem Noted Date Diagnosed Date Resolved Date Encounter for supervision of normal 08/10/19 17 11/03/2020 Overview: Girl on us- Chlamydia infection affectin g in first trimester 03/25/2016 11/03/2020 Overview: Needs LOLA next visit. _JV Patient requested diagnostic testing 02/19/2016 07/28/2016 Overview: 02/19/2016Pt desires nuchal ultrasound with sequential testing.TKRN Small for gestational age 0411/10/2011 Overview: SM- weekly NSTs, kick counts, fu growth 3 weeks Normal 11/10/2011 01/14/2012 Unspecified high-risk 04/28/2011 10/21/2011 Acute gastritis without mention of hemorrhage 08/22/19 06 11/10/2011 Irregular menstrual cycle 08/22/2005 documented as of this encounter (statuses as of 06/28/2023) [facility] History of Past illness Narrative* Problem Noted Date Diagnosed Date Resolved Date Encounter for supervision of normal 08/10/19 17 11/03/2020 Overview: Girl on us- Chlamydia infection affectin g in first trimester 03/25/2016 11/03/2020 Overview: Needs LOLA next visit. _JV Patient requested diagnostic testing 02/19/2016 07/28/2016 Overview: 02/19/2016Pt desires nuchal ultrasound with sequential testing.TKRN Small for gestational age 0411/10/2011 Overview: SM- weekly NSTs, kick counts, fu growth 3 weeks Normal 11/10/2011 01/14/2012 Unspecified high-risk 04/28/2011 10/21/2011 Acute gastritis without mention of hemorrhage 08/22/19 06 11/10/2011 Irregular menstrual cycle 08/22/2005 documented as of this encounter (statuses as of 07/05/2023) [facility] History of Past illness Narrative* Problem Noted Date Diagnosed Date Resolved Date Encounter for supervision of normal 08/10/19 17 11/03/2020 Overview: Girl on us- Chlamydia infection affectin g in first trimester 03/25/2016 11/03/2020 Overview: Needs LOLA next visit. _JV Patient requested diagnostic testing 02/19/2016 07/28/2016 Overview: 02/19/2016Pt desires nuchal ultrasound with sequential testing.TKRN Small for gestational age 0411/10/2011 Overview: SM- weekly NSTs, kick counts, fu growth 3 weeks Normal 11/10/2011 01/14/2012 Unspecified high-risk 04/28/2011 10/21/2011 Acute gastritis without mention of hemorrhage 08/22/1911/10/2011 Irregular menstrual cycle 08/22/2005 documented as of this encounter (statuses as of 09/15/2023) [facility] RLQ abdominal pain- Primary Abdominal pain, right lower quadrant [facility] Acute cystitis without hematuria- Primary Acute cystitis [facility] Diagnosis Nausea and vomiting, unspecified vomiting type- Primary URI, acute Acute upper respiratory infections of unspecified site [facility] Diagnosis Sore throat- Primary Acute pharyngitis Viral URI with cough Acute upper respiratory infections of unspecified site [facility] Diagnosis Groin mass- Primary Abdominal or pelvic swelling, mass or lump, unspecified site [facility] Diagnosis Groin mass Abdominal or pelvic swelling, mass or lump, unspecified site [facility] Diagnosis Rib injury- Primary Sprain of ribs Left wrist pain Pain in joint, forearm [facility] Diagnosis Enlarged lymph nodes- Primary Enlargement of lymph nodes Groin mass Abdominal or pelvic swelling, mass or lump, unspecified site Enlarged lymph nodes Enlargement of lymph nodes Groin mass Abdominal or pelvic swelling, mass or lump, unspecified site [facility] Diagnostic Procedure Only (Routine) - Pending Review Specialty Diagnoses / Procedures Referred By Contac t Referred To Contact US IMAGING Diagnoses Groin mass Procedures US SOFT TISSUE PELVIS US PELVIC NONOBSTETRIC IMAGE DCMTN LIMITED/F/U Davon Carpenter MD [address] [place] [address] [place] [address] Referral ID Status Reason Start Date Expiration Date Visits Requested Visits Authorized [id number] Pending Review Auto-Generat ed Referral 07/09/2024 1 1 [facility] Diagnostic Procedure Only (Urgent) - Closed Specialty Diagnoses / Procedures Referred By Contac t Referred To Contact XR IMAGING Diagnoses Left wrist pain Procedures XR WRIST INJURY 4V PA/LAT/OBL/SCAPH LEFT RADEX WRIST COMPLETE MINIMUM 3 VIEWS Junaid Dc PA-C [address] [place] [address] [place] [address] Referral ID Status Reason Start Date Expiration Date V isits Requested Visits Authorized [id number] Closed Auto-Generate d Referral 06/28/2023 07/27/2024 1 1 * Diagnostic Procedure Only (Urgent) - Closed Specialty Diagnoses / Procedures Referred By Contac t Referred To Contact XR IMAGING Diagnoses Rib injury Procedures XR RIBS/CHEST 3V AP RIB/OBLS/CXR LEFT RADEX RIBS UNI W/POSTEROANT CH MINIMUM 3 VIEWS Junaid Dc PA-C [address] [place] [address] [place] [address] Referral ID Status Reason Start Date Expiration Date V isits Requested Visits Authorized [id number] Closed Auto-Generate d Referral 06/28/2023 07/27/2024 1 1 [facility] Health Concerns Infection Onset Date Last Indicated Resolved Time COVID-19 Confirmed 11/02/2021 11/02/2021 Infection Onset Date Last Indicated Resolved Time COVID-19 Rule-Out 07/18/2022 07/18/2022 Infection Onset Date Last Indicated Resolved Time COVID-19 Rule-Out 11/06/2022 11/06/2022 Medications Administered Section Inactive Administered Medications - up to 3 most recent administrations Medication Order MAR Action Action Date Dose Rate Site ondansetron orally disintegrating 8 mg tab(s) (ZOFRAN ODT) 8 mg, ORAL, ONCE, 1 dose, On 07/18/22 at 1500, Place tablet on tongue and allow to dissolve; do not chew. Open packaging using dry hands; do not push tablet through packaging. Given 07/18/2022 2:38 PM EST 8 mg Reason for Referral Specialty Diagnoses / Procedures Referred By Emma figueroa Referred To Contact General Surgery Diagnoses Groin mass Procedures CONSULT TO GENERAL SURGERY OFFICE/OUTPATIENT [facility] 60-74 MINUTES Junaid Dc PA-C [address] [place] [address] Referral ID Status Reason Start Date Expiration Date Visits Requested Visits Authorized [id number] Authorized PCP Requested Referral 06/04/2023 06/03/2024 1 1 Summary Purpose Family History No Family History Records Found Advance Directives No Advanced Directives Records Found Additional Source Comments Source Comments (unrecognize d section and content) In the event this informatio n is protected by the Federal Confidentiality of Alcohol and Drug Abuse Patient Records regulations: The Federal rules restrict any use of the information to criminally investigate or prosecute any alcohol or drug abuse patient.[facility] the event this information is protected by the Federal Confidentiality of Alcohol and Drug Abuse Patient Records regulations: The Federal rules restrict any use of the information to criminally investigate or prosecute any alcohol or drug abuse patient.[facility] the event this information is protected by the Federal Confidentiality of Alcohol and Drug Abuse Patient Records regulations: The Federal rules restrict any use of the information to criminally investigate or prosecute any alcohol or drug abuse patient.[facility] the event this information is protected by the Federal Confidentiality of Alcohol and Drug Abuse Patient Records regulations: The Federal rules restrict any use of the information to criminally investigate or prosecute any alcohol or drug abuse patient.[facility] the event this information is protected by the Federal Confidentiality of Alcohol and Drug Abuse Patient Records regulations: The Federal rules restrict any use of the information to criminally investigate or prosecute any alcohol or drug abuse patient.[facility] the event this information is protected by the Federal Confidentiality of Alcohol and Drug Abuse Patient Records regulations: The Federal rules restrict any use of the information to criminally investigate or prosecute any alcohol or drug abuse patient.[facility] the event this information is protected by the Federal Confidentiality of Alcohol and Drug Abuse Patient Records regulations: The Federal rules restrict any use of the information to criminally investigate or prosecute any alcohol or drug abuse patient.[facility] the event this information is protected by the Federal Confidentiality of Alcohol and Drug Abuse Patient Records regulations: The Federal rules restrict any use of the information to criminally investigate or prosecute any alcohol or drug abuse patient.[facility] the event this information is protected by the Federal Confidentiality of Alcohol and Drug Abuse Patient Records regulations: The Federal rules restrict any use of the information to criminally investigate or prosecute any alcohol or drug abuse patient.[facility] the event this information is protected by the Federal Confidentiality of Alcohol and Drug Abuse Patient Records regulations: The Federal rules restrict any use of the information to criminally investigate or prosecute any alcohol or drug abuse patient.[facility] the event this information is protected by the Federal Confidentiality of Alcohol and Drug Abuse Patient Records regulations: The Federal rules restrict any use of the information to criminally investigate or prosecute any alcohol or drug abuse patient.[facility] the event this information is protected by the Federal Confidentiality of Alcohol and Drug Abuse Patient Records regulations: The Federal rules restrict any use of the information to criminally investigate or prosecute any alcohol or drug abuse patient.[facility] the event this information is protected by the Federal Confidentiality of Alcohol and Drug Abuse Patient Records regulations: The Federal rules restrict any use of the information to criminally investigate or prosecute any alcohol or drug abuse patient.[facility] the event this information is protected by the Federal Confidentiality of Alcohol and Drug Abuse Patient Records regulations: The Federal rules restrict any use of the information to criminally investigate or prosecute any alcohol or drug abuse patient.[facility] Hospital[facility] the event this information is protected by the Federal Confidentiality of Alcohol and Drug Abuse Patient Records regulations: The Federal rules restrict any use of the information to criminally investigate or prosecute any alcohol or drug abuse patient.[facility] Reason for Visit (unrecogniz ed section and content) Reason Comments Refill Request Reason Comments Patient Question Reason Comments UTI Possible UTI Reason Comments Patient Update Reason Comments Patient Question Orders Reason Comments Appointment Reason Comments Headache nausea, vomiting x t his am Reason Comments Pain, Throat Pt reported bilatera l neck ear pain, x1 day reported + strep exposure. Reason Comments left groin pain Left groin pain x 1 day Reason Comments Consult Left groin mass Specialty Diagnoses / Procedures Referred By Emma figueroa Referred To Contact General Surgery Diagnoses Groin mass Procedures CONSULT TO GENERAL SURGERY OFFICE/OUTPATIENT [facility] 60-74 MINUTES Junaid Dc, [address] [place] [address] Referral ID Status Reason Start Date Expiration Date V isits Requested Visits Authorized [id number] Closed PCP Requested Referral 06/04/2023 06/03/2024 1 1 Reason Comments Rib Injury left side rib and ar m pain after fall x 4-5 days Reason Comments Procedure Ultrasound Guided Ne edle Core Biopsy left groin lymph node Care Teams (unrecognized sec tion and content) Horse Trainer Relationship Specialty Start Date End Date Elly Rosa MD [address] [facility] [place] [address] PCP - General Internal Medicine 12/14/13 Horse Trainer Relationship Specialty Start Date End Date Elly Rosa MD [address] [facility] [place] [address] PCP - General Internal Medicine 12/14/13 Horse Trainer Relationship Specialty Start Date End Date Elly Rosa MD [address] [facility] [place] [address] PCP - General Internal Medicine 12/14/13 Horse Trainer Relationship Specialty Start Date End Date Elly Rosa MD [address] [facility] [place] [address] PCP - General Internal Medicine 12/14/13 Horse Trainer Relationship Specialty Start Date End Date Elly Rosa MD [address] [facility] [place] [address] PCP - General Internal Medicine 12/14/13 Horse Trainer Relationship Specialty Start Date End Date Elly Rosa MD [address] [facility] [place] [address] PCP - General Internal Medicine 12/14/13 Horse Trainer Relationship Specialty Start Date End Date Elly Rosa MD [address] [facility] [place] [address] PCP - General Internal Medicine 12/14/13 Horse Trainer Relationship Specialty Start Date End Date Elly Rosa MD [address] [facility] [place] [address] PCP - General Internal Medicine 12/14/13 Horse Trainer Relationship Specialty Start Date End Date Elly Rosa MD [address] [facility] [place] [address] PCP - General Internal Medicine 12/14/13 Horse Trainer Relationship Specialty Start Date End Date Elly Rosa MD [address] [place] [address] PCP - General Internal Medicine 12/14/13 Horse Trainer Relationship Specialty Start Date End Date iVpulDeb barbosa [address] [place] [address] PCP - General 09/15/23 INFORMATION SOURCE (unrecogn ized section and content) FOR RECORDS PERTAINING TO PATIENTS WHO ARE OR HAVE BEEN ENROLLED IN A CHEMICAL DEPENDENCY/SUBSTANCEABUSE PROGRAM, SOME INFORMATION MAY BE OMITTED. This clinical summary was aggregated from multiple sources. Caution should be exercised in using it in the provision of clinical care. This summary normalizes information from multiple sources, and as a consequence, information in this document may materially change the coding, format and clinical context of patient data. In addition, data may be omitted in some cases. CLINICAL DECISIONS SHOULD BE BASED ON THE PRIMARY CLINICAL RECORDS. [facility]. provides no warranty or guarantee of the accuracy or completeness of information in this document.
== END | disposition home or self-care (01) ==
LOC: NM 09:15
PROVIDERS: PCP Internal Medicine; Referring Provider Internal Medicine Gastroenterology; Visit Provider Internal Medicine Gastroenterology
DX: K21.9 Gastro-esophageal reflux disease without esophagitis (principal); R11.2 Nausea with vomiting, unspecified; K59.00 Constipation, unspecified; R10.12 Left upper quadrant pain
CPT/HCPCS: 78264; A9541

== ENCOUNTER 2023-10-28 09:30 | Day surgery (SDC) | payer MEDICAID, SELFPAY ==
[2023-10-28] VITALS (7 sets, daily range): BP systolic 92–107; BP diastolic 57–75; PULSE 68–94; RESP 16–18; TEMP 36.4–37.2; O2SAT 97–100; BMI 23.0
--- NOTE | 2023-10-28 | LIP_PTH ---
PATIENT: SHAMAR HSIEH LOC: [facility] U#:[id number] AGE/SX: 38/F ROOM: RE10/28/[address]: Dr. Donna Ziegler MD : 1985 BED: DIS: 10/28/2023 SPEC #: [id number] RECD: 10/28/23 11:47 STATUS: NATHAN REQ #: [id number] REZA: 10/28/23 00:[address]: Donna Ziegler DEPT: SURGICAL PATHOLOGY RECD BY: Saeid Benjamin ENTERED: 10/28/23 11:48 SP TYPE: LIPOMA OTHR DR: Dr. Deb Gay MD Tissues: Soft tissues, NOS Procedures: Special Stain Group II Surgery Specimen Level III Imprint (control) HEADER OPERATION: Excision left inguinal lipoma PRE-OP DIAGNOSIS: Inguinal lymphadenopathy TISSUE SUBMITTED: Left inguinal lipoma MICROSCOPIC DIAGNOSIS Left inguinal lesion, excision: Mature adipose tissue, consistent with lipoma. SJ/mr 10/31/2023 COMMENT The specimen is evaluated by Dr. Estes. Immediate Evaluation = Paucicellular specimen, rare fat cells are noted. MICROSCOPIC DESCRIPTION Slides are reviewed. GROSS DESCRIPTION Received fresh labeled with the patient's name is a specimen designated Left inguinal lipoma. The specimen consists of a piece of bacon adipose tissue measuring 2.0 x 1.0 x 0.5cm. This specimen is bisected and reveals adipose cut surfaces. A section is saved for flow cytometric study if needed. Two touch imprints are prepared at the time of core biopsy. The entire specimen is submitted in one cassette. / 10/28/2023 TC:1 [facility]: [id number], [id number]
[2023-10-28 09:53] LABS: Internal QC Validated? YES +Cl - CLEAR BKGD; Pregnancy, Urine Negative Negative
[2023-10-28] MEDS: Lactated Ringers 1,000 ML 15 ML IV (09:59)
--- NOTE | 2023-10-28 10:33 | HP.PCM.SX_ITS ---
HPI - General General Date of Service: 10/28/23 HPI Narrative SHAMAR HSIEH, is a 38 F who presents for excision of left inguinal lymph node. Patient still been able to notice that denies any changes since the office visit. office visit 09/26/23 HPI: 38-year-old female presents due to a palpable left inguinal lymph node. Patient states this started in June 2023. Patient did have ultrasound done June 18, 2023 which showed a 2 mm x 8 mm lymph node. Patient continued to still noticed this did have a fever of 104 in July but her kids also diagnosed with COVID she was not. Patient was also continue to have some headaches. Patient did see Dr. Carpenter who did not recommend a biopsy percutaneously as it was difficult to see and recommend excision however patient does not do well with anesthesia with a lot of nausea and vomiting afterwards and so she did not want to have to go all the way to [place] for surgery. Patient states the similar in size. Patient also notices a firm nodule on her right hand third digit proximally palmar aspect with about 5 mm in size nontender. [facility] Medical History (Updated 10/24/23 @ 15:49 by Barb Harrell) Abdominal pain Bladder disease Cervical high risk HPV (human papillomavirus) test positive Contact with and (suspected) exposure to other viral communicable diseases Contraceptive management Dysuria Encounter for screening for COVID-19 Encounter to establish care Gastroenteritis GERD (gastroesophageal reflux disease) Heartburn History of abnormal cervical Pap smear history of ANANT History of hiatal hernia History of IBS History of stress test Hx of constipation IBS (irritable bowel syndrome) Knee pain Migraine headache Muscle pain Muscular abdominal pain in left flank Non-smoker Pelvic lymphadenopathy PONV (postoperative nausea and vomiting) Renal stone Seasonal allergies URI (upper respiratory infection) Wears glasses Home Medications fluticasone propionate 50 mcg/actuation nasal spray,suspension 1 spray intranasal BID PRN Allergy Symptoms 01/22/20 [History Last Taken 04/19/22] cetirizine 10 mg capsule (Zyrtec) 10 mg PO QHS PRN Allergy Symptoms 04/20/22 [History Last Taken 04/17/22] polyethylene glycol 3350 17 gram/dose oral powder (ClearLax) 17 g PO PRN SOFTENER 03/03/23 [History Last Taken Unknown] ondansetron HCl 8 mg tablet 8 mg PO Q8H PRN nausea and vomiting #30 tabs 09/12/23 [Rx Last Taken Unknown] linaclotide 290 mcg capsule (Linzess) 290 mcg PO PRN CONSTIPATION 08/29/23 [History Last Taken Unknown] pantoprazole 40 mg tablet,delayed release 40 mg PO DAILY 10/24/23 [History Last Taken 10/28/23] Allergy/AdvReac Type Severity Reaction Status Date / Time Seasonal Allergies: Uncoded Allergy Mild Itching Verified 10/28/23 09:52 morphine Allergy chest pain Verified 10/28/23 09:52 Family History Father Hypertension High cholesterol Suicide attempt Colon cancer Grandmother Colon cancer Thyroid disorder Diabetes Arthritis Myocardial infarction Hypertension High cholesterol Grandfather Myocardial infarction Hypertension High cholesterol Mother High cholesterol Surgical History (Updated 10/24/23 @ 15:49 by Barb Harrell) History of endoscopy History of knee surgery Hx of colonoscopy Hx of cystoscopy S/P laparoscopic appendectomy Social History household members: family Smoking Status: Never smoker second hand exposure: No alcohol intake: current alcohol intake frequency: holidays/special occasions only details: social substance use type: does not use caffeine: Yes what type of physical activity do you participate in: walking, swimming and yoga frequency: daily duration: 15-30 minutes/day seatbelt use: always do you feel safe at home: Yes additional social history: single- babysitting Vital Signs Vital Signs Vital Signs: 10/28/23 09:52 10/28/23 09:52 Temperature 97.6 F L Temperature Source Temporal Pulse Rate 71 Respiratory Rate 18 Respiratory Pattern Normal Blood Pressure 107/75 Blood Pressure Mean 85 Blood Pressure Source Monitor Blood Pressure Position Semi-Fowlers Blood Pressure Location Left Arm Pulse Ox 100 Oxygen Delivery Method Room Air Weight Weight: 134 lb 4.184 oz Body Mass Index (BMI) 23.0 Physical Exam Const oriented x3 and no apparent distress Resp normal respiratory effort Cardio regular rate GI soft to palpation and non-tender GI Narrative: Small palpable lymph node at the left groin about a centimeter in size, no change in overlying skin Results Lab / Micro Data Labs: Laboratory Results - last 24 hr 10/28/23 09:46: Urine Test Negative Assessment & Plan Assessment/Plan (1) Inguinal lymphadenopathy: PLAN: Plan Will plan for excision of the left inguinal lymph node. Discussed the procedure including risks not limited to bleeding, infection, need for further surgery. Patient had no further questions this time. Donna Ziegler M.D. Pager: [phone] [facility] [address] [place] [address] [address] [place] [address] Office: [phone]
[2023-10-28] MEDS: Cefazolin 2 GM in 0.9% Normal Saline (100mL Bag) 100 ML IV (10:49)
[2023-10-28] MEDS: Lidocaine 1% /Epi 1:100 (20ml) 20 ML Vial (10:58)
--- NOTE | 2023-10-28 11:06 | PCM.OPRPT ---
Report of Operation Date of Procedure: 10/28/23 Pre-Operative Diagnosis: Left inguinal lymphadenopathy/subcutaneous mass Post-Operative Diagnosis: Left inguinal lipoma Surgery/Procedure Performed:: Excision of left inguinal lipoma Description of Surgical Findings:: Palpable abnormality is consistent with a lipoma as her previous ultrasound lymph node is more medial and able to be felt on exam and seen with ultrasound in the OR. Surgeon: Donna Ziegler binding folder machine: Nick Fletcher Type of Anesthesia: Local MAC Anesthesiologist: Kaden Martinez Special Medications: Ancef 2 g IV x 1 Specimen's removed: Left inguinal lipoma Estimated Blood Loss (mL): < 5 cc Fluids Replaced: 500 cc Description of Procedure: Indications: 38-year-old female with palpable abnormality of the left region thought to be lymph node initially difficult to see on ultrasound. ultrasound did show a 5 mm normal-appearing lymph node on previous official ultrasound. Plan for excisional biopsy. Description of procedure. Patient brought to operating placed supine on the operating table. Timeout was completed verifying correct patient, procedure, site, positioning, special equipment prior to beginning procedure. MAC anesthesia was induced. Patient's Was prepped and draped in usual sterile fashion with chlorhexidine. Palpable subcutaneous mass was marked. Local anesthesia of 1% lidocaine with epinephrine was infiltrated over the area. An incision was made lipoma was present below this incision accounting for the palpable abnormality. lipoma was 1x0.5x0.5 cm in size. This was removed and sent to pathology. Ultrasound was to use and confirmed that the lymph node seen on previous official ultrasound was more medial to this and not able to be palpated on exam. Hemostasis was assured with electrocautery. Fascia was closed with subdermal 3-0 Vicryl sutures and 4-0 Monocryl at the skin. Steri-Strips and OpSite were also placed. Patient tolerated procedure well and was taken to the postanesthesia care unit in stable condition. Complications none
--- NOTE | 2023-10-28 11:11 | DCINST_ITS ---
Discharge Instructions Diet Discharge Diet: No restrictions Activity Discharge Activity: Return to Normal Activity Dressing / Incision Call your doctor if your incision/area has: Continuous Slow Oozing, Sudden Increased Bleeding and Increased Pain/ Swelling Call your doctor if you observe: Fever of 101 or Higher Follow Up Care Please Follow Up With: Donna Ziegler MD When: Call the office for a follow-up in 2 weeks. Test Results: Test results from this visit will be discussed in further detail at your follow- up appointment, if applicable. Discharge Plan Admission Attending Provider: Donna Ziegler Primary Care Provider: Deb Gay Discharge Orders/Prescriptions Prescriptions: Continued fluticasone propionate 50 mcg/actuation spray,suspension 1 spray INTRANASAL BID PRN (Reason: Allergy Symptoms) Rx Instructions: administer into each nostril Linzess 290 mcg capsule 290 mcg PO PRN Zyrtec 10 mg Capsule 10 mg PO QHS PRN (Reason: Allergy Symptoms) polyethylene glycol 3350 [ClearLax] 17 gram/dose powder 17 g PO PRN pantoprazole 40 mg tablet,delayed release (DR/EC) 40 mg PO DAILY ondansetron HCl 8 mg tablet 8 mg PO Q8H PRN (Reason: nausea and vomiting) Qty: 15 0RF Referrals / Follow Up: Deb Gay MD [Primary Care Provider] - Disposition Disposition (needs filled in before D/C Order can be placed): Home, Self Care
[2023-10-28] MEDS: Ondansetron ODT 4 MG Tablet PO (12:20)
== END 2023-10-28 12:47 | disposition home or self-care (01) ==
LOC: SDC 09:34 → AC 09:36
PROVIDERS: Anesthesiology; PCP Internal Medicine; Referring Provider Surgery; Visit Provider Surgery
PROC: (CPT 38500; principal; 2023-10-28 10:45)
DX: D17.5 Benign lipomatous neoplasm of intra-abdominal organs (principal); K21.9 Gastro-esophageal reflux disease without esophagitis; Z87.19 Personal history of other diseases of the digestive system; Z90.49 Acquired absence of other specified parts of digestive tract
CPT/HCPCS: 22902; 00800; 81025; 88304; 88313; J7120; J2405

== ENCOUNTER → 2023-12-21 | Outpatient (CLI) | payer MEDICAID, SELFPAY ==
[2023-12-24 12:10] LABS: Chlamydia By Nucleic Acid AMP Negative (Negative); Gonococcus By Nucleic Acid AMP Negative (Negative)
== END | disposition home or self-care (01) ==
LOC: LABSPEC 16:07
PROVIDERS: PCP Internal Medicine; Referring Provider Nurse Practitioner Family; Visit Provider Nurse Practitioner Family
DX: Z20.2 Contact with and (suspected) exposure to infections with a predominantly sexual mode of transmission (principal); Z20.828 Contact with and (suspected) exposure to other viral communicable diseases; R10.9 Unspecified abdominal pain
CPT/HCPCS: 87070; 87205; 87491; 87591

== ENCOUNTER → 2024-01-11 | Outpatient (CLI) | payer MEDICAID, SELFPAY ==
--- NOTE | 2024-01-11 15:30 | US_ITS ---
STUDY: ULTRASOUND OF THE FEMALE PELVIS - COMPLETE REASON FOR EXAM: Female, 38 years old. Abdominal pain LMP: Unknown. TECHNIQUE: Transabdominal and Transvaginal TECHNICAL QUALITY: Adequate. COMPARISON: None. FINDINGS: The uterus is anteverted and is in a midline position. The uterus measures 8.6 cm x 4.9 cm x 3.5 cm. Normal uterine cervix. The endometrium measures 2.4 mm in thickness, and is hyperechoic. There is no demonstrated endometrial mass. There is no demonstrated myometrial mass. I.U.D. - The patient does not have an I.U.D. The right ovary is visualized. The right ovary measures 3.2 cm x 2.1 cm x 2.4 cm. There is no right ovarian cyst or ovarian mass. There is no visualized right adnexal mass or complex lesion. There is normal arterial and normal venous vascularity. The left ovary is visualized. The left ovary measures 1.9 cm x 1 cm x 1.2 cm. There is no left ovarian cyst or ovarian mass. There is no visualized left adnexal mass or complex lesion. There is normal arterial and normal venous vascularity. There is no fluid in the cul-de-sac. The pre void volume of the bladder was 172 ml. Incidental note is made of a 2 lymph nodes in the right groin. The larger measures 1.7 cm x 0.9 cm x 0.5 cm US/Pelvic w/ Transvaginal IMPRESSION: Normal female pelvis. Electronically Signed: Marcello Mascorro MD at 8:53 EDT ,
--- NOTE | 2024-01-11 15:30 | US_ITS ---
STUDY: SUPERFICIAL ULTRASOUND - RIGHT THIRD DIGIT REASON FOR EXAM: Female, 38 years old. Assess for ganglion of tendon sheath -- right middle finger TECHNIQUE: A superficial ultrasound was performed with real-time and static [place]-scale imaging. COMPARISON: None. FINDINGS: The palpable lump corresponds to a 5 mm x 5 mm x 2 mm cyst suggestive of a ganglion cyst. US/Ext Non Vasc Limited/Soft Tiss IMPRESSION: The palpable lump corresponds to a 5 mm x 5 mm x 2 mm cyst suggestive of a ganglion cyst. Electronically Signed: Marcello Mascorro MD at 8:55 EDT ,
== END | disposition home or self-care (01) ==
LOC: US 15:27
PROVIDERS: PCP Internal Medicine; Referring Provider Orthopaedic Surgery Sports Medicine; Visit Provider Orthopaedic Surgery Sports Medicine
DX: R10.9 Unspecified abdominal pain (principal); M25.841 Other specified joint disorders, right hand
CPT/HCPCS: 76830; 76856; 76882

== ENCOUNTER → 2024-03-02 | Outpatient (CLI) | payer MEDICAID, SELFPAY ==
[2024-03-02 09:32] LABS: Absolute Lymphocyte Count 1.53 X10^3/uL (0.83-4.51); Absolute Neutrophil Count 3.2 X10^3/uL (2.0-7.7); Basophil# 0.02 X10^3/uL; Basophil% 0.4 % (0-1); Eosinophil# 0.03 X10^3/uL; Eosinophils% 0.6 % (0-5); Hematocrit 42.3 % (37-47); Hemoglobin 13.9 g/dL (12.0-15.0); Lymphocyte # 1.53 X10^3/ul (0.83-4.51); Lymphocyte % 29.8 % (19-41); Mean Corp Hgb Conc 32.9 g/dL (32-36); Mean Corpuscular Volume 94.4 fL (81-99); Mean Platelet Vol. 10.2 fl (6.2-12.0); Monocyte# 0.36 X10^3/uL; NRBC Flagged by Analyzer 0 % (0-5); Neutrophil # 3.19 X10^3/uL (2.7-7.7); Platelet Count 242 K/mm3 (150-450); RBC Distribution Width CV 12.2 % (11.6-14.6); RBC Distribution Width SD 42.9 fl (35.1-43.9); Red Blood Count 4.48 M/mm3 (4.2-5.4); White Blood Count 5.1 K/mm3 (4.4-11.0)
[2024-03-02 10:30] LABS: HIV - WCH Non-Reactive (Nonreactive); Hepatitis C Antibody Non-Reactive (Nonreactive); Syphilis Antibodies Non-reactive
[2024-03-03 07:09] LABS: HSV 1 IgG 1.44 index (0.00-0.90); HSV 2 IgG < 0.91 index (0.00-0.90)
[2024-03-05 22:07] LABS: Chlamydia By Nucleic Acid AMP Negative (Negative); Gonococcus By Nucleic Acid AMP Negative (Negative)
== END | disposition home or self-care (01) ==
PROVIDERS: Nurse Practitioner Family; PCP Internal Medicine; Referring Provider Obstetrics & Gynecology; Visit Provider Obstetrics & Gynecology
DX: Z11.3 Encounter for screening for infections with a predominantly sexual mode of transmission (principal); R59.0 Localized enlarged lymph nodes
CPT/HCPCS: 36415; 85025; 86695; 86696; 86703; 86780; 86803; 87070; 87205; 87491; 87591

== ENCOUNTER → 2024-03-07 | Outpatient (CLI) | payer MEDICAID, SELFPAY ==
[2024-03-07 12:41] LABS: ALB/GLOB Ratio 1.2 RATIO (0.9-2.4); AST(SGOT) 10 U/L (15-37); Alanine Aminotransfer ALT/SGPT 15 U/L (13-56); Albumin, Serum 4.2 g/dL (3.2-5.0); Alkaline Phosphatase 77 U/L (45-117); Anion Gap 4 (5-15); BUN 15 mg/dL (7-18); BUN/Creat Ratio 17.6 RATIO (10-20); Calcium,Total 9.3 mg/dL (8.5-10.1); Chloride 109 mmol/L (98-107); Cholesterol 120 mg/dL (200); Creatinine, Serum 0.85 mg/dL (0.55-1.02); EST Glomerular Filtration Rate 80 mL/min (>60); Est Glom Filt Rate - Afr Amer 96 mL/min (>60); Globulin 3.4 g/dL (2.2-4.2); Glucose 99 mg/dL (74-106); High Density Lipoprotein 38 mg/dL; Potassium 4.2 mmol/L (3.5-5.1); Protein, Total 7.6 g/dL (6.4-8.2); Sodium Level 140 mmol/L (136-145); Triglycerides 70 mg/dL; Very Low Density Lipoprotein 14 mg/dL (5-40)
== END | disposition home or self-care (01) ==
LOC: BIMLAB 08:27
PROVIDERS: PCP Internal Medicine; Referring Provider Internal Medicine; Visit Provider Internal Medicine
DX: Z00.00 Encounter for general adult medical examination without abnormal findings (principal)
CPT/HCPCS: 36415; 80053; 80061

== ENCOUNTER 2024-03-09 15:56 | Outpatient (CLI) | payer MEDICAID, SELFPAY ==
[2024-03-09 16:42] LABS: Erythrocyte Sedimentation Rate 1 mm/hr (0-30)
[2024-03-09 17:28] LABS: CPK Total, Creatine Kinase 62 U/L (26-192); CRP < 2.90 mg/L (0.0-3.0); Ferritin 80 ng/mL (8-252); Rheumatoid Factor < 10.0 IU/mL (<15)
[2024-03-14 13:08] LABS: ACCA 19 units (0-90); ALCA 26 units (0-60); AMCA 41 units (0-100); Albumin 4.2 g/dL (2.9-4.4); Aldolase 3.6 U/L (3.3-10.3); Alpha-1-Globulins 0.2 g/dL (0.0-0.4); Alpha-2-Globulins 0.6 g/dL (0.4-1.0); CCP IgG Antibodies 5 units (0-19); Dopamine, Pl <30 pg/mL (0-48); Endomysial Antibody IgA Negative (Negative); Epinephrine, Pl <15 pg/mL (0-62); Gamma Globulin 0.9 g/dL (0.4-1.8); Gastrin, Serum 19 pg/mL (0-115); Immunoglobulin A 197 mg/dL (87-352); Immunoglobulin G 950 mg/dL (586-1602); Immunoglobulin M 174 mg/dL (26-217); Norepinephrine, Pl 290 pg/mL (0-874); gASCA 85 units (0-50); t-Transglutaminase IgA <2 U/mL (0-3)
[2024-03-16 04:07] LABS: Beef <0.10 kU/L (Class 0); Chocolate <0.10 kU/L (Class 0); Codfish <0.10 kU/L (Class 0); Corn 0.11 kU/L (Class 0/I); Egg, Whole <0.10 kU/L (Class 0); Milk (Cow) <0.10 kU/L (Class 0); Mussels <0.10 kU/L (Class 0); Peanut 0.18 kU/L (Class 0/I); Pork <0.10 kU/L (Class 0); Salmon <0.10 kU/L (Class 0); Shrimp 0.13 kU/L (Class 0/I); Soybean 0.11 kU/L (Class 0/I); Tuna <0.10 kU/L (Class 0); Wheat 0.16 kU/L (Class 0/I)
== END 2024-03-09 23:59 | disposition home or self-care (01) ==
LOC: LAB 15:57
PROVIDERS: PCP Internal Medicine; Referring Provider Internal Medicine Gastroenterology; Visit Provider Internal Medicine Gastroenterology
DX: F50.89 Other specified eating disorder (principal)
CPT/HCPCS: 36415; 82085; 82384; 82533; 82550; 82728; 82784; 82941; 83516; 84165; 85652; 86003; 86005; 86036; 86140; 86200; 86255; 86316; 86334; 86431; 86671

== ENCOUNTER 2024-04-03 12:56 | Outpatient (RCR) | payer MEDICAID, SELFPAY | END 2024-04-30 23:59 | LOC: NS 12:56 | PROVIDERS: PCP Internal Medicine; Referring Provider Internal Medicine Gastroenterology; Visit Provider Internal Medicine Gastroenterology | DX: Z71.3 Dietary counseling and surveillance (principal); Z91.018 Allergy to other foods | CPT/HCPCS: 97802 ==

== ENCOUNTER → 2024-08-02 | Outpatient (CLI) | payer MEDICAID, SELFPAY ==
[2024-08-02 12:48] LABS: T4 Free Direct 0.99 ng/dL (0.76-1.46)
[2024-08-07 13:07] LABS: HPV APTIMA, High Risk Negative (Negative)
== END | disposition home or self-care (01) ==
LOC: BWCLAB 11:33
PROVIDERS: PCP Internal Medicine; Referring Provider Obstetrics & Gynecology; Visit Provider Obstetrics & Gynecology
DX: E04.9 Nontoxic goiter, unspecified (principal); Z12.4 Encounter for screening for malignant neoplasm of cervix
CPT/HCPCS: 36415; 84439; 84443; 87624; 88175; G0145

== ENCOUNTER → 2024-08-06 | Outpatient (CLI) | payer MEDICAID, SELFPAY ==
--- NOTE | 2024-08-06 17:29 | US_ITS ---
STUDY: THYROID ULTRASOUND REASON FOR EXAM: Female, 39 years old. enlarged thyroid TECHNIQUE: Ultrasound evaluation of the thyroid was performed with real-time and static [place]-scale imaging. COMPARISON: None. FINDINGS: RIGHT LOBE: The right lobe of the thyroid gland measures 4.7 x 1.3 x 1.2 cm. There is a homogeneous echotexture. 2 separate simple subcentimeter cysts. Nodules are cystic or nearly completely cystic. TI-RADS points: 0. TI-RADS category: TR1. Cysts are benign and no FNA or follow-up is necessary. LEFT LOBE: The left lobe of the thyroid gland measures 4.8 x 1.4 x 1.0 cm. There is a homogeneous echotexture. There are no demonstrated solid, cystic or complex lesions. ISTHMUS: The isthmus measures 0.3 cm. The regional lymph nodes are normal. US/Thyroid IMPRESSION: Borderline enlarged homogeneous thyroid gland with subcentimeter upper pole cyst in the right thyroid lobe. No specific follow-up needed Electronically Signed: Stew Soriano MD at 23:26 EST ,
== END | disposition home or self-care (01) ==
LOC: US 17:27
PROVIDERS: PCP Internal Medicine; Referring Provider Obstetrics & Gynecology; Visit Provider Obstetrics & Gynecology
DX: E04.9 Nontoxic goiter, unspecified (principal)
CPT/HCPCS: 76536

== ENCOUNTER → 2024-09-12 | Outpatient (CLI) | payer MEDICAID, SELFPAY ==
--- NOTE | 2024-09-12 10:00 | RAD_ITS ---
PROCEDURE: CHEST PA AND LATERAL REASON FOR EXAM: Cough and fever. TECHNIQUE: Frontal and lateral views of the chest. COMPARISON: None. FINDINGS: The heart size is normal. The mediastinal contour is unremarkable. The lungs are clear. Mild thoracic spine degenerative changes are noted. No acute osseous process is seen. RAD/Chest PA and Lateral IMPRESSION: No evidence of acute cardiopulmonary disease. Reading Location: [id number]
[2024-09-12 12:38] LABS: Absolute Lymphocyte Count 1.11 X10^3/uL (0.83-4.51); Absolute Neutrophil Count 3.6 X10^3/uL (2.0-7.7); Basophil# 0.01 X10^3/uL; Basophil% 0.2 % (0-1); Hematocrit 43.8 % (37-47); Hemoglobin 14.1 g/dL (12.0-15.0); Lymphocyte # 1.11 X10^3/ul (0.83-4.51); Lymphocyte % 22.2 % (19-41); Mean Corp Hgb Conc 32.2 g/dL (32-36); Mean Corpuscular Hgb 29.9 pg (27.0-32.0); Mean Corpuscular Volume 92.8 fL (81-99); Monocyte# 0.31 X10^3/uL; Monocyte% 6.2 % (0-10); NRBC Flagged by Analyzer 0 % (0-5); Neutrophil # 3.56 X10^3/uL (2.7-7.7); Platelet Count 237 K/mm3 (150-450); RBC Distribution Width CV 12.3 % (11.6-14.6); RBC Distribution Width SD 42.4 fl (35.1-43.9); Red Blood Count 4.72 M/mm3 (4.2-5.4)
[2024-09-12 13:36] LABS: AST(SGOT) 15 U/L (15-37); Alanine Aminotransfer ALT/SGPT 23 U/L (13-56); Albumin, Serum 4.1 g/dL (3.2-5.0); Alkaline Phosphatase 64 U/L (45-117); Anion Gap 9 (5-15); BUN 9 mg/dL (7-18); BUN/Creat Ratio 12.2 RATIO (10-20); Calcium,Total 9.4 mg/dL (8.5-10.1); Chloride 104 mmol/L (98-107); Creatinine, Serum 0.74 mg/dL (0.55-1.02); EST Glomerular Filtration Rate 94 mL/min (>60); Est Glom Filt Rate - Afr Amer 114 mL/min (>60); Globulin 4.1 g/dL (2.2-4.2); Glucose 109 mg/dL (74-106); Potassium 4.1 mmol/L (3.5-5.1); Protein, Total 8.2 g/dL (6.4-8.2); Sodium Level 138 mmol/L (136-145)
== END | disposition home or self-care (01) ==
PROVIDERS: PCP Internal Medicine; Referring Provider Internal Medicine; Visit Provider Internal Medicine
DX: R05.9 Cough, unspecified (principal); R50.9 Fever, unspecified
CPT/HCPCS: 36415; 71046; 80053; 85025

== ENCOUNTER → 2024-10-25 | Outpatient (CLI) | payer MEDICAID, SELFPAY ==
[2024-10-25 09:51] LABS: Erythrocyte Sedimentation Rate < 1 mm/hr (0-30)
[2024-10-25 10:35] LABS: Vitamin B12 460 pg/mL (180-914)
[2024-10-25 11:18] LABS: Cholesterol 149 mg/dL (<=200); High Density Lipoprotein 47 mg/dL; Low Density Lipoprotein Calc. 89 mg/dL; Triglycerides 64 mg/dL; Very Low Density Lipoprotein 13 mg/dL (5-40); cholesterol:hdl ratio screen 3.15
[2024-10-25 11:23] LABS: ALB/GLOB Ratio 2.8 RATIO (0.9-2.4); AST(SGOT) 20 U/L (<=31); Alanine Aminotransfer ALT/SGPT 18 U/L (<=34); Albumin, Serum 3.8 g/dL (3.5-5.0); Alkaline Phosphatase 84 U/L (35-104); Amylase 77 U/L (28-100); Anion Gap 9 (5-15); BUN 9 mg/dL (4-19); BUN/Creat Ratio 12.9 RATIO (10-20); CRP < 3.00 mg/L (0.0-3.0); Calcium,Total 8.7 mg/dL (7.6-11.0); Carbon Dioxide 25.6 mmol/L (21.0-32.0); Chloride 105 mmol/L (98-108); Creatinine, Serum 0.71 mg/dL (0.70-1.20); EST Glomerular Filtration Rate 112 (>60); Globulin 1.4 g/dL (2.2-4.2); Glucose 89 mg/dL (70-99); Lipase 24 U/L (13-75); Magnesium 1.9 mg/dL (1.5-2.2); Potassium 3.9 mmol/L (3.3-5.1); Protein, Total 5.2 g/dL (5.9-8.4); Sodium Level 140 mmol/L (133-145); Total Bilirubin 0.57 mg/dL (0.00-1.30)
== END | disposition home or self-care (01) ==
LOC: LAB 08:53
PROVIDERS: PCP Internal Medicine; Referring Provider Internal Medicine Gastroenterology; Visit Provider Internal Medicine Gastroenterology
DX: Z91.018 Allergy to other foods (principal)
CPT/HCPCS: 36415; 80053; 80061; 82150; 82607; 82652; 83690; 83735; 85652; 86003; 86140

== ENCOUNTER → 2025-05-06 | Outpatient (CLI) | payer MEDICAID, SELFPAY ==
[2025-05-06 11:38] LABS: Mucous, Urine 0 SEEN /hpf (<or=2+)
[2025-05-06 12:10] LABS: Color, Urine Yellow (Yellow); Glucose, Dipstick Normal (Normal); Ketone-Dipstick Negative (Negative); Leukocyte Esterase-Dipstick Negative /ul (Negative); Nitrite-Dipstick Negative (Negative); Occult Blood-Urine 10 /ul (Negative); Protein-Dipstick Negative (Negative); Specific Gravity, Urine 1.010 (1.002-1.030); Urine Bilirubin Dipstick Negative (Negative)
[2025-05-06 12:21] LABS: Hematocrit 40.0 % (37-47); Hemoglobin 13.7 g/dL (12.0-15.0); Immature Granulocytes Count 0.020 X10^3/uL (0.0-0.0); Mean Corp Hgb Conc 34.3 g/dL (32-36); Mean Corpuscular Volume 90.7 fL (81-99); Mean Platelet Vol. 10.5 fl (6.2-12.0); NRBC Flagged by Analyzer 0 % (0-5); Platelet Count 242 K/mm3 (150-450); RBC Distribution Width CV 12.0 % (11.6-14.6); RBC Distribution Width SD 40.2 fl (35.1-43.9); Red Blood Count 4.41 M/mm3 (4.2-5.4); White Blood Count 7.6 K/mm3 (4.4-11.0)
[2025-05-06 12:24] LABS: Red Blood Cells-Urine 0-5 SEEN /hpf (0-5); Squamous Epithelial Cells - UA 0-5 SEEN /hpf (5-10)
[2025-05-06 12:58] LABS: AST(SGOT) 16 U/L (<=31); Alanine Aminotransfer ALT/SGPT 10 U/L (<=34); Albumin, Serum 4.5 g/dL (3.5-5.0); Alkaline Phosphatase 73 U/L (35-104); Anion Gap 12 (5-15); BUN 12 mg/dL (4-19); BUN/Creat Ratio 17.6 RATIO (10-20); Calcium,Total 9.3 mg/dL (7.6-11.0); Carbon Dioxide 23.2 mmol/L (21.0-32.0); Chloride 104 mmol/L (98-108); Globulin 2.6 g/dL (2.2-4.2); Glucose 99 mg/dL (70-99); Potassium 3.8 mmol/L (3.3-5.1)
== END | disposition home or self-care (01) ==
LOC: BIMLAB 11:38
PROVIDERS: PCP Internal Medicine; Referring Provider Internal Medicine; Visit Provider Internal Medicine
DX: Z00.00 Encounter for general adult medical examination without abnormal findings (principal); R10.9 Unspecified abdominal pain
CPT/HCPCS: 36415; 80053; 81001; 85025

== ENCOUNTER → 2025-06-24 | Outpatient (CLI) | payer MEDICAID, SELFPAY ==
--- NOTE | 2025-06-24 16:03 | RAD_ITS ---
PROCEDURE: SINUSES MIN 3 VIEWS 06/24/2025 REASON FOR EXAM: SINUSITIS TECHNIQUE: Procedure Code: RADSI Modality: DX Procedure: SINUSES 4 VIEWS COMPARISON: None. RAD/Sinuses min 3 Views IMPRESSION: The paranasal sinuses and mastoid air cells appear clear throughout. No air-fluid level is seen. No acute osseous change is identified. Reading Location: [id number]
== END | disposition home or self-care (01) ==
PROVIDERS: PCP Internal Medicine; Referring Provider Internal Medicine Gastroenterology; Visit Provider Internal Medicine Gastroenterology
DX: J32.9 Chronic sinusitis, unspecified (principal); Z91.018 Allergy to other foods
CPT/HCPCS: 70220